=== PATIENT | male | born 1945 | race Caucasian/White ===

== ENCOUNTER 2017-03-02 14:03 | Emergency (ER) | payer MEDICARE ==
[2017-03-02] MEDS ORDERED: ONDANSETRON 4 MG/2 ML VIAL IVP STA (14:23)
[2017-03-02] MEDS ORDERED: DIPHENOX-ATROP STARTER PACK 8 TAB BTL PO STA ×2 (14:23→16:46)
--- NOTE | 2017-03-02 14:33 | ED ---
General Adult HPI - General Chief complaint: Fever Stated complaint: RENALDO sandoval H/O Diabetes Time Seen by Provider: 03/02/17 14:05 Source: patient, RN notes reviewed Mode of arrival: wheelchair Limitations: no limitations - History of Present Illness Initial comments: This is a 71-year-old male who presents to emergency department complaining of starting shaking 2 hours ago. Patient did not realize he had a high fever. Patient states he had diarrhea for last couple of days. Patient states he has not been on any antibiotics recently. Patient states he hasn't been nauseated until he reached the hospital and he vomited times one. Patient states she's only had some abdominal cramping but no abdominal pain. Patient states he did not get influenza shot this year. Patient denies headache patient denies numbness weakness. Patient was lightheadedness dizziness or near syncopal episode. Patient denies any chest pain palpitations difficulty breathing shortest breath per patient denies any cough. Patient denies any back pain. Patient denies any dysuria hematuria urinary frequency. Patient denies any recent recent rashes or lesions. - Related Data Home Medications Medication Instructions Recorded Confirmed Cetirizine HCl [Zyrtec] 10 mg PO HS 04/23/15 03/02/17 Cholecalciferol [Vitamin D3] 1,000 unit PO DAILY 04/23/15 03/02/17 Cilostazol [Pletal] 100 mg PO BID 04/23/15 03/02/17 Clopidogrel [Plavix] 75 mg PO DAILY 04/23/15 03/02/17 Fish Oil/Dha/Epa [Fish Oil 1,200 1 cap PO DAILY 04/23/15 03/02/17 mg Fish Oil] Gabapentin [Neurontin] 800 mg PO QID 04/23/15 03/02/17 Levothyroxine Sodium [Levoxyl] 200 mcg PO DAILY 04/23/15 03/02/17 Melatonin 5 mg PO HS 04/23/15 03/02/17 Multivitamins, Thera [Multivitamin 1 tab PO DAILY 04/23/15 03/02/17 (formulary)] Vitamin B Complex 1 cap PO DAILY 04/23/15 03/02/17 Insulin NPH Human Isophane 42 unit SQ W/BRKFST 04/24/15 03/02/17 [NovoLIN N] Atorvastatin Calcium [Lipitor] 40 mg PO HS 03/02/17 03/02/17 Calcium Carbonate [Calcium] 600 mg PO BID 03/02/17 03/02/17 Ferrous Sulfate [Feosol] 325 mg PO DAILY 03/02/17 03/02/17 Insulin NPH Human Isophane See Protocol SQ HS 03/02/17 03/02/17 [NovoLIN N] Insulin Regular, Human [NovoLIN R] 35 units SQ AC-TID 03/02/17 03/02/17 Insulin Regular, Human [NovoLIN R] See Protocol SQ PC-TID 03/02/17 03/02/17 Lisinopril [Zestril] 20 mg PO BID 03/02/17 03/02/17 Metoprolol Succinate (ER) [Toprol 25 mg PO DAILY 03/02/17 03/02/17 Xl] Pantoprazole Sodium [Protonix] 20 mg PO BID 03/02/17 03/02/17 Ubidecarenone [Co Q-10] 100 mg PO DAILY 03/02/17 03/02/17 metFORMIN HCL [Glucophage] 500 mg PO BID 03/02/17 03/02/17 rOPINIRole HCL [Requip Xl] 2 mg PO HS 03/02/17 03/02/17 Previous Rx's Medication Instructions Recorded Furosemide [Lasix] 40 mg PO DAILY tab 04/26/15 Allergies Allergy/AdvReac Type Severity Reaction Status Date / Time venom-honey bee Allergy Anaphylaxis Verified 03/02/17 16:14 [bee venom (honey bee)] Qmvsoqf-Iqh-Sct Reductase AdvReac Severe Muscle Verified 03/02/17 16:14 Inhibitor Cramping aspirin AdvReac Bleeding Verified 03/02/17 16:14 Ulcers grass pollen-perennial rye, AdvReac Vertigo Verified 03/02/17 16:14 standar [grass poll-perennial rye,std] mold AdvReac Vertigo Verified 03/02/17 16:14 Review of Systems ROS Statement: Those systems with pertinent positive or pertinent negative responses have been documented in the HPI. ROS Other: All systems not noted in ROS Statement are negative. Past Medical History Past Medical History: Atrial Fibrillation, Coronary Artery Disease (CAD), Cancer , COPD, Diabetes Mellitus, GERD/Reflux, GI Bleed, Hyperlipidemia, Hypertension, Osteoarthritis (OA), Renal Disease, Thyroid Disorder Additional Past Medical History / Comment(s): thyroid ca, left adrenal gland ca - removed, arhtritis lower back, enlarged heart, migranies,diverticulitis, pinched nerve in diapragmn, pt stated " i have natrually thin blood" History of Any Multi-Drug Resistant Organisms: None Reported Past Surgical History: Cholecystectomy, Coronary Bypass/CABG, Heart Catheterization With Stent, Tonsillectomy Additional Past Surgical History / Comment(s): thyroidectomy adrenal gland removed, 12 heart cath with stents, "open heart to repair hole in heart" nasal sx for deviated septum,uvulectomy, paratyhroidectomy. Past Anesthesia/Blood Transfusion Reactions: No Reported Reaction Additional Past Anesthesia/Blood Transfusion Reaction / Comment(s): clausterphobia. past blood transfusions without problems. Date of Last Stent Placement:: Past Psychological History: No Psychological Hx Reported Smoking Status: Former smoker Past Alcohol Use History: Rare Additional Past Alcohol Use History / Comment(s): smoked for 3 years then quit at age 22. Past Drug Use History: None Reported Additional Drug Use History / Comment(s): in the 1970s smoked marijuana - Past Family History Father Family Medical History: Renal Disease Additional Family Medical History / Comment(s): heart problems Mother Family Medical History: Diabetes Mellitus General Exam - General Exam Comments Initial Comments: GENERAL: Patient is well-developed and well-nourished. Patient is nontoxic and well- hydrated and is in mild distress. ENT: Neck is soft and supple. No significant lymphadenopathy is noted. Oropharynx is clear. Moist mucous membranes. Neck has full range of motion without eliciting any pain. EYES: The sclera were anicteric and conjunctiva were pink and moist. Extraocular movements were intact and pupils were equal round and reactive to light. Eyelids were unremarkable. PULMONARY: Unlabored respirations. Good breath sounds bilaterally. No audible rales rhonchi or wheezing was noted. CARDIOVASCULAR: There is a regular rate and rhythm without any murmurs gallops or rubs. ABDOMEN: Soft and nontender with normal bowel sounds. No palpable organomegaly was noted. There is no palpable pulsatile mass. SKIN: Skin is clear with no lesions or rashes and otherwise unremarkable. NEUROLOGIC: Patient is alert and oriented x3. Cranial nerves II through XII are grossly intact. Motor and sensory are also intact. Normal speech, volume and content. Symmetrical smile. MUSCULOSKELETAL: Normal extremities with adequate strength and full range of motion. LYMPHATICS: No significant lymphadenopathy is noted PSYCHIATRIC: Normal psychiatric evaluation. Normal interpersonal interactions appears functionally intact in deals appropriately with others. No signs of depression. No signs of anxiety. Limitations: no limitations Course Vital Signs 03/02/17 03/02/17 03/02/17 14:06 14:20 14:24 Temperature 102 F H 102.1 F H Pulse Rate 112 H 107 H Respiratory 20 18 Rate Blood Pressure 184/82 142/63 O2 Sat by Pulse 90 L 95 Oximetry 03/02/17 03/02/17 03/02/17 15:19 16:04 16:40 Temperature 101.1 F H Pulse Rate 78 89 Respiratory 18 16 Rate Blood Pressure 109/55 119/64 108/49 O2 Sat by Pulse 95 96 Oximetry Medical Decision Making - Medical Decision Making EKG shows sinus rhythm with PACs. Patient's rate is 96 bpm LA interval 158 QRS is 136 Q-T intervals 366 QTC is 462 per patient's EKG shows a right bundle branch block. Patient's chest x-ray shows no acute abnormality. I went back into the room the patient was eating ice chips stated he felt considerably better and is willing to go home. Patient states anything gets worse she'll come back into the emergency department - Lab Data Result diagrams: 03/02/17 14:40 03/02/17 14:40 Lab Results 03/02/17 03/02/17 03/02/17 Range/Units 14:40 14:40 14:40 WBC 16.2 H (3.8-10.6) k/uL RBC 4.24 L (4.30-5.90) m/uL Hgb 11.9 L (13.0-17.5) gm/dL Hct 35.0 L (39.0-53.0) % MCV 82.6 (80.0-100.0) fL MCH 28.1 (25.0-35.0) pg MCHC 34.0 (31.0-37.0) g/dL RDW 14.2 (11.5-15.5) % Plt Count 235 (150-450) k/uL Neutrophils % 92 % Lymphocytes % 4 % Monocytes % 4 % Eosinophils % 0 % Basophils % 0 % Neutrophils # 14.9 H (1.3-7.7) k/uL Lymphocytes # 0.6 L (1.0-4.8) k/uL Monocytes # 0.6 (0-1.0) k/uL Eosinophils # 0.1 (0-0.7) k/uL Basophils # 0.0 (0-0.2) k/uL PT (9.0-12.0) sec INR (<1.1) APTT (22.0-30.0) sec Sodium 141 (137-145) mmol/L Potassium 3.9 (3.5-5.1) mmol/L Chloride 107 (98-107) mmol/L Carbon Dioxide 22 (22-30) mmol/L Anion Gap 12 mmol/L BUN 32 H (9-20) mg/dL Creatinine 1.46 H (0.66-1.25) mg/dL Est GFR (MDRD) Af Amer 58 (>60 ml/min/1.73 sqM) Est GFR (MDRD) Non-Af 48 (>60 ml/min/1.73 sqM) Glucose 100 H (74-99) mg/dL Plasma Lactic Acid Artie (0.7-2.0) mmol/L Calcium 8.7 (8.4-10.2) mg/dL Total Bilirubin 0.8 (0.2-1.3) mg/dL AST 26 (17-59) U/L ALT 38 (21-72) U/L Alkaline Phosphatase 80 (38-126) U/L Total Creatine Kinase 254 H (55-170) U/L CK-MB (CK-2) 3.3 H* (0.0-2.4) ng/mL CK-MB (CK-2) Rel Index 1.3 Troponin I <0.012 (0.000-0.034) ng/mL Total Protein 6.9 (6.3-8.2) g/dL Albumin 3.9 (3.5-5.0) g/dL Urine Color Urine Appearance (Clear) Urine pH (5.0-8.0) Ur Specific [place] (1.001-1.035) Urine Protein (Negative) Urine Glucose (UA) (Negative) Urine Ketones (Negative) Urine Blood (Negative) Urine Nitrite (Negative) Urine Bilirubin (Negative) Urine Urobilinogen (<2.0) mg/dL Ur Leukocyte Esterase (Negative) Urine RBC (0-5) /hpf Urine WBC (0-5) /hpf Ur Squamous Epith Cells (0-4) /hpf Cellular Casts (0) /lpf Hyaline Casts (0-2) /lpf Influenza Type A RNA (Not Detectd) Influenza Type B (PCR) (Not Detectd) 03/02/17 03/02/17 03/02/17 Range/Units 14:40 14:40 14:48 WBC (3.8-10.6) k/uL RBC (4.30-5.90) m/uL Hgb (13.0-17.5) gm/dL Hct (39.0-53.0) % MCV (80.0-100.0) fL MCH (25.0-35.0) pg MCHC (31.0-37.0) g/dL RDW (11.5-15.5) % Plt Count (150-450) k/uL Neutrophils % % Lymphocytes % % Monocytes % % Eosinophils % % Basophils % % Neutrophils # (1.3-7.7) k/uL Lymphocytes # (1.0-4.8) k/uL Monocytes # (0-1.0) k/uL Eosinophils # (0-0.7) k/uL Basophils # (0-0.2) k/uL PT 10.6 (9.0-12.0) sec INR 1.0 (<1.1) APTT 23.5 (22.0-30.0) sec Sodium (137-145) mmol/L Potassium (3.5-5.1) mmol/L Chloride (98-107) mmol/L Carbon Dioxide (22-30) mmol/L Anion Gap mmol/L BUN (9-20) mg/dL Creatinine (0.66-1.25) mg/dL Est GFR (MDRD) Af Amer (>60 ml/min/1.73 sqM) Est GFR (MDRD) Non-Af (>60 ml/min/1.73 sqM) Glucose (74-99) mg/dL Plasma Lactic Acid Artie 1.8 (0.7-2.0) mmol/L Calcium (8.4-10.2) mg/dL Total Bilirubin (0.2-1.3) mg/dL AST (17-59) U/L ALT (21-72) U/L Alkaline Phosphatase (38-126) U/L Total Creatine Kinase (55-170) U/L CK-MB (CK-2) (0.0-2.4) ng/mL CK-MB (CK-2) Rel Index Troponin I (0.000-0.034) ng/mL Total Protein (6.3-8.2) g/dL Albumin (3.5-5.0) g/dL Urine Color Urine Appearance (Clear) Urine pH (5.0-8.0) Ur Specific [place] (1.001-1.035) Urine Protein (Negative) Urine Glucose (UA) (Negative) Urine Ketones (Negative) Urine Blood (Negative) Urine Nitrite (Negative) Urine Bilirubin (Negative) Urine Urobilinogen (<2.0) mg/dL Ur Leukocyte Esterase (Negative) Urine RBC (0-5) /hpf Urine WBC (0-5) /hpf Ur Squamous Epith Cells (0-4) /hpf Cellular Casts (0) /lpf Hyaline Casts (0-2) /lpf Influenza Type A RNA Not Detected (Not Detectd) Influenza Type B (PCR) Not Detected (Not Detectd) 03/02/17 Range/Units 16:00 WBC (3.8-10.6) k/uL RBC (4.30-5.90) m/uL Hgb (13.0-17.5) gm/dL Hct (39.0-53.0) % MCV (80.0-100.0) fL MCH (25.0-35.0) pg MCHC (31.0-37.0) g/dL RDW (11.5-15.5) % Plt Count (150-450) k/uL Neutrophils % % Lymphocytes % % Monocytes % % Eosinophils % % Basophils % % Neutrophils # (1.3-7.7) k/uL Lymphocytes # (1.0-4.8) k/uL Monocytes # (0-1.0) k/uL Eosinophils # (0-0.7) k/uL Basophils # (0-0.2) k/uL PT (9.0-12.0) sec INR (<1.1) APTT (22.0-30.0) sec Sodium (137-145) mmol/L Potassium (3.5-5.1) mmol/L Chloride (98-107) mmol/L Carbon Dioxide (22-30) mmol/L Anion Gap mmol/L BUN (9-20) mg/dL Creatinine (0.66-1.25) mg/dL Est GFR (MDRD) Af Amer (>60 ml/min/1.73 sqM) Est GFR (MDRD) Non-Af (>60 ml/min/1.73 sqM) Glucose (74-99) mg/dL Plasma Lactic Acid Artie (0.7-2.0) mmol/L Calcium (8.4-10.2) mg/dL Total Bilirubin (0.2-1.3) mg/dL AST (17-59) U/L ALT (21-72) U/L Alkaline Phosphatase (38-126) U/L Total Creatine Kinase (55-170) U/L CK-MB (CK-2) (0.0-2.4) ng/mL CK-MB (CK-2) Rel Index Troponin I (0.000-0.034) ng/mL Total Protein (6.3-8.2) g/dL Albumin (3.5-5.0) g/dL Urine Color Yellow Urine Appearance Clear (Clear) Urine pH 5.0 (5.0-8.0) Ur Specific [place] 1.012 (1.001-1.035) Urine Protein 1+ H (Negative) Urine Glucose (UA) Negative (Negative) Urine Ketones Negative (Negative) Urine Blood Negative (Negative) Urine Nitrite Negative (Negative) Urine Bilirubin Negative (Negative) Urine Urobilinogen <2.0 (<2.0) mg/dL Ur Leukocyte Esterase Negative (Negative) Urine RBC 1 (0-5) /hpf Urine WBC <1 (0-5) /hpf Ur Squamous Epith Cells <1 (0-4) /hpf Cellular Casts 1 (0) /lpf Hyaline Casts 3 H (0-2) /lpf Influenza Type A RNA (Not Detectd) Influenza Type B (PCR) (Not Detectd) Disposition Clinical Impression: Gastroenteritis Disposition: HOME SELF-CARE Instructions: Gastroenteritis (ED) Time of Disposition: 16:45
[2017-03-02] MEDS: SODIUM CHLORIDE 0.9% 500 ML IV SCH ×3 (14:41→15:54)
[2017-03-02] MEDS ORDERED: IBUPROFEN IV 600 MG in SODIUM CHLORIDE 0.9% 250 ML IV STA (14:46)
[2017-03-02] MEDS ORDERED: ACETAMINOPHEN IV (For NPO) 1,000 MG in EMPTY BAG 1 BAG IVPB STA (14:46)
[2017-03-02 14:55] LABS: Basophils % (A) 0 %; CH 28.3; CHCM 34.5; Eosinophils # (A) 0.1 k/uL (0-0.7); Eosinophils % (A) 0 %; HDW 2.97; HGB 11.9 gm/dL (13.0-17.5); Luc # (Auto) 0.08; Luc % (Auto) 1; Lymphocytes # (A) 0.6 k/uL (1.0-4.8); Lymphocytes % (A) 4 %; MCH 28.1 pg (25.0-35.0); MCV 82.6 fL (80.0-100.0); Monocytes # (A) 0.6 k/uL (0-1.0); Monocytes % (A) 4 %; Neutrophils # (A) 14.9 k/uL (1.3-7.7); Neutrophils % (A) 92 %; RBC 4.24 m/uL (4.30-5.90); RDW 14.2 % (11.5-15.5); WBC 16.2 k/uL (3.8-10.6); WBC (Perox) 16.59
[2017-03-02 15:03] LABS: Partial Thromboplastin Time 23.5 sec (22.0-30.0); Prothrombin Time 10.6 sec (9.0-12.0)
[2017-03-02 15:06] LABS: Calcium 8.7 mg/dL (8.4-10.2); Potassium 3.9 mmol/L (3.5-5.1); Total Bilirubin 0.8 mg/dL (0.2-1.3); Total Protein 6.9 g/dL (6.3-8.2)
--- NOTE | 2017-03-02 15:15 | XR ---
EXAMINATION TYPE: XR chest 2V DATE OF EXAM: 03/02/2017 3:05 PM COMPARISON: Prior chest x-ray 21 October 2015 HISTORY: Fever, abnormal chest x-ray, hypertension TECHNIQUE: Frontal and lateral views of the chest are obtained. FINDINGS: Patient is post median sternotomy and rotated, heart size may be accentuated by rotation a s on prior exam. There is no pneumothorax or pleural effusion. Right hemidiaphragm is mildly elevated . Pulmonary vascularity and apple are stable. No evident airspace disease. Prominent lung volumes are again noted. IMPRESSION: Stable exam. No acute abnormalities evident.
[2017-03-02 15:29] LABS: Creatine Kinase 254 U/L (55-170)
[2017-03-02 15:42] LABS: Creatine Kinase MB 3.3 ng/mL (0.0-2.4); Troponin I <0.012 ng/mL (0.000-0.034)
[2017-03-02 16:14] LABS: Appearance,Urine Clear (Clear); Bilirubin,Urine Negative (Negative); Glucose,Urine (UA) Negative (Negative); Ketones,Urine Negative (Negative); Leukocyte Esterase,Urine Negative (Negative); Nitrite,Urine Negative (Negative); Particle Count 1569; Protein,Urine 1+ (Negative); RBC,Urine 1 /hpf (0-5); Specific Gravity,Urine 1.012 (1.001-1.035); Squamous Epithelial Cell,Urine <1 /hpf (0-4); UA Billing (MACRO vs. MICRO) MICRO; Urobilinogen,Urine <2.0 mg/dL (<2.0); WBC,Urine <1 /hpf (0-5)
[2017-03-02] MEDS ORDERED: ONDANSETRON 4 MG ODT STARTER PACK 2 TAB BTL PO STA (16:46)
[2017-03-02 16:57] VITALS: BP 112/56; PULSE 65; RESP 18; TEMP 97.8
== END 2017-03-02 17:07 | disposition home or self-care (01) ==
LOC: EC 14:03
DX: K52.9 Noninfective gastroenteritis and colitis, unspecified (principal); R11.2 Nausea with vomiting, unspecified; I25.10 Atherosclerotic heart disease of native coronary artery without angina pectoris; E78.5 Hyperlipidemia, unspecified; I10 Essential (primary) hypertension; E11.9 Type 2 diabetes mellitus without complications; K21.9 Gastro-esophageal reflux disease without esophagitis; M19.90 Unspecified osteoarthritis, unspecified site; E07.9 Disorder of thyroid, unspecified; I48.91 Unspecified atrial fibrillation; Z87.891 Personal history of nicotine dependence; Z79.02 Long term (current) use of antithrombotics/antiplatelets; Z79.4 Long term (current) use of insulin; Z79.899 Other long term (current) drug therapy; Z91.030 Bee allergy status; Z88.6 Allergy status to analgesic agent; Z91.048 Other nonmedicinal substance allergy status; Z88.8 Allergy status to other drugs, medicaments and biological substances; Z85.850 Personal history of malignant neoplasm of thyroid; Z95.5 Presence of coronary angioplasty implant and graft; Z90.49 Acquired absence of other specified parts of digestive tract
CPT/HCPCS: 36415; 93005; 80053; 82550; 82553; 83605; 84484; 85025; 85610; 85730; 81001; 87040; 87086; 87502; 71020; 99284; 96365; 96375; 96361; J2405; J0131; S0119; J1741

== ENCOUNTER 2017-03-04 12:21 | Inpatient (IN) | payer MEDICARE ==
--- NOTE | 2017-03-04 13:28 | ED ---
General Adult HPI - General Chief complaint: Fever Stated complaint: poss blood clot in leg Time Seen by Provider: 03/04/17 13:00 Source: patient, RN notes reviewed Mode of arrival: wheelchair Limitations: no limitations - History of Present Illness Initial comments: This is a 71-year-old male who comes to the emergency room complaining of right leg swelling. Patient states he was in the emergency department 2 days ago with nausea vomiting diarrhea and a fever. Patient states the fever has persisted and now is somewhat short of breath. Patient denies any recent cough. Patient denies any chest pain or palpitations. Patient states the leg started swelling once he left the hospital and now is red on the ankle down. Patient states he has some calf pain and some right groin pain. Patient denies any injury or trauma to that leg. Patient denies any abdominal pain. Patient states he has not been vomiting recently. Patient denies any lightheadedness dizziness or near syncopal episode. - Related Data Home Medications Medication Instructions Recorded Confirmed Cetirizine HCl [Zyrtec] 10 mg PO HS 04/23/15 03/04/17 Cilostazol [Pletal] 100 mg PO BID 04/23/15 03/04/17 Clopidogrel [Plavix] 75 mg PO DAILY 04/23/15 03/04/17 Gabapentin [Neurontin] 800 mg PO QID 04/23/15 03/04/17 Levothyroxine Sodium [Levoxyl] 200 mcg PO DAILY 04/23/15 03/04/17 Melatonin 5 mg PO HS 04/23/15 03/04/17 Vitamin B Complex 1 cap PO DAILY 04/23/15 03/04/17 Insulin NPH Human Isophane 90 unit SQ BID 04/24/15 03/04/17 [NovoLIN N] Atorvastatin Calcium [Lipitor] 40 mg PO HS 03/02/17 03/04/17 Insulin Regular, Human [NovoLIN R] 35 units SQ AC-TID 03/02/17 03/04/17 Insulin Regular, Human [NovoLIN R] See Protocol SQ PC-TID 03/02/17 03/04/17 Lisinopril [Zestril] 20 mg PO BID 03/02/17 03/04/17 Pantoprazole Sodium [Protonix] 20 mg PO BID 03/02/17 03/04/17 Ubidecarenone [Co Q-10] 100 mg PO DAILY 03/02/17 03/04/17 metFORMIN HCL [Glucophage] 500 mg PO AC-BID 03/02/17 03/04/17 rOPINIRole HCL [Requip Xl] 2 mg PO HS 03/02/17 03/04/17 Ascorbic Acid [Vitamin C] 500 mg PO DAILY 03/04/17 03/04/17 Calcium Carbonate/Vitamin D3 1 tab PO BID 03/04/17 03/04/17 [Calcium 600-Vit D3 400 Caplet] Cholecalciferol [Vitamin D3] 400 unit PO DAILY 03/04/17 03/04/17 DULoxetine HCL [Cymbalta] 30 mg PO DAILY 03/04/17 03/04/17 Metoprolol Tartrate [Lopressor] 100 mg PO BID 03/04/17 03/04/17 Multivit-Min/FA/Lycopene/Lut 1 tab PO DAILY 03/04/17 03/04/17 [Centrum Silver Tablet] [place]-3 Fatty Acids/Fish Oil [Fish 1 cap PO DAILY 03/04/17 03/04/17 Oil 1,000 mg Softgel] Previous Rx's Medication Instructions Recorded Furosemide [Lasix] 40 mg PO DAILY tab 04/26/15 Allergies Allergy/AdvReac Type Severity Reaction Status Date / Time venom-honey bee Allergy Anaphylaxis Verified 03/04/17 12:52 [bee venom (honey bee)] Oilrnqu-Sno-Wwo Reductase AdvReac Severe Muscle Verified 03/04/17 12:52 Inhibitor Cramping aspirin AdvReac Bleeding Verified 03/04/17 12:52 Ulcers grass pollen-perennial rye, AdvReac Vertigo Verified 03/04/17 12:52 standar [grass poll-perennial rye,std] mold AdvReac Vertigo Verified 03/04/17 12:52 Review of Systems ROS Statement: Those systems with pertinent positive or pertinent negative responses have been documented in the HPI. ROS Other: All systems not noted in ROS Statement are negative. Past Medical History Past Medical History: Atrial Fibrillation, Coronary Artery Disease (CAD), Cancer , COPD, Diabetes Mellitus, GERD/Reflux, GI Bleed, Hyperlipidemia, Hypertension, Osteoarthritis (OA), Renal Disease, Thyroid Disorder Additional Past Medical History / Comment(s): thyroid ca, left adrenal gland ca - removed, arhtritis lower back, enlarged heart, migranies,diverticulitis, pinched nerve in diapragmn, pt stated " i have natrually thin blood" History of Any Multi-Drug Resistant Organisms: None Reported Past Surgical History: Cholecystectomy, Coronary Bypass/CABG, Heart Catheterization With Stent, Tonsillectomy Additional Past Surgical History / Comment(s): thyroidectomy adrenal gland removed, 12 heart cath with stents, "open heart to repair hole in heart" nasal sx for deviated septum,uvulectomy, paratyhroidectomy. Past Anesthesia/Blood Transfusion Reactions: No Reported Reaction Additional Past Anesthesia/Blood Transfusion Reaction / Comment(s): clausterphobia. past blood transfusions without problems. Date of Last Stent Placement:: Past Psychological History: No Psychological Hx Reported Smoking Status: Former smoker Past Alcohol Use History: Rare Additional Past Alcohol Use History / Comment(s): smoked for 3 years then quit at age 22. Past Drug Use History: None Reported Additional Drug Use History / Comment(s): in the 1970s smoked marijuana - Past Family History Father Family Medical History: Renal Disease Additional Family Medical History / Comment(s): heart problems Mother Family Medical History: Diabetes Mellitus General Exam - General Exam Comments Initial Comments: GENERAL: Patient is well-developed and well-nourished. Patient is nontoxic and well- hydrated and is in mild distress. ENT: Neck is soft and supple. No significant lymphadenopathy is noted. Oropharynx is clear. Moist mucous membranes. Neck has full range of motion without eliciting any pain. EYES: The sclera were anicteric and conjunctiva were pink and moist. Extraocular movements were intact and pupils were equal round and reactive to light. Eyelids were unremarkable. PULMONARY: Unlabored respirations. Good breath sounds bilaterally. No audible rales rhonchi or wheezing was noted. CARDIOVASCULAR: There is a regular rate and rhythm without any murmurs gallops or rubs. ABDOMEN: Soft and nontender with normal bowel sounds. No palpable organomegaly was noted. There is no palpable pulsatile mass. SKIN: The leg has some petechiae in the lower aspect of it is also swollen when compared to the left leg NEUROLOGIC: Patient is alert and oriented x3. Cranial nerves II through XII are grossly intact. Motor and sensory are also intact. Normal speech, volume and content. Symmetrical smile. MUSCULOSKELETAL: Normal extremities with adequate strength and full range of motion. Left leg is swollen and there is calf tenderness. LYMPHATICS: No significant lymphadenopathy is noted PSYCHIATRIC: Normal psychiatric evaluation. Normal interpersonal interactions appears functionally intact in deals appropriately with others. No signs of depression. No signs of anxiety. Limitations: no limitations Course Vital Signs 03/04/17 03/04/17 03/04/17 12:53 13:52 14:59 Temperature 98.4 F 98.3 F 97.7 F Pulse Rate 74 76 75 Respiratory 16 18 18 Rate Blood Pressure 136/67 120/57 95/52 O2 Sat by Pulse 96 96 96 Oximetry 03/04/17 03/04/17 16:51 18:15 Temperature 97.4 F L 98.0 F Pulse Rate 77 84 Respiratory 18 18 Rate Blood Pressure 114/56 123/59 O2 Sat by Pulse 97 96 Oximetry Medical Decision Making - Medical Decision Making At 71 bpm NH interval 160 QRS is under 44 QT interval is 448. QTC is 484 6. Patient has reportedly branch block. Patient's EKG is unchanged from the previous EKG. I went back into reevaluate the patient and is in her right thigh was now erythematous and very tender to touch. The ultrasound of the leg was negative for DVT. Patient's CAT scan showed no DVT. Because the patient's redness on the leg I did start patient on Levaquin. I spoke with Dr. Tanner admitted the patient I wrote admitting orders. - Lab Data Result diagrams: 03/04/17 13:34 03/04/17 13:34 Lab Results 03/04/17 03/04/17 03/04/17 Range/Units 13:34 13:34 13:34 WBC 13.2 H (3.8-10.6) k/uL RBC 4.10 L (4.30-5.90) m/uL Hgb 11.4 L (13.0-17.5) gm/dL Hct 34.4 L (39.0-53.0) % MCV 84.0 (80.0-100.0) fL MCH 27.8 (25.0-35.0) pg MCHC 33.1 (31.0-37.0) g/dL RDW 14.5 (11.5-15.5) % Plt Count 204 (150-450) k/uL Neutrophils % 85 % Lymphocytes % 8 % Monocytes % 5 % Eosinophils % 0 % Basophils % 0 % Neutrophils # 11.2 H (1.3-7.7) k/uL Lymphocytes # 1.0 (1.0-4.8) k/uL Monocytes # 0.6 (0-1.0) k/uL Eosinophils # 0.0 (0-0.7) k/uL Basophils # 0.0 (0-0.2) k/uL PT (9.0-12.0) sec INR (<1.1) APTT (22.0-30.0) sec D-Dimer (<0.60) mg/L FEU Sodium 140 (137-145) mmol/L Potassium 3.8 (3.5-5.1) mmol/L Chloride 107 (98-107) mmol/L Carbon Dioxide 21 L (22-30) mmol/L Anion Gap 12 mmol/L BUN 32 H (9-20) mg/dL Creatinine 1.52 H (0.66-1.25) mg/dL Est GFR (MDRD) Af Amer 55 (>60 ml/min/1.73 sqM) Est GFR (MDRD) Non-Af 46 (>60 ml/min/1.73 sqM) Glucose 193 H (74-99) mg/dL Plasma Lactic Acid Artie (0.7-2.0) mmol/L Calcium 7.7 L (8.4-10.2) mg/dL Total Bilirubin 1.0 (0.2-1.3) mg/dL AST 33 (17-59) U/L ALT 34 (21-72) U/L Alkaline Phosphatase 69 (38-126) U/L Total Creatine Kinase 437 H (55-170) U/L CK-MB (CK-2) 5.9 H* (0.0-2.4) ng/mL CK-MB (CK-2) Rel Index 1.4 Troponin I <0.012 (0.000-0.034) ng/mL Total Protein 6.5 (6.3-8.2) g/dL Albumin 3.4 L (3.5-5.0) g/dL Urine Color Urine Appearance (Clear) Urine pH (5.0-8.0) Ur Specific [place] (1.001-1.035) Urine Protein (Negative) Urine Glucose (UA) (Negative) Urine Ketones (Negative) Urine Blood (Negative) Urine Nitrite (Negative) Urine Bilirubin (Negative) Urine Urobilinogen (<2.0) mg/dL Ur Leukocyte Esterase (Negative) 03/04/17 03/04/17 03/04/17 Range/Units 13:34 13:34 16:06 WBC (3.8-10.6) k/uL RBC (4.30-5.90) m/uL Hgb (13.0-17.5) gm/dL Hct (39.0-53.0) % MCV (80.0-100.0) fL MCH (25.0-35.0) pg MCHC (31.0-37.0) g/dL RDW (11.5-15.5) % Plt Count (150-450) k/uL Neutrophils % % Lymphocytes % % Monocytes % % Eosinophils % % Basophils % % Neutrophils # (1.3-7.7) k/uL Lymphocytes # (1.0-4.8) k/uL Monocytes # (0-1.0) k/uL Eosinophils # (0-0.7) k/uL Basophils # (0-0.2) k/uL PT 10.9 (9.0-12.0) sec INR 1.1 (<1.1) APTT 27.4 (22.0-30.0) sec D-Dimer 1.04 H (<0.60) mg/L FEU Sodium (137-145) mmol/L Potassium (3.5-5.1) mmol/L Chloride (98-107) mmol/L Carbon Dioxide (22-30) mmol/L Anion Gap mmol/L BUN (9-20) mg/dL Creatinine (0.66-1.25) mg/dL Est GFR (MDRD) Af Amer (>60 ml/min/1.73 sqM) Est GFR (MDRD) Non-Af (>60 ml/min/1.73 sqM) Glucose (74-99) mg/dL Plasma Lactic Acid Artie 1.4 (0.7-2.0) mmol/L Calcium (8.4-10.2) mg/dL Total Bilirubin (0.2-1.3) mg/dL AST (17-59) U/L ALT (21-72) U/L Alkaline Phosphatase (38-126) U/L Total Creatine Kinase (55-170) U/L CK-MB (CK-2) (0.0-2.4) ng/mL CK-MB (CK-2) Rel Index Troponin I (0.000-0.034) ng/mL Total Protein (6.3-8.2) g/dL Albumin (3.5-5.0) g/dL Urine Color Yellow Urine Appearance Clear (Clear) Urine pH 5.5 (5.0-8.0) Ur Specific [place] 1.010 (1.001-1.035) Urine Protein Trace H (Negative) Urine Glucose (UA) Negative (Negative) Urine Ketones Negative (Negative) Urine Blood Negative (Negative) Urine Nitrite Negative (Negative) Urine Bilirubin Negative (Negative) Urine Urobilinogen <2.0 (<2.0) mg/dL Ur Leukocyte Esterase Negative (Negative) Disposition Clinical Impression: Cellulitis of right leg Disposition: ADMITTED IP TO THIS [facility] Referrals: Maria T Alvarado MD [Primary Care Provider] - 1-2 days Time of Disposition: 18:55
[2017-03-04 13:59] LABS: Basophils % (A) 0 %; CHCM 33.5; Eosinophils % (A) 0 %; HCT 34.4 % (39.0-53.0); HDW 2.99; HGB 11.4 gm/dL (13.0-17.5); Luc # (Auto) 0.29; Luc % (Auto) 2; Lymphocytes % (A) 8 %; MCH 27.8 pg (25.0-35.0); MCHC 33.1 g/dL (31.0-37.0); Mean Platelet Volume 7.2; Monocytes # (A) 0.6 k/uL (0-1.0); Monocytes % (A) 5 %; Neutrophils # (A) 11.2 k/uL (1.3-7.7); Neutrophils % (A) 85 %; RDW 14.5 % (11.5-15.5); WBC 13.2 k/uL (3.8-10.6); WBC (Perox) 13.69
[2017-03-04 14:08] LABS: Calcium 7.7 mg/dL (8.4-10.2); Potassium 3.8 mmol/L (3.5-5.1); Total Protein 6.5 g/dL (6.3-8.2)
--- NOTE | 2017-03-04 14:09 | XR ---
EXAMINATION TYPE: XR chest 2V DATE OF EXAM: 03/04/2017 1:56 PM COMPARISON: 03-02-17 HISTORY: Shortness of breath TECHNIQUE: Frontal and lateral views of the chest are obtained. FINDINGS: Scattered senescent parenchymal changes noted. Hyperinflation compatible with COPD. No evidence for infiltrate. No evidence for atelectasis. Heart size is enlarged. Chronic elevation right hemidiaphragm. Central prominence of the pulmonary ar teries may reflect pulmonary arterial hypertension. Mediastinal structures are stable and grossly unremarkable. No evidence for hilar prominence. Degenerative changes dorsal spine. IMPRESSION: 1. No evidence for acute pulmonary disease. Stable chest.
[2017-03-04 14:16] LABS: INR 1.1 (<1.1); Partial Thromboplastin Time 27.4 sec (22.0-30.0); Prothrombin Time 10.9 sec (9.0-12.0)
[2017-03-04 14:22] LABS: Creatine Kinase 437 U/L (55-170)
--- NOTE | 2017-03-04 14:29 | US ---
EXAMINATION TYPE: US venous doppler duplex LE RT DATE OF EXAM: 03/04/2017 2:15 PM COMPARISON: US CLINICAL HISTORY: Pain. Right leg pain and swelling x 3 days, patient on blood thinners SIDE PERFORMED: Right TECHNIQUE: The lower extremity deep venous system is examined utilizing real time linear array sonog meg with graded compression, doppler sonography and color-flow sonography. VESSELS IMAGED: External Iliac Vein (EIV) Common Femoral Vein Deep Femoral Vein Greater Saphenous Vein * Femoral Vein Popliteal Vein Small Saphenous Vein * Proximal Calf Veins (* superficial vessels) Right Leg: Appears negative for DVT IMPRESSION: 1. No diagnostic evidence of DVT
[2017-03-04 14:36] LABS: Troponin I <0.012 ng/mL (0.000-0.034)
[2017-03-04 14:38] LABS: Creatine Kinase MB 5.9 ng/mL (0.0-2.4)
[2017-03-04 16:20] LABS: Appearance,Urine Clear (Clear); Bilirubin,Urine Negative (Negative); Glucose,Urine (UA) Negative (Negative); Ketones,Urine Negative (Negative); Leukocyte Esterase,Urine Negative (Negative); Nitrite,Urine Negative (Negative); PH, Urine 5.5 (5.0-8.0); Protein,Urine Trace (Negative); UA Billing (MACRO vs. MICRO) CHEM; Urobilinogen,Urine <2.0 mg/dL (<2.0)
[2017-03-04] MEDS ORDERED: RX INFO: IV CONTRAST WAS GIVEN 1 EACH MISC MISCELLANE PRN (16:41)
[2017-03-04] MEDS ORDERED: SODIUM CHLORIDE 0.9% 1,000 ML IV ONE ×2 (16:42→19:03)
[2017-03-04] MEDS ORDERED: LEVOFLOXACIN 750MG-D5W PMX 750 MG in DEXTROSE/WATER 1 150ML.BAG IVPB STA (16:52)
--- NOTE | 2017-03-04 18:49 | CT ---
EXAMINATION TYPE: CT chest angio for PE DATE OF EXAM: 03/04/2017 6:36 PM COMPARISON: NONE HISTORY: Patient complains of difficulty breathing. CT DLP: 640 mGycm CONTRAST: CT chest with contrast and 3D reconstruction with MIP imaging is performed with IV Contrast, patient injected with 100 mL of Visipaque 320. Contrast-enhanced CT of the chest was performed through the course of the pulmonary arteries with jose luis g and mediastinal window settings submitted. 3D reconstruction with MIP imaging was also performed. PULMONARY ARTERIES: The pulmonary arteries and their major tributaries are patent. I do not see nayely dence for sizable filling defect to suggest pulmonary embolic process. LUNGS: The lungs are clear and free of infiltrate. Dependent basilar atelectasis. No pulmonary nodule or mass is detected. No pleural effusion. MEDIASTINUM: Aneurysm, ascending thoracic aorta measuring 5.1 cm AP dimension. There is evidence of c ardiomegaly. No evidence for mediastinal mass. No mediastinal lymph nodes greater than 1cm. HILAR STRUCTURES: No evidence for mass. No hilar lymph nodes greater than 1 cm. UPPER ABDOMEN: No significant abnormality is seen. IMPRESSION: 1. No evidence for Pulmonary embolism at this time.
[2017-03-04 21:06] LABS: Glucose,Whole Blood 192 mg/dL (75-99)
[2017-03-04 22:07] VITALS: BMI 36.2
[2017-03-05] MEDS ORDERED: ACETAMINOPHEN TAB 325 MG TAB PO PRN (00:22)
[2017-03-05] MEDS: MELATONIN 5 MG TABLET PO SCH ×2 (01:44→20:50)
[2017-03-05] MEDS: LEVOTHYROXINE 100 MCG TAB PO SCH (06:21)
[2017-03-05 07:05] LABS: Glucose,Whole Blood 161 mg/dL (75-99)
[2017-03-05] MEDS ORDERED: metFORMIN 500 MG TAB PO SCH (07:30)
[2017-03-05] MEDS: FUROSEMIDE 40 MG TAB PO SCH (08:37)
[2017-03-05] MEDS: PANTOPRAZOLE 40 MG TABLET PO SCH ×2 (08:37→17:06)
[2017-03-05] MEDS: CLOPIDOGREL 75 MG TAB PO SCH (08:37)
[2017-03-05] MEDS: DULoxetine HCL 30 MG CAPSULE.DR PO SCH (08:37)
[2017-03-05] MEDS: LISINOPRIL 20 MG TAB PO SCH ×2 (08:38→20:49)
[2017-03-05] MEDS: METOPROLOL TARTRATE 50 MG TAB PO SCH ×2 (08:38→20:50)
[2017-03-05] MEDS: GABAPENTIN 400 MG CAP PO SCH ×4 (08:38→20:49)
[2017-03-05] MEDS: INSULIN LISPRO (humaLOG) 300 UNIT/3 ML VIAL SQ SCH ×4 (08:40→20:51)
[2017-03-05] MEDS: INSULIN NPH 300 UNIT/3 ML VIAL SQ SCH ×2 (08:40→20:53)
[2017-03-05] MEDS: INSULIN REGULAR 100 UNIT/ML VIAL SQ SCH ×3 (08:58→17:04)
[2017-03-05] MEDS: HYDROcodone/APAP 5-325MG 1 EACH TAB PO PRN ×3 (11:05→20:48)
[2017-03-05 11:39] LABS: Glucose,Whole Blood 163 mg/dL (75-99)
[2017-03-05 11:52] LABS: Hemoglobin A1C 7.3 % (4.2-6.1)
--- NOTE | 2017-03-05 14:15 | P.HPIM ---
History of Present Illness H&P Date: 03/05/17 Chief Complaint: Right leg swelling with redness This is a 71-year-old male, patient of Dr. Alvarado. He has a known past medical history of diabetes mellitus, chronic kidney disease, paroxysmal atrial fibrillation, coronary artery disease with cardiac stent and bypass surgery. Also history of irritable bowel syndrome, peptic ulcer disease and GI bleed. Patient had initially been to the emergency room a couple a days ago due to having diarrhea. Diagnosed with a gastroenteritis at that time. He was sent home. Patient then noticed that he was starting to have right leg swelling and redness along the new bone. He denies any injury to the leg. He started to have fever and chills. And came into the emergency room for further evaluation and treatment. He also had episodes of shortness of breath. He was concerned about a possible blood clot. D-dimer was checked and elevated at 1.04. CT of the chest was completed and was negative for PE Doppler study of the right leg with negative for DVT. Chest x-ray was also negative. EKG showing a normal sinus rhythm with a right bundle branch block. He was started on Levaquin in the emergency room for right lower extremity cellulitis. White count elevated at 13.2. And Lasix will be switched IV Ancef. Stool be checked for diarrhea. He reports that he's been having the diarrhea for about 10 days. He's had episodes of diarrhea before like this with known irritable bowel syndrome. Last colonoscopy was about a year ago and at that time they're checking the source of his anemia. He had require capsule endoscopy as well. No bleeding was noted on any of these tests. Per patient's he they thought there was a small bleeding vessel inside his bowel. And it has resolved. And since then has had no further bleeding episodes. Patient denies any vomiting. Denies any burning with urination. Review of Systems Please refer to HPI otherwise unremarkable Past Medical History Past Medical History: Atrial Fibrillation, Coronary Artery Disease (CAD), Cancer , COPD, Diabetes Mellitus, GERD/Reflux, GI Bleed, Hyperlipidemia, Hypertension, Osteoarthritis (OA), Renal Disease, Thyroid Disorder Additional Past Medical History / Comment(s): thyroid ca, left adrenal gland ca - removed, arhtritis lower back, enlarged heart, migranies,diverticulitis, pinched nerve in diapragmn, pt stated " i have natrually thin blood" History of Any Multi-Drug Resistant Organisms: None Reported Past Surgical History: Cholecystectomy, Coronary Bypass/CABG, Heart Catheterization With Stent, Tonsillectomy Additional Past Surgical History / Comment(s): thyroidectomy adrenal gland removed, 12 heart cath with stents, "open heart to repair hole in heart" nasal sx for deviated septum,uvulectomy, paratyhroidectomy. Past Anesthesia/Blood Transfusion Reactions: No Reported Reaction Additional Past Anesthesia/Blood Transfusion Reaction / Comment(s): clausterphobia. past blood transfusions without problems. Date of Last Stent Placement:: Past Psychological History: No Psychological Hx Reported Smoking Status: Former smoker Past Alcohol Use History: Rare Additional Past Alcohol Use History / Comment(s): smoked for 3 years then quit at age 22. Past Drug Use History: None Reported Additional Drug Use History / Comment(s): in the s smoked marijuana - Past Family History Father Family Medical History: Renal Disease Additional Family Medical History / Comment(s): heart problems Mother Family Medical History: Diabetes Mellitus Medications and Allergies Home Medications Medication Instructions Recorded Confirmed Type Cetirizine HCl [Zyrtec] 10 mg PO HS 04/23/15 03/04/17 History Cilostazol [Pletal] 100 mg PO BID 04/23/15 03/04/17 History Clopidogrel [Plavix] 75 mg PO DAILY 04/23/15 03/04/17 History Gabapentin [Neurontin] 800 mg PO QID 04/23/15 03/04/17 History Levothyroxine Sodium [Levoxyl] 200 mcg PO DAILY 04/23/15 03/04/17 History Melatonin 5 mg PO HS 04/23/15 03/04/17 History Vitamin B Complex 1 cap PO DAILY 04/23/15 03/04/17 History Insulin NPH Human Isophane 90 unit SQ BID 04/24/15 03/04/17 History [NovoLIN N] Atorvastatin Calcium [Lipitor] 40 mg PO HS 03/02/17 03/04/17 History Insulin Regular, Human [NovoLIN R] 35 units SQ AC-TID 03/02/17 03/04/17 History Insulin Regular, Human [NovoLIN R] See Protocol SQ PC-TID 03/02/17 03/04/17 History Lisinopril [Zestril] 20 mg PO BID 03/02/17 03/04/17 History Pantoprazole Sodium [Protonix] 20 mg PO BID 03/02/17 03/04/17 History Ubidecarenone [Co Q-10] 100 mg PO DAILY 03/02/17 03/04/17 History metFORMIN HCL [Glucophage] 500 mg PO AC-BID 03/02/17 03/04/17 History rOPINIRole HCL [Requip Xl] 2 mg PO HS 03/02/17 03/04/17 History Ascorbic Acid [Vitamin C] 500 mg PO DAILY 03/04/17 03/04/17 History Calcium Carbonate/Vitamin D3 1 tab PO BID 03/04/17 03/04/17 History [Calcium 600-Vit D3 400 Caplet] Cholecalciferol [Vitamin D3] 400 unit PO DAILY 03/04/17 03/04/17 History DULoxetine HCL [Cymbalta] 30 mg PO DAILY 03/04/17 03/04/17 History Metoprolol Tartrate [Lopressor] 100 mg PO BID 03/04/17 03/04/17 History Multivit-Min/FA/Lycopene/Lut 1 tab PO DAILY 03/04/17 03/04/17 History [Centrum Silver Tablet] [place]-3 Fatty Acids/Fish Oil [Fish 1 cap PO DAILY 03/04/17 03/04/17 History Oil 1,000 mg Softgel] Acetaminophen Tab [Tylenol Tab] 650 mg PO Q6H PRN 03/05/17 03/05/17 History Allergies Allergy/AdvReac Type Severity Reaction Status Date / Time venom-honey bee Allergy Anaphylaxis Verified 03/04/17 12:52 [bee venom (honey bee)] Svabjip-Okk-Ikn Reductase AdvReac Severe Muscle Verified 03/04/17 12:52 Inhibitor Cramping aspirin AdvReac Bleeding Verified 03/04/17 12:52 Ulcers grass pollen-perennial rye, AdvReac Vertigo Verified 03/04/17 12:52 standar [grass poll-perennial rye,std] mold AdvReac Vertigo Verified 03/04/17 12:52 Physical Exam Vitals: Vital Signs Temp Pulse Pulse Resp BP BP BP 03/05/17 08:23 03/05/17 07:00 97.0 F L 82 18 143/75 03/04/17 23:00 99.7 F H 84 18 140/61 03/04/17 21:00 98.2 F 84 20 153/70 03/04/17 20:21 98.6 F 90 18 142/86 Pulse Ox 03/05/17 08:23 95 03/05/17 07:00 95 03/04/17 23:00 97 03/04/17 21:00 98 03/04/17 20:21 98 Intake and Output 03/04/17 03/05/17 03/05/17 22:59 06:59 14:59 Other: # Voids 1 1 Weight 135 kg Head normocephalic Neck supple Lungs clear to auscultation bilaterally no wheezing or crackles Heart regular rate and rhythm S1-S2, no rub or gallop Abdomen is soft nontender nondistended positive bowel sounds no hepatosplenomegaly Extremities right lower extremity swelling with erythema and warmth noted along the right tibia. A swelling noted on the left lower extremity Neuro alert and orientated to 3 Results CBC & Chem 7: 03/04/17 13:34 03/04/17 13:34 Labs: Abnormal Lab Results - Last 24 Hours (Table) 03/04/17 03/05/17 03/05/17 Range/Units 20:50 06:55 11:37 POC Glucose (mg/dL) 192 H 161 H 163 H (75-99) mg/dL Thrombosis Risk Factor Assmnt - Choose All That Apply Any of the Below Risk Factors Present?: No Other Risk Factors: Yes Each Risk Factor Represents 2 Points: Age 61-74 years Thrombosis Risk Factor Assessment Total Risk Factor Score: 2 Thrombosis Risk Factor Assessment Level: Low Risk Assessment and Plan Plan: 1. Right lower extremity cellulitis: Start patient on Ancef 1 g IV every 8 hours. Also add Silvadene cream. Isidra leg with Kerlix and Migel wrap. Keep leg elevated. Check blood culture. Doppler of the right leg negative for DVT 2. Elevated d-dimer on admission CTA was negative for PE Doppler negative for DVT. 3. Shortness of breath on admission. PE has been ruled out. Chest x-ray negative. With known history of atrial fibrillation we'll place patient on cardiac monitoring to monitor for any arrhythmia. He's been on room air satting at 95%. Denies cough 4. History of paroxysmal atrial fibrillation not on anticoagulations due to history of bleeding 5. History of coronary artery disease with. His cardiac stents and bypass surgery 6. Diarrhea check stool for C. diff. recently seen in emergency room and treated as gastroenteritis 7. History of chronic kidney disease 8. 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 Diabetes mellitus resume patient's insulin and add sliding scale coverage 10. Essential hypertension resume lisinopril and metoprolol 11. Hypothyroidism resume Synthroid Prophylaxis subcu heparin and GI prophylaxis Pepcid Time with Patient: Greater than 30 (Greater than 50% of the total time spent in counseling and coordination of care.I performed an examination of the patient and discussed their management with the physician Employee Benefits Coordinator. I have reviewed the Physician Employee Benefits Coordinator's notes and agree with the documented findings and plan of care)
[2017-03-05] MEDS: ceFAZolin 1,000 MG in DEXTROSE/WATER 1 50ML.BAG IVPB SCH (14:47)
[2017-03-05 17:20] LABS: Glucose,Whole Blood 52 mg/dL (75-99)
[2017-03-05 17:20] LABS: Glucose,Whole Blood 48 mg/dL (75-99)
[2017-03-05 17:20] LABS: Glucose,Whole Blood 44 mg/dL (75-99)
[2017-03-05 17:38] LABS: Glucose,Whole Blood 63 mg/dL (75-99)
[2017-03-05 17:56] LABS: Glucose,Whole Blood 76 mg/dL (75-99)
[2017-03-05] MEDS ORDERED: LEVOFLOXACIN 750MG-D5W PMX 750 MG in DEXTROSE/WATER 1 150ML.BAG IVPB SCH (18:00)
[2017-03-05] MEDS: ATORVASTATIN 40 MG TAB PO SCH (20:49)
[2017-03-05] MEDS: CALCIUM CARB-VIT D 500MG-200UN 1 EACH TAB PO SCH (20:49)
[2017-03-05] MEDS: LORATADINE 10 MG TAB PO SCH (20:49)
[2017-03-05] MEDS: CILOSTAZOL 100 MG TAB PO SCH (20:50)
[2017-03-05] MEDS: HEPARIN SODIUM,PORCINE 5,000 UNIT/ML 1 ML VIAL SQ SCH (20:50)
[2017-03-05 20:52] LABS: Glucose,Whole Blood 124 mg/dL (75-99)
[2017-03-06] MEDS: ceFAZolin 1,000 MG in DEXTROSE/WATER 1 50ML.BAG IVPB SCH ×3 (00:32→15:35)
[2017-03-06] MEDS: HYDROcodone/APAP 5-325MG 1 EACH TAB PO PRN ×5 (01:10→22:04)
[2017-03-06] MEDS: LEVOTHYROXINE 100 MCG TAB PO SCH (06:18)
[2017-03-06 07:33] LABS: Glucose,Whole Blood 103 mg/dL (75-99)
[2017-03-06] MEDS: INSULIN LISPRO (humaLOG) 300 UNIT/3 ML VIAL SQ SCH ×4 (07:38→21:08)
[2017-03-06] MEDS: INSULIN REGULAR 100 UNIT/ML VIAL SQ SCH ×3 (07:39→17:40)
[2017-03-06] MEDS: CHOLECALCIFEROL 400 UNIT TAB PO SCH (07:41)
[2017-03-06] MEDS: PANTOPRAZOLE 40 MG TABLET PO SCH ×2 (07:41→17:40)
[2017-03-06] MEDS: CALCIUM CARB-VIT D 500MG-200UN 1 EACH TAB PO SCH ×2 (07:41→21:06)
[2017-03-06] MEDS: FAMOTIDINE 20 MG TAB PO SCH (07:42)
[2017-03-06] MEDS: CLOPIDOGREL 75 MG TAB PO SCH (07:42)
[2017-03-06] MEDS: CILOSTAZOL 100 MG TAB PO SCH ×2 (07:42→21:06)
[2017-03-06] MEDS: DULoxetine HCL 30 MG CAPSULE.DR PO SCH (07:42)
[2017-03-06] MEDS: GABAPENTIN 400 MG CAP PO SCH ×4 (07:43→21:07)
[2017-03-06] MEDS: HEPARIN SODIUM,PORCINE 5,000 UNIT/ML 1 ML VIAL SQ SCH ×2 (07:43→21:06)
[2017-03-06] MEDS: FUROSEMIDE 40 MG TAB PO SCH (07:43)
[2017-03-06] MEDS: INSULIN NPH 300 UNIT/3 ML VIAL SQ SCH ×2 (07:43→21:08)
[2017-03-06] MEDS: METOPROLOL TARTRATE 50 MG TAB PO SCH ×2 (07:45→21:07)
[2017-03-06] MEDS: LISINOPRIL 20 MG TAB PO SCH ×2 (07:46→21:06)
[2017-03-06 09:25] LABS: ALT 32 U/L (21-72); AST 24 U/L (17-59); Alkaline Phosphatase 72 U/L (38-126); Anion Gap 11 mmol/L; Blood Urea Nitrogen 28 mg/dL (9-20); Calcium 7.4 mg/dL (8.4-10.2); Carbon Dioxide 19 mmol/L (22-30); Chloride 111 mmol/L (98-107); Glucose 112 mg/dL (74-99); Non-African American GFR(MDRD) 59 (>60 ml/min/1.73 sqM); Potassium 3.9 mmol/L (3.5-5.1); Sodium 141 mmol/L (137-145); Total Bilirubin 0.6 mg/dL (0.2-1.3); Total Protein 6.1 g/dL (6.3-8.2)
[2017-03-06 09:43] LABS: Basophils % (A) 0 %; CHCM 33.4; Eosinophils # (A) 0.2 k/uL (0-0.7); Eosinophils % (A) 2 %; HCT 33.6 % (39.0-53.0); HDW 3.15; Luc # (Auto) 0.41; Luc % (Auto) 4; Lymphocytes # (A) 1.3 k/uL (1.0-4.8); Lymphocytes % (A) 11 %; MCH 27.7 pg (25.0-35.0); MCHC 32.8 g/dL (31.0-37.0); MCV 84.3 fL (80.0-100.0); Mean Platelet Volume 7.2; Monocytes # (A) 0.9 k/uL (0-1.0); Monocytes % (A) 8 %; Neutrophils # (A) 8.5 k/uL (1.3-7.7); Neutrophils % (A) 76 %; RBC 3.99 m/uL (4.30-5.90); RDW 14.3 % (11.5-15.5); WBC 11.2 k/uL (3.8-10.6); WBC (Perox) 10.52
[2017-03-06] MEDS: MULTIVITAMINS, THERA 1 EACH TAB PO SCH (12:19)
[2017-03-06 12:25] LABS: Glucose,Whole Blood 145 mg/dL (75-99)
--- NOTE | 2017-03-06 15:16 | P.PN ---
Subjective Principal diagnosis: Lower extremity cellulitis This is a 71-year-old male, patient of Dr. Alvarado Patient had initially been to the emergency room a couple a days ago due to having diarrhea. Diagnosed with a gastroenteritis at that time. He was sent home. Patient then noticed that he was starting to have right leg swelling and redness along the new bone. He denies any injury to the leg. He started to have fever and chills. And came into the emergency room for further evaluation and treatment. He also had episodes of shortness of breath. He was concerned about a possible blood clot. D-dimer was checked and elevated at 1.04. CT of the chest was completed and was negative for PE Doppler study of the right leg with negative for DVT. Chest x-ray was also negative. EKG showing a normal sinus rhythm with a right bundle branch block. He was started on Levaquin in the emergency room for right lower extremity cellulitis. White count elevated at 13.2. Objective - Vital Signs Vital signs: Vital Signs Temp 97.8 F 03/06/17 07:00 Pulse 74 03/06/17 07:00 Resp 18 03/06/17 07:00 BP 135/90 03/06/17 07:00 Pulse Ox 97 03/06/17 07:00 Intake & Output 03/05/17 03/06/17 03/06/17 18:59 06:59 18:59 Intake Total 595 Balance 595 Intake: Oral 595 Other: # Voids 3 2 3 # Bowel Movements 1 - Exam In general patient is alert and oriented 3 in no apparent distress HEENT head normocephalic and atraumatic Neck is supple no JVD no goiter no lymphadenopathy Chest exam reveals crackles in both lung singh no wheezing Cardiac exam reveals regular heart sounds no murmurs abdomen is soft nontender no organomegaly Extremity exam reveals no edema no cyanosis or clubbing There is severe erythema in the right lower extremity both in the front and the back extending from the ankle up to the knee area - Labs CBC & Chem 7: 03/06/17 08:17 03/06/17 08:17 Labs: Abnormal Lab Results - Last 24 Hours (Table) 03/05/17 03/05/17 03/05/17 Range/Units 16:58 17:00 17:17 WBC (3.8-10.6) k/uL RBC (4.30-5.90) m/uL Hgb (13.0-17.5) gm/dL Hct (39.0-53.0) % Neutrophils # (1.3-7.7) k/uL Chloride (98-107) mmol/L Carbon Dioxide (22-30) mmol/L BUN (9-20) mg/dL Glucose (74-99) mg/dL POC Glucose (mg/dL) 44 L 48 L 52 L (75-99) mg/dL Calcium (8.4-10.2) mg/dL Total Protein (6.3-8.2) g/dL Albumin (3.5-5.0) g/dL 03/05/17 03/05/17 03/06/17 Range/Units 17:35 20:50 06:51 WBC (3.8-10.6) k/uL RBC (4.30-5.90) m/uL Hgb (13.0-17.5) gm/dL Hct (39.0-53.0) % Neutrophils # (1.3-7.7) k/uL Chloride (98-107) mmol/L Carbon Dioxide (22-30) mmol/L BUN (9-20) mg/dL Glucose (74-99) mg/dL POC Glucose (mg/dL) 63 L 124 H 103 H (75-99) mg/dL Calcium (8.4-10.2) mg/dL Total Protein (6.3-8.2) g/dL Albumin (3.5-5.0) g/dL 03/06/17 03/06/17 03/06/17 Range/Units 08:17 08:17 12:18 WBC 11.2 H (3.8-10.6) k/uL RBC 3.99 L (4.30-5.90) m/uL Hgb 11.0 L (13.0-17.5) gm/dL Hct 33.6 L (39.0-53.0) % Neutrophils # 8.5 H (1.3-7.7) k/uL Chloride 111 H (98-107) mmol/L Carbon Dioxide 19 L (22-30) mmol/L BUN 28 H (9-20) mg/dL Glucose 112 H (74-99) mg/dL POC Glucose (mg/dL) 145 H (75-99) mg/dL Calcium 7.4 L (8.4-10.2) mg/dL Total Protein 6.1 L (6.3-8.2) g/dL Albumin 3.1 L (3.5-5.0) g/dL Assessment and Plan Plan: 1. Right lower extremity cellulitis: Start patient on Ancef 1 g IV every 8 hours. Also add Silvadene cream. Isidra leg with Kerlix and Migel wrap. Keep leg elevated. Check blood culture. Doppler of the right leg negative for DVT 2. Elevated d-dimer on admission CTA was negative for PE Doppler negative for DVT. 3. Shortness of breath on admission. PE has been ruled out. Chest x-ray negative. With known history of atrial fibrillation we'll place patient on cardiac monitoring to monitor for any arrhythmia. He's been on room air satting at 95%. Denies cough 4. History of paroxysmal atrial fibrillation not on anticoagulations due to history of bleeding 5. History of coronary artery disease with. His cardiac stents and bypass surgery 6. Diarrhea check stool for C. diff. recently seen in emergency room and treated as gastroenteritis 7. History of chronic kidney disease 8. 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 Diabetes mellitus resume patient's insulin and add sliding scale coverage 10. Essential hypertension resume lisinopril and metoprolol 11. Hypothyroidism resume Synthroid
[2017-03-06 17:08] LABS: Glucose,Whole Blood 48 mg/dL (75-99)
[2017-03-06 17:55] LABS: Glucose,Whole Blood 60 mg/dL (75-99)
[2017-03-06 17:55] LABS: Glucose,Whole Blood 50 mg/dL (75-99)
[2017-03-06 17:55] LABS: Glucose,Whole Blood 70 mg/dL (75-99)
[2017-03-06] MEDS: DAPTOmycin 500 MG in SODIUM CHLORIDE 0.9% 50 ML IV SCH (18:53)
[2017-03-06 20:52] LABS: Glucose,Whole Blood 131 mg/dL (75-99)
[2017-03-06] MEDS: MELATONIN 5 MG TABLET PO SCH (21:06)
[2017-03-06] MEDS: ATORVASTATIN 40 MG TAB PO SCH (21:06)
[2017-03-06] MEDS: LORATADINE 10 MG TAB PO SCH (21:06)
[2017-03-06] MEDS: ZOLPIDEM 5 MG TAB PO PRN (22:04)
[2017-03-06] MEDS ORDERED: NYSTAT-TRIAMCIN 100,000-0.1 UNIT/GM-% CREAM 30 GM TUBE TOPICAL SCH (23:45)
--- NOTE | 2017-03-06 23:53 | P.CONS ---
History of Present Illness - Reason for Consult Consult date: 03/06/17 - Chief Complaint pain and swelling to the right leg - History of Present Illness Alicia 71-year-old male with history of multiple medical troubles includes diabetes mellitus type 2 Moss[place] well controlled, coronary artery disease , paroxysmal atrial fibrillation and obesity. Presents to Hospital with a several day history of feeling ill. He started with what he thought was the flu. Associated with fever and chill and even some diarrhea. He then developed some significant pain and swelling to the right lower extremity. He was evaluated. Since antibiotic therapy was given. However markedly worsening is now then hospitalized with significant cellulitis of the right lower extremity. With the slow improvement the infectious diseases consultation is been requested. Alicia gentleman relates that is the first event. He has no trauma prior to its onset. He is denying any injury that he can recall to the site. He has not had this particular problem in the past. He does feel that the leg is very uncomfortable. It is swollen and erythematous and has a burning characteristic. 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 His other he was having significant fevers and chills that are improving and feels poorly still at this time. Transfer text Review of Systems HEENT:Denies headache or acute visual change. Denies sinus or mouth discomforts. Denies neck stiffness or pain. Denies significant oral cavity pain. Denies difficulty on swallowing. Lungs: Denies significant shortness of breath, cough, sputum production, or hemoptysis. Cardiovascular: Denies significant shortness of breath, chest pain, chest wall pain, orthopnea, dyspnea on exertion, syncope Gastrointestinal:Denies nausea, vomiting, diarrhea, constipation, hematemesis, melena, hematochezia. No no significant change of bowel habit noticed. Musculoskeletal: denies significant myalgias or arthralgias. No new joint swelling. Denies new back pain. Skin:as per the HPI Neuro: Denies headache or visual change. Denies any new onset weakness or difficulty with ambulation. Denies falls or seizures. Psychiatric:Denies anxiety or depression. Endocrine: Denies significant fatigue, denies significant weight loss or weight gain. Past Medical History Past Medical History: Atrial Fibrillation, Coronary Artery Disease (CAD), Cancer , COPD, Diabetes Mellitus, GERD/Reflux, GI Bleed, Hyperlipidemia, Hypertension, Osteoarthritis (OA), Renal Disease, Thyroid Disorder Additional Past Medical History / Comment(s): thyroid ca, left adrenal gland ca - removed, arhtritis lower back, enlarged heart, migranies,diverticulitis, pinched nerve in diapragmn, pt stated " i have natrually thin blood" History of Any Multi-Drug Resistant Organisms: None Reported Past Surgical History: Cholecystectomy, Coronary Bypass/CABG, Heart Catheterization With Stent, Tonsillectomy Additional Past Surgical History / Comment(s): thyroidectomy adrenal gland removed, 12 heart cath with stents, "open heart to repair hole in heart" nasal sx for deviated septum,uvulectomy, paratyhroidectomy. Past Anesthesia/Blood Transfusion Reactions: No Reported Reaction Additional Past Anesthesia/Blood Transfusion Reaction / Comm: clausterphobia. past blood transfusions without problems. Date of Last Stent Placement:: Past Psychological History: No Psychological Hx Reported Additional Psychological History / Comment(s): . 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 No experience. No international travel. No animal exposures. Adult children who are healthy Smoking Status: Former smoker Past Alcohol Use History: Rare Additional Past Alcohol Use History / Comment(s): smoked for 3 years then quit at age 22. Past Drug Use History: None Reported Additional Drug Use History / Comment(s): in the 1970s smoked marijuana - Past Family History Father Family Medical History: Renal Disease Additional Family Medical History / Comment(s): heart problems Mother Family Medical History: Diabetes Mellitus Medications and Allergies Home Medications and Allergies Comment(s): Current Medications Acetaminophen (Tylenol Tab) 650 mg PO Q6H PRN PRN Reason: Pain Last Admin: 03/05/17 00:52 Dose: 650 mg Hydrocodone Bitart/Acetaminophen ([place] 5-325) 1 each PO Q4HR PRN PRN Reason: Moderate Pain Last Admin: 03/06/17 22:04 Dose: 1 each Atorvastatin Calcium (Lipitor) 40 mg PO HS [facility] Last Admin: 03/06/17 21:06 Dose: 40 mg Calcium Carbonate (Oscal 500+D) 1 each PO BID [facility] Last Admin: 03/06/17 21:06 Dose: 1 each Cholecalciferol (Vitamin D3) 400 unit PO DAILY [facility] Last Admin: 03/06/17 07:41 Dose: 400 unit Cilostazol (Pletal) 100 mg PO BID [facility] Last Admin: 03/06/17 21:06 Dose: 100 mg Clopidogrel Bisulfate (Plavix) 75 mg PO DAILY [facility] Last Admin: 03/06/17 07:42 Dose: 75 mg Duloxetine HCl (Cymbalta) 30 mg PO DAILY [facility] Last Admin: 03/06/17 07:42 Dose: 30 mg Famotidine (Pepcid) 20 mg PO DAILY [facility] Last Admin: 03/06/17 07:42 Dose: 20 mg Furosemide (Lasix) 40 mg PO DAILY [facility] Last Admin: 03/06/17 07:43 Dose: 40 mg Gabapentin (Neurontin) 800 mg PO QID [facility] Last Admin: 03/06/17 21:07 Dose: 800 mg Heparin Sodium (Porcine) (Heparin) 5,000 unit SQ Q12HR [facility] Last Admin: 03/06/17 21:06 Dose: Not Given Daptomycin 500 mg/ Sodium (Chloride) 50 mls @ 100 mls/hr IV Q24H [facility] Last Admin: 03/06/17 18:53 Dose: 100 mls/hr Insulin Human Lispro (Humalog) 0 unit SQ ACHS [facility] PRN Reason: Protocol Last Admin: 03/06/17 21:08 Dose: Not Given Insulin Human NPH (Humulin N) 90 unit SQ BID [facility] Last Admin: 03/06/17 21:08 Dose: 45 unit Insulin Human Regular (Humulin R) 35 unit SQ AC-TID [facility] Last Admin: 03/06/17 17:40 Dose: Not Given Levothyroxine Sodium (Synthroid) 200 mcg PO 0630 [facility] Last Admin: 03/06/17 06:18 Dose: 200 mcg Lisinopril (Zestril) 20 mg PO BID [facility] Last Admin: 03/06/17 21:06 Dose: 20 mg Loratadine (Claritin) 10 mg PO HS [facility] Last Admin: 03/06/17 21:06 Dose: 10 mg Melatonin (Melatonin) 5 mg PO HS [facility] Last Admin: 03/06/17 21:06 Dose: 5 mg Metoprolol Tartrate (Lopressor) 100 mg PO BID [facility] Last Admin: 03/06/17 21:07 Dose: 100 mg Multivitamins (Theragran) 1 each PO DAILY@1200 [facility] Last Admin: 03/06/17 12:19 Dose: 1 each Pantoprazole Sodium (Protonix) 40 mg PO AC-BID [facility] Last Admin: 03/06/17 17:40 Dose: Not Given Ropinirole HCl (Requip) 0.5 mg PO TID [facility] Last Admin: 03/06/17 21:07 Dose: 0.5 mg Silver Sulfadiazine (Silvadene Cream) 1 applic TOPICAL DAILY [facility] Last Admin: 03/06/17 07:43 Dose: 1 applic Zolpidem Tartrate (Ambien) 5 mg PO HS PRN PRN Reason: Insomnia Last Admin: 03/06/17 22:04 Dose: 5 mg Home Medications Medication Instructions Recorded Confirmed Type Cetirizine HCl [Zyrtec] 10 mg PO HS 04/23/15 03/04/17 History Cilostazol [Pletal] 100 mg PO BID 04/23/15 03/04/17 History Clopidogrel [Plavix] 75 mg PO DAILY 04/23/15 03/04/17 History Gabapentin [Neurontin] 800 mg PO QID 04/23/15 03/04/17 History Levothyroxine Sodium [Levoxyl] 200 mcg PO DAILY 04/23/15 03/04/17 History Melatonin 5 mg PO HS 04/23/15 03/04/17 History Vitamin B Complex 1 cap PO DAILY 04/23/15 03/04/17 History Insulin NPH Human Isophane 90 unit SQ BID 04/24/15 03/04/17 History [NovoLIN N] Atorvastatin Calcium [Lipitor] 40 mg PO HS 03/02/17 03/04/17 History Insulin Regular, Human [NovoLIN R] 35 units SQ AC-TID 03/02/17 03/04/17 History Insulin Regular, Human [NovoLIN R] See Protocol SQ PC-TID 03/02/17 03/04/17 History Lisinopril [Zestril] 20 mg PO BID 03/02/17 03/04/17 History Pantoprazole Sodium [Protonix] 20 mg PO BID 03/02/17 03/04/17 History Ubidecarenone [Co Q-10] 100 mg PO DAILY 03/02/17 03/04/17 History metFORMIN HCL [Glucophage] 500 mg PO AC-BID 03/02/17 03/04/17 History rOPINIRole HCL [Requip Xl] 2 mg PO HS 03/02/17 03/04/17 History Ascorbic Acid [Vitamin C] 500 mg PO DAILY 03/04/17 03/04/17 History Calcium Carbonate/Vitamin D3 1 tab PO BID 03/04/17 03/04/17 History [Calcium 600-Vit D3 400 Caplet] Cholecalciferol [Vitamin D3] 400 unit PO DAILY 03/04/17 03/04/17 History DULoxetine HCL [Cymbalta] 30 mg PO DAILY 03/04/17 03/04/17 History Metoprolol Tartrate [Lopressor] 100 mg PO BID 03/04/17 03/04/17 History Multivit-Min/FA/Lycopene/Lut 1 tab PO DAILY 03/04/17 03/04/17 History [Centrum Silver Tablet] [place]-3 Fatty Acids/Fish Oil [Fish 1 cap PO DAILY 03/04/17 03/04/17 History Oil 1,000 mg Softgel] Acetaminophen Tab [Tylenol Tab] 650 mg PO Q6H PRN 03/05/17 03/05/17 History Allergies Allergy/AdvReac Type Severity Reaction Status Date / Time venom-honey bee Allergy Anaphylaxis Verified 03/04/17 12:52 [bee venom (honey bee)] Rkhshgz-[id number]-[id number] Reductase AdvReac Severe Muscle Verified 03/04/17 12:52 Inhibitor Cramping aspirin AdvReac Bleeding Verified 03/04/17 12:52 Ulcers grass pollen-perennial rye, AdvReac Vertigo Verified 03/04/17 12:52 standar [grass poll-perennial rye,std] mold AdvReac Vertigo Verified 03/04/17 12:52 Physical Exam Vitals: Vital Signs Temp Pulse Resp BP BP Pulse Ox 03/06/17 15:00 98.0 F 69 20 142/71 98 03/06/17 07:00 97.8 F 74 18 135/90 97 Intake and Output 03/06/17 03/06/17 03/07/17 14:59 22:59 06:59 Intake Total 595 Balance 595 Intake: Oral 595 Other: # Voids 3 2 71-year-old male who suffers from obesity relates it is more comfortable at a HEENT: Anicteric conjunctiva are pink and moist nasal mucosa grossly intact without significant lesions, there is no thrush. Neck: The neck is supple without significant lymphadenopathy or thyromegaly. Lungs: Symmetric air entry is noted. Few expiratory wheezes are scattered. No coby bronchial sounds are noted. No egophony or dullness. Heart: irregular ith soft S4 There is no significant murmur click or rub, PMI was nondisplaced. Abdomen:obese Positive bowel sounds soft and nontender without palpable masses or organomegaly. There was no guarding or rebound. Extremities: The upper extremities have excellent pulses they are symmetric, no significant petechiae or telangiectasia. No splinter hemorrhages were noted. The left lower extremity has no acute lesions. Right lower extremity shows evidence of the extensive cellulitis on the pretibial surface distal the does traverse proximally especially on the posterior calf to above the knee. There significant very tender lymphadenopathy to the right groin. Left leg without lesions. Right foot shows evidence of the bit of dermatophytosis it's also noted on that foot. No open ulcerations are seen. Neuro: Awake alert oriented to person place and time. There are no acute new gross focal sensory motor deficits. Results CBC & Chem 7: 03/06/17 08:17 03/06/17 08:17 Labs: Abnormal Lab Results - Last 24 Hours (Table) 03/06/17 03/06/17 03/06/17 Range/Units 06:51 08:17 08:17 WBC 11.2 H (3.8-10.6) k/uL RBC 3.99 L (4.30-5.90) m/uL Hgb 11.0 L (13.0-17.5) gm/dL Hct 33.6 L (39.0-53.0) % Neutrophils # 8.5 H (1.3-7.7) k/uL Chloride 111 H (98-107) mmol/L Carbon Dioxide 19 L (22-30) mmol/L BUN 28 H (9-20) mg/dL Glucose 112 H (74-99) mg/dL POC Glucose (mg/dL) 103 H (75-99) mg/dL Calcium 7.4 L (8.4-10.2) mg/dL Total Protein 6.1 L (6.3-8.2) g/dL Albumin 3.1 L (3.5-5.0) g/dL 03/06/17 03/06/17 03/06/17 Range/Units 12:18 17:03 17:18 WBC (3.8-10.6) k/uL RBC (4.30-5.90) m/uL Hgb (13.0-17.5) gm/dL Hct (39.0-53.0) % Neutrophils # (1.3-7.7) k/uL Chloride (98-107) mmol/L Carbon Dioxide (22-30) mmol/L BUN (9-20) mg/dL Glucose (74-99) mg/dL POC Glucose (mg/dL) 145 H 48 L 50 L (75-99) mg/dL Calcium (8.4-10.2) mg/dL Total Protein (6.3-8.2) g/dL Albumin (3.5-5.0) g/dL 03/06/17 03/06/17 03/06/17 Range/Units 17:32 17:52 20:50 WBC (3.8-10.6) k/uL RBC (4.30-5.90) m/uL Hgb (13.0-17.5) gm/dL Hct (39.0-53.0) % Neutrophils # (1.3-7.7) k/uL Chloride (98-107) mmol/L Carbon Dioxide (22-30) mmol/L BUN (9-20) mg/dL Glucose (74-99) mg/dL POC Glucose (mg/dL) 60 L 70 L 131 H (75-99) mg/dL Calcium (8.4-10.2) mg/dL Total Protein (6.3-8.2) g/dL Albumin (3.5-5.0) g/dL Laboratory Results WBC 11.2 k/uL (3.8-10.6) H 03/06/17 08: RBC 3.99 m/uL (4.30-5.90) L 03/06/17 08:17 Hgb 11.0 gm/dL (13.0-17.5) L 03/06/17 08: Hct 33.6 % (39.0-53.0) L 03/06/17 08: MCV 84.3 fL (80.0-100.0) 03/06/17 08: MCH 27.7 pg (25.0-35.0) 03/06/17 08: MCHC 32.8 g/dL (31.0-37.0) 03/06/17 08:17 RDW 14.3 % (11.5-15.5) 03/06/17 08:17 Plt Count 221 k/uL (150-450) 03/06/17 08:17 Neutrophils % 76 % 03/06/17 08:17 Lymphocytes % 11 % 03/06/17 08:17 Monocytes % 8 % 03/06/17 08:17 Eosinophils % 2 % 03/06/17 08: Basophils % 0 % 03/06/17 08:17 Neutrophils # 8.5 k/uL (1.3-7.7) H 03/06/17 08:17 Lymphocytes # 1.3 k/uL (1.0-4.8) 03/06/17 08:17 Monocytes # 0.9 k/uL (0-1.0) 03/06/17 08:17 Eosinophils # 0.2 k/uL (0-0.7) 03/06/17 08: Basophils # 0.0 k/uL (0-0.2) 03/06/17 08:17 PT 10.9 sec (9.0-12.0) 03/04/17 13:34 INR 1.1 (<1.1) 03/04/17 13:34 APTT 27.4 sec (22.0-30.0) 03/04/17 13:34 D-Dimer 1.04 mg/L FEU (<0.60) H 03/04/17 13:34 Sodium 141 mmol/L (137-145) 03/06/17 08:17 Potassium 3.9 mmol/L (3.5-5.1) 03/06/17 08:17 Chloride 111 mmol/L (98-107) H 03/06/17 08:17 Carbon Dioxide 19 mmol/L (22-30) L 03/06/17 08:17 Anion Gap 11 mmol/L 03/06/17 08:17 BUN 28 mg/dL (9-20) H 03/06/17 08:17 Creatinine 1.21 mg/dL (0.66-1.25) 03/06/17 08:17 Est GFR (MDRD) Af Amer >60 (>60 ml/min/1.73 sqM) 03/06/17 08:17 Est GFR (MDRD) Non-Af 59 (>60 ml/min/1.73 sqM) 03/06/17 08:17 Glucose 112 mg/dL (74-99) H 03/06/17 08:17 POC Glucose (mg/dL) 131 mg/dL (75-99) H 03/06/17 20:50 POC Glu [employer] Yuridia Strange 03/06/17 20:[address] Glu mg/dL 163 mg/dL 03/04/17 13:34 Hemoglobin A1c 7.3 % (4.2-6.1) H 03/04/17 13:34 Plasma Lactic Acid Artie 1.4 mmol/L (0.7-2.0) 03/04/17 13:34 Calcium 7.4 mg/dL (8.4-10.2) L 03/06/17 08:17 Total Bilirubin 0.6 mg/dL (0.2-1.3) 03/06/17 08:17 AST 24 U/L (17-59) 03/06/17 08:17 ALT 32 U/L (21-72) 03/06/17 08:17 Alkaline Phosphatase 72 U/L (38-126) 03/06/17 08:17 Total Creatine Kinase 437 U/L (55-170) H 03/04/17 13:34 CK-MB (CK-2) 5.9 ng/mL (0.0-2.4) H* 03/04/17 13:34 CK-MB (CK-2) Rel Index 1.4 03/04/17 13:34 Troponin I <0.012 ng/mL (0.000-0.034) 03/04/17 13:34 Total Protein 6.1 g/dL (6.3-8.2) L 03/06/17 08:17 Albumin 3.1 g/dL (3.5-5.0) L 03/06/17 08:17 Urine Color Yellow 03/04/17 16:06 Urine Appearance Clear (Clear) 03/04/17 16:06 Urine pH 5.5 (5.0-8.0) 03/04/17 16:06 Ur Specific [place] 1.010 (1.001-1.035) 03/04/17 16:06 Urine Protein Trace (Negative) H 03/04/17 16:06 Urine Glucose (UA) Negative (Negative) 03/04/17 16:06 Urine Ketones Negative (Negative) 03/04/17 16:06 Urine Blood Negative (Negative) 03/04/17 16:06 Urine Nitrite Negative (Negative) 03/04/17 16:06 Urine Bilirubin Negative (Negative) 03/04/17 16:06 Urine Urobilinogen <2.0 mg/dL (<2.0) 03/04/17 16:06 Ur Leukocyte Esterase Negative (Negative) 03/04/17 16:06 C. difficile (EIA) Intrp Negative (Negative) 03/05/17 21:35 Microbiology 03/04/17 16:06 Urine,Voided Urine Culture - Final Escherichia coli 03/04/17 13:34 Blood Blood Culture - Preliminary No Growth after 48 hours Assessment and Plan (1) Cellulitis of right leg Narrative/Plan: 71-year-old male who has multiple medical troubles including obesity, diabetes, coronary artery disease who has no significant trauma to the right leg was developed extensive cellulitis to the right distal leg. He has to be and symptoms of for admission of fevers and chills and even diarrhea. All part of his sepsis at the time of admission. With elevation antibiotic therapies feeling slightly better. Continue Silvadene wrap which is applied personally which he finds to be quite soothing. This should be continued at least on a daily basis. Antibiotic therapy will be altered to daptomycin given his very slow response to current antibiotic therapy. Urinalysis is quite benign. Culture potentially has an E. coli. We'll initiate some therapy for that also at this point and will cultures are pending. The leg appears to have a significant streptococcal and possibly staphylococcal component to it. The fungal infection to the foot will be treated with some topical antifungal therapy. The patient and are instructed about the importance of skin care and will important that can be for preventing further troubles in the future. Duplex was negative for deep venous thrombosis. Status: Acute (2) Coronary artery disease Status: Acute (3) Leukocytosis Status: Acute
[2017-03-07] MEDS: NYSTATIN 100,000UNIT/GM CREAM 30 GM TUBE TOPICAL SCH ×3 (00:42→21:23)
[2017-03-07] MEDS: TRIAMCINOLONE 0.1% CREAM 80 GM TUBE TOPICAL SCH ×3 (00:42→21:23)
[2017-03-07] MEDS: HYDROcodone/APAP 5-325MG 1 EACH TAB PO PRN ×5 (02:56→22:39)
[2017-03-07] MEDS: LEVOTHYROXINE 100 MCG TAB PO SCH (06:31)
[2017-03-07 07:31] LABS: Glucose,Whole Blood 127 mg/dL (75-99)
[2017-03-07] MEDS: HEPARIN SODIUM,PORCINE 5,000 UNIT/ML 1 ML VIAL SQ SCH ×2 (08:18→21:21)
[2017-03-07] MEDS: FUROSEMIDE 40 MG TAB PO SCH (08:19)
[2017-03-07] MEDS: CILOSTAZOL 100 MG TAB PO SCH ×2 (08:19→21:22)
[2017-03-07] MEDS: LISINOPRIL 20 MG TAB PO SCH ×2 (08:19→21:22)
[2017-03-07] MEDS: CALCIUM CARB-VIT D 500MG-200UN 1 EACH TAB PO SCH ×2 (08:19→21:22)
[2017-03-07] MEDS: FAMOTIDINE 20 MG TAB PO SCH (08:19)
[2017-03-07] MEDS: METOPROLOL TARTRATE 50 MG TAB PO SCH ×2 (08:19→21:22)
[2017-03-07] MEDS: CHOLECALCIFEROL 400 UNIT TAB PO SCH (08:19)
[2017-03-07] MEDS: CLOPIDOGREL 75 MG TAB PO SCH (08:19)
[2017-03-07] MEDS: PANTOPRAZOLE 40 MG TABLET PO SCH ×2 (08:19→16:03)
[2017-03-07] MEDS: GABAPENTIN 400 MG CAP PO SCH ×4 (08:19→21:22)
[2017-03-07] MEDS: DULoxetine HCL 30 MG CAPSULE.DR PO SCH (08:20)
[2017-03-07] MEDS: INSULIN LISPRO (humaLOG) 300 UNIT/3 ML VIAL SQ SCH ×4 (08:21→21:23)
[2017-03-07] MEDS: INSULIN REGULAR 100 UNIT/ML VIAL SQ SCH ×3 (08:24→18:20)
[2017-03-07] MEDS: INSULIN NPH 300 UNIT/3 ML VIAL SQ SCH ×2 (08:25→21:23)
[2017-03-07 10:44] LABS: Basophils % (A) 0 %; CH 28.3; CHCM 34.7; Eosinophils # (A) 0.2 k/uL (0-0.7); Eosinophils % (A) 2 %; HCT 35.4 % (39.0-53.0); HDW 3.16; HGB 12.2 gm/dL (13.0-17.5); Luc # (Auto) 0.37; Luc % (Auto) 3; Lymphocytes # (A) 1.4 k/uL (1.0-4.8); Lymphocytes % (A) 10 %; MCH 28.2 pg (25.0-35.0); MCHC 34.3 g/dL (31.0-37.0); MCV 82.1 fL (80.0-100.0); Mean Platelet Volume 8.4; Monocytes # (A) 1.1 k/uL (0-1.0); Monocytes % (A) 8 %; Neutrophils % (A) 77 %; RBC 4.31 m/uL (4.30-5.90); RDW 14.3 % (11.5-15.5); WBC (Perox) 12.42
[2017-03-07 11:00] LABS: ALT 39 U/L (21-72); AST 39 U/L (17-59); Alkaline Phosphatase 71 U/L (38-126); Anion Gap 12 mmol/L; Blood Urea Nitrogen 24 mg/dL (9-20); Calcium 7.6 mg/dL (8.4-10.2); Carbon Dioxide 20 mmol/L (22-30); Chloride 108 mmol/L (98-107); Glucose 158 mg/dL (74-99); Non-African American GFR(MDRD) 60 (>60 ml/min/1.73 sqM); Sodium 140 mmol/L (137-145); Total Bilirubin 0.8 mg/dL (0.2-1.3); Total Protein 6.2 g/dL (6.3-8.2)
[2017-03-07 11:21] LABS: Potassium 4.5 mmol/L (3.5-5.1)
--- NOTE | 2017-03-07 11:34 | P.PN ---
Subjective Principal diagnosis: Lower extremity cellulitis This is a 71-year-old male, patient of Dr. Alvarado Patient noticed that he was starting to have right leg swelling and redness along the new bone. He denies any injury to the leg. He started to have fever and chills. he came into the emergency room for further evaluation and treatment. He also had episodes of shortness of breath. He was concerned about a possible blood clot. D-dimer was checked and elevated at 1.04. CT of the chest was completed and was negative for PE Doppler study of the right leg with negative for DVT. Chest x- ray was also negative. EKG showing a normal sinus rhythm with a right bundle branch block. He was started on Levaquin in the emergency room for right lower extremity cellulitis. White count elevated at 13.2. Objective - Vital Signs Vital signs: Vital Signs Temp 99.0 F 03/07/17 07:00 Pulse 81 03/07/17 07:00 Resp 20 03/07/17 07:00 BP 113/67 03/07/17 07:00 Pulse Ox 98 03/07/17 07:00 Intake & Output 03/06/17 03/07/17 03/07/17 18:59 06:59 18:59 Intake Total 595 240 Balance 595 240 Intake: Oral 595 240 Other: # Voids 1 1 - Exam In general patient is alert and oriented 3 in no apparent distress HEENT head normocephalic and atraumatic Neck is supple no JVD no goiter no lymphadenopathy Chest exam reveals crackles in both lung singh no wheezing Cardiac exam reveals regular heart sounds no murmurs abdomen is soft nontender no organomegaly Extremity exam reveals no edema no cyanosis or clubbing There is severe erythema in the right lower extremity both in the front and the back extending from the ankle up to the knee area - Labs CBC & Chem 7: 03/07/17 09:00 03/07/17 09:00 Labs: Abnormal Lab Results - Last 24 Hours (Table) 03/06/17 03/06/17 03/06/17 Range/Units 12:18 17:03 17:18 WBC (3.8-10.6) k/uL Hgb (13.0-17.5) gm/dL Hct (39.0-53.0) % Neutrophils # (1.3-7.7) k/uL Monocytes # (0-1.0) k/uL Chloride (98-107) mmol/L Carbon Dioxide (22-30) mmol/L BUN (9-20) mg/dL Glucose (74-99) mg/dL POC Glucose (mg/dL) 145 H 48 L 50 L (75-99) mg/dL Calcium (8.4-10.2) mg/dL Total Protein (6.3-8.2) g/dL Albumin (3.5-5.0) g/dL 03/06/17 03/06/17 03/06/17 Range/Units 17:32 17:52 20:50 WBC (3.8-10.6) k/uL Hgb (13.0-17.5) gm/dL Hct (39.0-53.0) % Neutrophils # (1.3-7.7) k/uL Monocytes # (0-1.0) k/uL Chloride (98-107) mmol/L Carbon Dioxide (22-30) mmol/L BUN (9-20) mg/dL Glucose (74-99) mg/dL POC Glucose (mg/dL) 60 L 70 L 131 H (75-99) mg/dL Calcium (8.4-10.2) mg/dL Total Protein (6.3-8.2) g/dL Albumin (3.5-5.0) g/dL 03/07/17 03/07/17 03/07/17 Range/Units 07:01 09:00 09:00 WBC 13.0 H (3.8-10.6) k/uL Hgb 12.2 L (13.0-17.5) gm/dL Hct 35.4 L (39.0-53.0) % Neutrophils # 10.0 H (1.3-7.7) k/uL Monocytes # 1.1 H (0-1.0) k/uL Chloride 108 H (98-107) mmol/L Carbon Dioxide 20 L (22-30) mmol/L BUN 24 H (9-20) mg/dL Glucose 158 H (74-99) mg/dL POC Glucose (mg/dL) 127 H (75-99) mg/dL Calcium 7.6 L (8.4-10.2) mg/dL Total Protein 6.2 L (6.3-8.2) g/dL Albumin 3.2 L (3.5-5.0) g/dL Assessment and Plan Plan: 1. Right lower extremity cellulitis Also add Silvadene cream. Isidra leg with Kerlix and Migel wrap. Keep leg elevated. Check blood culture. Doppler of the right leg negative for DVT 2. Elevated d-dimer on admission CTA was negative for PE Doppler negative for DVT. 3. Shortness of breath on admission. PE has been ruled out. Chest x-ray negative. With known history of atrial fibrillation we'll place patient on cardiac monitoring to monitor for any arrhythmia. He's been on room air satting at 95%. Denies cough 4. History of paroxysmal atrial fibrillation not on anticoagulations due to history of bleeding 5. History of coronary artery disease with. His cardiac stents and bypass surgery 6. Diarrhea check stool for C. diff. recently seen in emergency room and treated as gastroenteritis 7. History of chronic kidney disease 8. 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 Diabetes mellitus resume patient's insulin and add sliding scale coverage 10. Essential hypertension resume lisinopril and metoprolol 11. Hypothyroidism resume Synthroid antibiotics were adjusted by Dr. Francis, continue with current management at this time, will follow in a.m.
[2017-03-07 12:15] LABS: Glucose,Whole Blood 215 mg/dL (75-99)
[2017-03-07] MEDS: MULTIVITAMINS, THERA 1 EACH TAB PO SCH (12:28)
--- NOTE | 2017-03-07 14:58 | P.PN ---
Subjective Principal diagnosis: Cellulitis right leg Alicia 71-year-old male with history of multiple medical troubles includes diabetes mellitus type 2 Mossi well controlled, coronary artery disease , paroxysmal atrial fibrillation and obesity. Presents to Hospital with a several day history of feeling ill. He started with what he thought was the flu. Associated with fever and chill and even some diarrhea. He then developed some significant pain and swelling to the right lower extremity. He was evaluated. Since antibiotic therapy was given. However markedly worsening is now then hospitalized with significant cellulitis of the right lower extremity. With the slow improvement the infectious diseases consultation is been requested. Alicia gentleman relates that is the first event. He has no trauma prior to its onset. He is denying any injury that he can recall to the site. He has not had this particular problem in the past. He does feel that the leg is very uncomfortable. It is swollen and erythematous and has a burning characteristic. 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 His other he was having significant fevers and chills that are improving and feels poorly still at this time. Slightly better today. Is under some increased depth of the erythema to the limb but his pain is improved. Objective - Vital Signs Vital signs: Vital Signs Temp 99.0 F 03/07/17 07:00 Pulse 81 03/07/17 07:00 Resp 20 03/07/17 07:00 BP 113/67 03/07/17 07:00 Pulse Ox 98 03/07/17 07:00 Intake & Output 03/06/17 03/07/17 03/07/17 18:59 06:59 18:59 Intake Total 595 720 Balance 595 720 Intake: Oral 595 720 Other: # Voids 1 1 2 # Bowel Movements 1 - Exam 71-year-old male who suffers from obesity relates it is more comfortable at a HEENT: Anicteric conjunctiva are pink and moist nasal mucosa grossly intact without significant lesions, there is no thrush. Neck: The neck is supple without significant lymphadenopathy or thyromegaly. Lungs: Symmetric air entry is noted. Few expiratory wheezes are scattered. No coby bronchial sounds are noted. No egophony or dullness. Heart: irregular ith soft S4 There is no significant murmur click or rub, PMI was nondisplaced. Abdomen:obese Positive bowel sounds soft and nontender without palpable masses or organomegaly. There was no guarding or rebound. Extremities: The upper extremities have excellent pulses they are symmetric, no significant petechiae or telangiectasia. No splinter hemorrhages were noted. The left lower extremity has no acute lesions. Right lower extremity shows evidence of the extensive cellulitis on the pretibial surface distal the does traverse proximally especially on the posterior calf to above the knee. The coloration has deepened a bit but no ulceration is seen There significant very tender lymphadenopathy to the right groin. Left leg without lesions. Right foot shows evidence of the bit of dermatophytosis it's also noted on that foot. No open ulcerations are seen. Neuro: Awake alert oriented to person place and time. There are no acute new gross focal sensory motor deficits. - Labs CBC & Chem 7: 03/07/17 09:00 03/07/17 09:00 Labs: Abnormal Lab Results - Last 24 Hours (Table) 03/06/17 03/06/17 03/06/17 Range/Units 17:03 17:18 17:32 WBC (3.8-10.6) k/uL Hgb (13.0-17.5) gm/dL Hct (39.0-53.0) % Neutrophils # (1.3-7.7) k/uL Monocytes # (0-1.0) k/uL Chloride (98-107) mmol/L Carbon Dioxide (22-30) mmol/L BUN (9-20) mg/dL Glucose (74-99) mg/dL POC Glucose (mg/dL) 48 L 50 L 60 L (75-99) mg/dL Calcium (8.4-10.2) mg/dL Total Protein (6.3-8.2) g/dL Albumin (3.5-5.0) g/dL 03/06/17 03/06/17 03/07/17 Range/Units 17:52 20:50 07:01 WBC (3.8-10.6) k/uL Hgb (13.0-17.5) gm/dL Hct (39.0-53.0) % Neutrophils # (1.3-7.7) k/uL Monocytes # (0-1.0) k/uL Chloride (98-107) mmol/L Carbon Dioxide (22-30) mmol/L BUN (9-20) mg/dL Glucose (74-99) mg/dL POC Glucose (mg/dL) 70 L 131 H 127 H (75-99) mg/dL Calcium (8.4-10.2) mg/dL Total Protein (6.3-8.2) g/dL Albumin (3.5-5.0) g/dL 03/07/17 03/07/17 03/07/17 Range/Units 09:00 09:00 11:56 WBC 13.0 H (3.8-10.6) k/uL Hgb 12.2 L (13.0-17.5) gm/dL Hct 35.4 L (39.0-53.0) % Neutrophils # 10.0 H (1.3-7.7) k/uL Monocytes # 1.1 H (0-1.0) k/uL Chloride 108 H (98-107) mmol/L Carbon Dioxide 20 L (22-30) mmol/L BUN 24 H (9-20) mg/dL Glucose 158 H (74-99) mg/dL POC Glucose (mg/dL) 215 H (75-99) mg/dL Calcium 7.6 L (8.4-10.2) mg/dL Total Protein 6.2 L (6.3-8.2) g/dL Albumin 3.2 L (3.5-5.0) g/dL Laboratory Results WBC 13.0 k/uL (3.8-10.6) H 03/07/17 09:00 RBC 4.31 m/uL (4.30-5.90) 03/07/17 09:00 Hgb 12.2 gm/dL (13.0-17.5) L 03/07/17 09:00 Hct 35.4 % (39.0-53.0) L 03/07/17 09:00 MCV 82.1 fL (80.0-100.0) 03/07/17 09:00 MCH 28.2 pg (25.0-35.0) 03/07/17 09:00 MCHC 34.3 g/dL (31.0-37.0) 03/07/17 09:00 RDW 14.3 % (11.5-15.5) 03/07/17 09:00 Plt Count 238 k/uL (150-450) 03/07/17 09:00 Neutrophils % 77 % 03/07/17 09:00 Lymphocytes % 10 % 03/07/17 09:00 Monocytes % 8 % 03/07/17 09:00 Eosinophils % 2 % 03/07/17 09:00 Basophils % 0 % 03/07/17 09:00 Neutrophils # 10.0 k/uL (1.3-7.7) H 03/07/17 09:00 Lymphocytes # 1.4 k/uL (1.0-4.8) 03/07/17 09:00 Monocytes # 1.1 k/uL (0-1.0) H 03/07/17 09:00 Eosinophils # 0.2 k/uL (0-0.7) 03/07/17 09:00 Basophils # 0.0 k/uL (0-0.2) 03/07/17 09:00 PT 10.9 sec (9.0-12.0) 03/04/17 13:34 INR 1.1 (<1.1) 03/04/17 13:34 APTT 27.4 sec (22.0-30.0) 03/04/17 13:34 D-Dimer 1.04 mg/L FEU (<0.60) H 03/04/17 13:34 Sodium 140 mmol/L (137-145) 03/07/17 09:00 Potassium 4.5 mmol/L (3.5-5.1) 03/07/17 09:00 Chloride 108 mmol/L (98-107) H 03/07/17 09:00 Carbon Dioxide 20 mmol/L (22-30) L 03/07/17 09:00 Anion Gap 12 mmol/L 03/07/17 09:00 BUN 24 mg/dL (9-20) H 03/07/17 09:00 Creatinine 1.20 mg/dL (0.66-1.25) 03/07/17 09:00 Est GFR (MDRD) Af Amer >60 (>60 ml/min/1.73 sqM) 03/07/17 09:00 Est GFR (MDRD) Non-Af 60 (>60 ml/min/1.73 sqM) 03/07/17 09:00 Glucose 158 mg/dL (74-99) H 03/07/17 09:00 POC Glucose (mg/dL) 215 mg/dL (75-99) H 03/07/17 11:56 POC Glu Licensed Weigher ID Katina Nicholson 03/07/17 11:[address] Glu mg/dL 163 mg/dL 03/04/17 13:34 Hemoglobin A1c 7.3 % (4.2-6.1) H 03/04/17 13:34 Plasma Lactic Acid Artie 1.4 mmol/L (0.7-2.0) 03/04/17 13:34 Calcium 7.6 mg/dL (8.4-10.2) L 03/07/17 09:00 Total Bilirubin 0.8 mg/dL (0.2-1.3) 03/07/17 09:00 AST 39 U/L (17-59) 03/07/17 09:00 ALT 39 U/L (21-72) 03/07/17 09:00 Alkaline Phosphatase 71 U/L (38-126) 03/07/17 09:00 Total Creatine Kinase 437 U/L (55-170) H 03/04/17 13:34 CK-MB (CK-2) 5.9 ng/mL (0.0-2.4) H* 03/04/17 13:34 CK-MB (CK-2) Rel Index 1.4 03/04/17 13:34 Troponin I <0.012 ng/mL (0.000-0.034) 03/04/17 13:34 Total Protein 6.2 g/dL (6.3-8.2) L 03/07/17 09:00 Albumin 3.2 g/dL (3.5-5.0) L 03/07/17 09:00 Urine Color Yellow 03/04/17 16:06 Urine Appearance Clear (Clear) 03/04/17 16:06 Urine pH 5.5 (5.0-8.0) 03/04/17 16:06 Ur Specific Start 1.010 (1.001-1.035) 03/04/17 16:06 Urine Protein Trace (Negative) H 03/04/17 16:06 Urine Glucose (UA) Negative (Negative) 03/04/17 16:06 Urine Ketones Negative (Negative) 03/04/17 16:06 Urine Blood Negative (Negative) 03/04/17 16:06 Urine Nitrite Negative (Negative) 03/04/17 16:06 Urine Bilirubin Negative (Negative) 03/04/17 16:06 Urine Urobilinogen <2.0 mg/dL (<2.0) 03/04/17 16:06 Ur Leukocyte Esterase Negative (Negative) 03/04/17 16:06 C. difficile (EIA) Intrp Negative (Negative) 03/05/17 21:35 Microbiology 03/04/17 16:06 Urine,Voided Urine Culture - Final Escherichia coli 03/04/17 13:34 Blood Blood Culture - Preliminary No Growth after 48 hours Assessment and Plan (1) Cellulitis of right leg Narrative/Plan: 71-year-old male who has multiple medical troubles including obesity, diabetes, coronary artery disease who has no significant trauma to the right leg was developed extensive cellulitis to the right distal leg. He has to be and symptoms of for admission of fevers and chills and even diarrhea. All part of his sepsis at the time of admission. With elevation antibiotic therapies feeling slightly better. Continue Silvadene wrap which is applied personally which he finds to be quite soothing. This should be continued at least on a daily basis. Antibiotic therapy will be altered to daptomycin given his very slow response to current antibiotic therapy. Urinalysis is quite benign. Culture potentially has an E. coli. We'll initiate some therapy for that also at this point and will cultures are pending. The leg appears to have a significant streptococcal and possibly staphylococcal component to it. Improvement is noted today The fungal infection to the foot will be treated with some topical antifungal therapy. The patient and are instructed about the importance of skin care and will important that can be for preventing further troubles in the future. Duplex was negative for deep venous thrombosis. Status: Acute (2) Coronary artery disease Status: Acute (3) Leukocytosis Status: Acute
[2017-03-07 17:19] LABS: Glucose,Whole Blood 153 mg/dL (75-99)
[2017-03-07] MEDS: DAPTOmycin 500 MG in SODIUM CHLORIDE 0.9% 50 ML IV SCH (18:22)
[2017-03-07] MEDS: ATORVASTATIN 40 MG TAB PO SCH (21:22)
[2017-03-07] MEDS: MELATONIN 5 MG TABLET PO SCH (21:22)
[2017-03-07] MEDS: LORATADINE 10 MG TAB PO SCH (21:22)
[2017-03-07 21:25] LABS: Glucose,Whole Blood 131 mg/dL (75-99)
[2017-03-07] MEDS: ZOLPIDEM 5 MG TAB PO PRN (22:39)
[2017-03-08] MEDS: LEVOTHYROXINE 100 MCG TAB PO SCH (06:33)
[2017-03-08 07:29] LABS: Glucose,Whole Blood 117 mg/dL (75-99)
[2017-03-08] MEDS: HEPARIN SODIUM,PORCINE 5,000 UNIT/ML 1 ML VIAL SQ SCH ×2 (07:38→22:11)
[2017-03-08] MEDS: INSULIN LISPRO (humaLOG) 300 UNIT/3 ML VIAL SQ SCH ×4 (07:39→22:09)
[2017-03-08] MEDS: INSULIN REGULAR 100 UNIT/ML VIAL SQ SCH ×3 (07:40→18:01)
[2017-03-08] MEDS: CLOPIDOGREL 75 MG TAB PO SCH (07:41)
[2017-03-08] MEDS: FAMOTIDINE 20 MG TAB PO SCH (07:41)
[2017-03-08] MEDS: CALCIUM CARB-VIT D 500MG-200UN 1 EACH TAB PO SCH ×2 (07:41→22:10)
[2017-03-08] MEDS: CILOSTAZOL 100 MG TAB PO SCH ×2 (07:41→22:11)
[2017-03-08] MEDS: PANTOPRAZOLE 40 MG TABLET PO SCH ×2 (07:41→18:01)
[2017-03-08] MEDS: DULoxetine HCL 30 MG CAPSULE.DR PO SCH (07:41)
[2017-03-08] MEDS: CHOLECALCIFEROL 400 UNIT TAB PO SCH (07:41)
[2017-03-08] MEDS: NYSTATIN 100,000UNIT/GM CREAM 30 GM TUBE TOPICAL SCH ×2 (07:42→22:25)
[2017-03-08] MEDS: INSULIN NPH 300 UNIT/3 ML VIAL SQ SCH ×2 (07:42→22:05)
[2017-03-08] MEDS: METOPROLOL TARTRATE 50 MG TAB PO SCH ×2 (07:42→22:10)
[2017-03-08] MEDS: GABAPENTIN 400 MG CAP PO SCH ×4 (07:42→22:09)
[2017-03-08] MEDS: FUROSEMIDE 40 MG TAB PO SCH (07:42)
[2017-03-08] MEDS: LISINOPRIL 20 MG TAB PO SCH ×2 (07:42→22:10)
[2017-03-08] MEDS: TRIAMCINOLONE 0.1% CREAM 80 GM TUBE TOPICAL SCH ×2 (07:42→22:24)
[2017-03-08] MEDS: HYDROcodone/APAP 5-325MG 1 EACH TAB PO PRN ×4 (07:48→22:20)
[2017-03-08 08:18] LABS: Basophils % (A) 0 %; CH 27.8; CHCM 32.8; Eosinophils # (A) 0.2 k/uL (0-0.7); Eosinophils % (A) 2 %; HCT 37.2 % (39.0-53.0); HGB 11.9 gm/dL (13.0-17.5); Luc # (Auto) 0.31; Luc % (Auto) 2; Lymphocytes # (A) 1.5 k/uL (1.0-4.8); Lymphocytes % (A) 11 %; MCH 27.3 pg (25.0-35.0); MCHC 32.1 g/dL (31.0-37.0); MCV 85.3 fL (80.0-100.0); Mean Platelet Volume 6.9; Monocytes # (A) 0.9 k/uL (0-1.0); Monocytes % (A) 6 %; Neutrophils # (A) 11.1 k/uL (1.3-7.7); Neutrophils % (A) 79 %; RBC 4.37 m/uL (4.30-5.90); RDW 14.3 % (11.5-15.5); WBC (Perox) 14.73
[2017-03-08 08:45] LABS: ALT 33 U/L (21-72); AST 30 U/L (17-59); Alkaline Phosphatase 88 U/L (38-126); Anion Gap 13 mmol/L; Blood Urea Nitrogen 25 mg/dL (9-20); Calcium 8.1 mg/dL (8.4-10.2); Carbon Dioxide 25 mmol/L (22-30); Chloride 104 mmol/L (98-107); Glucose 95 mg/dL (74-99); Non-African American GFR(MDRD) 59 (>60 ml/min/1.73 sqM); Potassium 3.9 mmol/L (3.5-5.1); Sodium 142 mmol/L (137-145); Total Bilirubin 0.7 mg/dL (0.2-1.3); Total Protein 6.9 g/dL (6.3-8.2)
[2017-03-08 11:44] LABS: Glucose,Whole Blood 179 mg/dL (75-99)
[2017-03-08] MEDS: MULTIVITAMINS, THERA 1 EACH TAB PO SCH (12:37)
--- NOTE | 2017-03-08 14:38 | P.PN ---
Subjective lower extremity cellulitis This is a 71-year-old male, patient of Dr. Alvarado Patient noticed that he was starting to have right leg swelling and redness along the new bone. He denies any injury to the leg. He started to have fever and chills. he came into the emergency room for further evaluation and treatment. He also had episodes of shortness of breath. He was concerned about a possible blood clot. D-dimer was checked and elevated at 1.04. CT of the chest was completed and was negative for PE Doppler study of the right leg with negative for DVT. Chest x- ray was also negative. EKG showing a normal sinus rhythm with a right bundle branch block. He was started on Levaquin in the emergency room for right lower extremity cellulitis. 03/08/2017 patient has had slight improvement in the right lower extremity cellulitis. However, patient is still having significant redness and swelling. White count did jump up to 14. Infectious disease is following. They did adjust antibiotics to daptomycin and Rocephin patient also being treated for UTI with E. coli growing in the culture. Patient denies any chest pain or shortness of breath. Denies any nausea or vomiting. Diarrhea has resolved. He had a solid bowel movement today. Denies any burning with urination. Objective - Vital Signs Vital signs: Vital Signs Temp 97.8 F 03/08/17 07:00 Pulse 71 03/08/17 07:00 Resp 16 03/08/17 07:00 BP 155/71 03/08/17 07:00 Pulse Ox 97 03/08/17 07:00 Intake & Output 03/07/17 03/08/17 03/08/17 18:59 06:59 18:59 Intake Total 1200 100 Balance 1200 100 Intake: Oral 1200 100 Other: # Voids 2 1 3 # Bowel Movements 1 - Exam Head normocephalic Neck supple Lungs clear to auscultation bilaterally no wheezing or crackles Heart regular rate and rhythm S1-S2, no rub or gallop Abdomen is soft nontender nondistended positive bowel sounds no hepatosplenomegaly Extremities right leg with erythema along the tibial and calf area and into the ankle. Also significant amount of swelling. Tender with palpation. Neuro alert and orientated to 3 - Labs CBC & Chem 7: 03/08/17 07:52 03/08/17 07:52 Labs: Abnormal Lab Results - Last 24 Hours (Table) 03/07/17 03/07/17 03/08/17 Range/Units 17:02 21:16 07:27 WBC (3.8-10.6) k/uL Hgb (13.0-17.5) gm/dL Hct (39.0-53.0) % Neutrophils # (1.3-7.7) k/uL BUN (9-20) mg/dL POC Glucose (mg/dL) 153 H 131 H 117 H (75-99) mg/dL Calcium (8.4-10.2) mg/dL 03/08/17 03/08/17 03/08/17 Range/Units 07:52 07:52 11:42 WBC 14.0 H (3.8-10.6) k/uL Hgb 11.9 L (13.0-17.5) gm/dL Hct 37.2 L (39.0-53.0) % Neutrophils # 11.1 H (1.3-7.7) k/uL BUN 25 H (9-20) mg/dL POC Glucose (mg/dL) 179 H (75-99) mg/dL Calcium 8.1 L (8.4-10.2) mg/dL Assessment and Plan Plan: 1. Right lower extremity cellulitis: Followed by infectious disease. Antibiotics were adjusted and patient currently on daptomycin. Continue Silvadene and keeping legs elevated. Doppler of the right leg negative for DVT 2. Elevated d-dimer on admission CTA was negative for PE Doppler negative for DVT. 3. Shortness of breath on admission. PE has been ruled out. Chest x-ray negative. With known history of atrial fibrillation we'll place patient on cardiac monitoring to monitor for any arrhythmia. He's been on room air satting at 95%. Denies cough. Telemetry monitoring was discontinued over the weekend he remained in normal sinus rhythm 4. History of paroxysmal atrial fibrillation not on anticoagulations due to history of bleeding 5. History of coronary artery disease with. His cardiac stents and bypass surgery 6. Diarrhea Jose resolved. Stool for C. diff negative. recently seen in emergency room and treated as gastroenteritis 7. History of chronic kidney disease 8. 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 Diabetes mellitus resume patient's insulin and add sliding scale coverage 10. Essential hypertension resume lisinopril and metoprolol 11. Hypothyroidism resume Synthroid 12. UTI: Urine culture growing E. coli. Continue Rocephin 13. Leukocytosis white count up to 14. Continue to monitor. Infectious disease following. Blood culture remains negative. Repeat CBC in a.m. Prophylaxis subcu heparin and GI prophylaxis Pepcid
[2017-03-08 17:00] LABS: Glucose,Whole Blood 190 mg/dL (75-99)
[2017-03-08] MEDS: DAPTOmycin 500 MG in SODIUM CHLORIDE 0.9% 50 ML IV SCH (18:02)
[2017-03-08 20:56] LABS: Glucose,Whole Blood 146 mg/dL (75-99)
[2017-03-08] MEDS: ATORVASTATIN 40 MG TAB PO SCH (22:10)
[2017-03-08] MEDS: MELATONIN 5 MG TABLET PO SCH (22:10)
[2017-03-08] MEDS: LORATADINE 10 MG TAB PO SCH (22:11)
[2017-03-08] MEDS: ZOLPIDEM 5 MG TAB PO PRN (22:23)
--- NOTE | 2017-03-08 23:35 | P.PN ---
Subjective Principal diagnosis: Cellulitis right leg Alicia 71-year-old male with history of multiple medical troubles includes diabetes mellitus type 2 Mossi well controlled, coronary artery disease , paroxysmal atrial fibrillation and obesity. Presents to Hospital with a several day history of feeling ill. He started with what he thought was the flu. Associated with fever and chill and even some diarrhea. He then developed some significant pain and swelling to the right lower extremity. He was evaluated. Since antibiotic therapy was given. However markedly worsening is now then hospitalized with significant cellulitis of the right lower extremity. With the slow improvement the infectious diseases consultation is been requested. Alicia gentleman relates that is the first event. He has no trauma prior to its onset. He is denying any injury that he can recall to the site. He has not had this particular problem in the past. He does feel that the leg is very uncomfortable. It is swollen and erythematous and has a burning characteristic. 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 His other he was having significant fevers and chills that are improving and feels poorly still at this time. Much better today. Objective - Vital Signs Vital signs: Vital Signs Temp 96.7 F L 03/08/17 15:00 Pulse 74 03/08/17 15:00 Resp 16 03/08/17 15:00 BP 146/77 03/08/17 15:00 Pulse Ox 95 03/08/17 15:00 Intake & Output 03/08/17 03/08/17 03/09/17 06:59 18:59 06:59 Intake Total 100 Balance 100 Intake: Oral 100 Other: # Voids 1 3 - Exam 71-year-old male who suffers from obesity relates it is more comfortable at a HEENT: Anicteric conjunctiva are pink and moist nasal mucosa grossly intact without significant lesions, there is no thrush. Neck: The neck is supple without significant lymphadenopathy or thyromegaly. Lungs: Symmetric air entry is noted. Few expiratory wheezes are scattered. No coby bronchial sounds are noted. No egophony or dullness. Heart: irregular ith soft S4 There is no significant murmur click or rub, PMI was nondisplaced. Abdomen:obese Positive bowel sounds soft and nontender without palpable masses or organomegaly. There was no guarding or rebound. Extremities: The upper extremities have excellent pulses they are symmetric, no significant petechiae or telangiectasia. No splinter hemorrhages were noted. The left lower extremity has no acute lesions. Right lower extremity shows evidence of the extensive cellulitis on the pretibial surface distal the does traverse proximally especially on the posterior calf to above the knee. The coloration Has improved. There is evidence of minimal blister formation at the medial aspect of the ankle. No drainage is seen. The site is nontender. The extensive tender lymphadenopathy to the right groin has resolved. Left leg without lesions. Right foot shows evidence of the bit of dermatophytosis it's also noted on that foot. No open ulcerations are seen. Neuro: Awake alert oriented to person place and time. There are no acute new gross focal sensory motor deficits. - Labs CBC & Chem 7: 03/08/17 07:52 03/08/17 07:52 Labs: Abnormal Lab Results - Last 24 Hours (Table) 03/08/17 03/08/17 03/08/17 Range/Units 07:27 07:52 07:52 WBC 14.0 H (3.8-10.6) k/uL Hgb 11.9 L (13.0-17.5) gm/dL Hct 37.2 L (39.0-53.0) % Neutrophils # 11.1 H (1.3-7.7) k/uL BUN 25 H (9-20) mg/dL POC Glucose (mg/dL) 117 H (75-99) mg/dL Calcium 8.1 L (8.4-10.2) mg/dL 03/08/17 03/08/17 03/08/17 Range/Units 11:42 16:55 20:55 WBC (3.8-10.6) k/uL Hgb (13.0-17.5) gm/dL Hct (39.0-53.0) % Neutrophils # (1.3-7.7) k/uL BUN (9-20) mg/dL POC Glucose (mg/dL) 179 H 190 H 146 H (75-99) mg/dL Calcium (8.4-10.2) mg/dL Assessment and Plan (1) Cellulitis of right leg Status: Acute (2) Coronary artery disease Status: Acute (3) Leukocytosis Status: Acute
[2017-03-09] MEDS: LEVOTHYROXINE 100 MCG TAB PO SCH (06:30)
[2017-03-09] MEDS: HYDROcodone/APAP 5-325MG 1 EACH TAB PO PRN ×3 (06:31→20:23)
[2017-03-09 07:33] LABS: Glucose,Whole Blood 153 mg/dL (75-99)
[2017-03-09] MEDS: INSULIN LISPRO (humaLOG) 300 UNIT/3 ML VIAL SQ SCH ×4 (08:00→20:34)
[2017-03-09] MEDS: INSULIN REGULAR 100 UNIT/ML VIAL SQ SCH ×3 (08:01→18:03)
[2017-03-09] MEDS: PANTOPRAZOLE 40 MG TABLET PO SCH ×2 (08:02→18:53)
[2017-03-09] MEDS: CALCIUM CARB-VIT D 500MG-200UN 1 EACH TAB PO SCH ×2 (08:02→20:25)
[2017-03-09] MEDS: GABAPENTIN 400 MG CAP PO SCH ×4 (08:03→20:25)
[2017-03-09] MEDS: CHOLECALCIFEROL 400 UNIT TAB PO SCH (08:03)
[2017-03-09] MEDS: CLOPIDOGREL 75 MG TAB PO SCH (08:03)
[2017-03-09] MEDS: FUROSEMIDE 40 MG TAB PO SCH (08:03)
[2017-03-09] MEDS: DULoxetine HCL 30 MG CAPSULE.DR PO SCH (08:03)
[2017-03-09] MEDS: CILOSTAZOL 100 MG TAB PO SCH ×2 (08:03→20:27)
[2017-03-09] MEDS: INSULIN NPH 300 UNIT/3 ML VIAL SQ SCH ×2 (08:04→20:33)
[2017-03-09] MEDS: HEPARIN SODIUM,PORCINE 5,000 UNIT/ML 1 ML VIAL SQ SCH ×2 (08:04→20:28)
[2017-03-09] MEDS: METOPROLOL TARTRATE 50 MG TAB PO SCH ×2 (08:05→20:26)
[2017-03-09] MEDS: LISINOPRIL 20 MG TAB PO SCH ×2 (08:05→20:26)
[2017-03-09 09:22] LABS: Basophils % (A) 0 %; CH 28.1; CHCM 33.2; Eosinophils # (A) 0.2 k/uL (0-0.7); Eosinophils % (A) 1 %; HCT 35.3 % (39.0-53.0); HDW 3.01; HGB 11.4 gm/dL (13.0-17.5); Luc # (Auto) 0.23; Luc % (Auto) 2; Lymphocytes # (A) 1.4 k/uL (1.0-4.8); Lymphocytes % (A) 10 %; MCH 27.6 pg (25.0-35.0); MCHC 32.4 g/dL (31.0-37.0); MCV 85.2 fL (80.0-100.0); Mean Platelet Volume 6.9; Monocytes # (A) 0.6 k/uL (0-1.0); Monocytes % (A) 5 %; Neutrophils # (A) 11.1 k/uL (1.3-7.7); Neutrophils % (A) 82 %; RBC 4.14 m/uL (4.30-5.90); RDW 14.3 % (11.5-15.5); WBC 13.5 k/uL (3.8-10.6); WBC (Perox) 14.58
[2017-03-09] MEDS: NYSTATIN 100,000UNIT/GM CREAM 30 GM TUBE TOPICAL SCH ×2 (10:06→20:32)
[2017-03-09] MEDS: TRIAMCINOLONE 0.1% CREAM 80 GM TUBE TOPICAL SCH ×2 (10:07→20:33)
[2017-03-09 10:38] LABS: ALT 38 U/L (21-72); AST 28 U/L (17-59); Alkaline Phosphatase 84 U/L (38-126); Anion Gap 11 mmol/L; Blood Urea Nitrogen 25 mg/dL (9-20); Calcium 8.3 mg/dL (8.4-10.2); Carbon Dioxide 25 mmol/L (22-30); Chloride 102 mmol/L (98-107); Glucose 215 mg/dL (74-99); Non-African American GFR(MDRD) 60 (>60 ml/min/1.73 sqM); Potassium 4.6 mmol/L (3.5-5.1); Sodium 138 mmol/L (137-145); Total Bilirubin 0.7 mg/dL (0.2-1.3); Total Protein 6.4 g/dL (6.3-8.2)
[2017-03-09 11:48] LABS: Glucose,Whole Blood 274 mg/dL (75-99)
[2017-03-09] MEDS: MULTIVITAMINS, THERA 1 EACH TAB PO SCH (13:04)
--- NOTE | 2017-03-09 14:51 | P.PN ---
Subjective Patient is doing fairly well today. No events overnight. Both lower extremities are wrapped up to the knees. Objective - Vital Signs Vital signs: Vital Signs Temp 97.5 F L 03/09/17 07:00 Pulse 78 03/09/17 07:00 Resp 14 03/09/17 07:00 BP 160/77 03/09/17 07:00 Pulse Ox 97 03/09/17 07:00 Intake & Output 03/08/17 03/09/17 03/09/17 18:59 06:59 18:59 Other: # Voids 3 0 3 # Bowel Movements 0 - Exam General: The patient is awake and alert, in no distress Eye: there is normal conjunctiva bilaterally. Neck: The neck is supple, there is no JVD. Cardiovascular: Normal S1-S2, no S3-S4, no murmurs. Respiratory: Lungs clear to auscultation bilaterally Gastrointestinal: Abdomen is soft, nontender Neurological:. Speech is normal. Skin: Skin is warm and dry - Labs CBC & Chem 7: 03/09/17 08:30 03/09/17 08:30 Labs: Abnormal Lab Results - Last 24 Hours (Table) 03/08/17 03/08/17 03/09/17 Range/Units 16:55 20:55 07:31 WBC (3.8-10.6) k/uL RBC (4.30-5.90) m/uL Hgb (13.0-17.5) gm/dL Hct (39.0-53.0) % Neutrophils # (1.3-7.7) k/uL BUN (9-20) mg/dL Glucose (74-99) mg/dL POC Glucose (mg/dL) 190 H 146 H 153 H (75-99) mg/dL Calcium (8.4-10.2) mg/dL Albumin (3.5-5.0) g/dL 03/09/17 03/09/17 03/09/17 Range/Units 08:30 08:30 11:46 WBC 13.5 H (3.8-10.6) k/uL RBC 4.14 L (4.30-5.90) m/uL Hgb 11.4 L (13.0-17.5) gm/dL Hct 35.3 L (39.0-53.0) % Neutrophils # 11.1 H (1.3-7.7) k/uL BUN 25 H (9-20) mg/dL Glucose 215 H (74-99) mg/dL POC Glucose (mg/dL) 274 H (75-99) mg/dL Calcium 8.3 L (8.4-10.2) mg/dL Albumin 3.3 L (3.5-5.0) g/dL Assessment and Plan Plan: 1. Right lower extremity cellulitis: Followed by infectious disease. Antibiotics were adjusted and patient currently on daptomycin. Continue Silvadene and keeping legs elevated. Doppler of the right leg negative for DVT 2. Elevated d-dimer on admission CTA was negative for PE Doppler negative for DVT. 3. Shortness of breath on admission now resolved. PE has been ruled out. Chest x-ray negative. 4. History of paroxysmal atrial fibrillation not on anticoagulations due to history of bleeding 5. History of coronary artery disease with. His cardiac stents and bypass surgery 6. Diarrhea resolved. Stool for C. diff negative. recently seen in emergency room and treated as gastroenteritis 7. History of chronic kidney disease 8. Hypothyroidism resume Synthroid 9. Diabetes mellitus resume patient's insulin and add sliding scale coverage 10. Essential hypertension resume lisinopril and metoprolol Plan for discharge tomorrow.
[2017-03-09 16:59] LABS: Glucose,Whole Blood 165 mg/dL (75-99)
[2017-03-09] MEDS: DAPTOmycin 500 MG in SODIUM CHLORIDE 0.9% 50 ML IV SCH (18:26)
[2017-03-09] MEDS: MELATONIN 5 MG TABLET PO SCH (20:25)
[2017-03-09] MEDS: LORATADINE 10 MG TAB PO SCH (20:26)
[2017-03-09] MEDS: ATORVASTATIN 40 MG TAB PO SCH (20:26)
[2017-03-09 20:42] LABS: Glucose,Whole Blood 110 mg/dL (75-99)
[2017-03-09] MEDS: ZOLPIDEM 5 MG TAB PO PRN (22:44)
--- NOTE | 2017-03-09 22:52 | P.PN ---
Subjective Principal diagnosis: Cellulitis right leg Alicia 71-year-old male with history of multiple medical troubles includes diabetes mellitus type 2 Moss[place] well controlled, coronary artery disease , paroxysmal atrial fibrillation and obesity. Presents to Hospital with a several day history of feeling ill. He started with what he thought was the flu. Associated with fever and chill and even some diarrhea. He then developed some significant pain and swelling to the right lower extremity. He was evaluated. Since antibiotic therapy was given. However markedly worsening is now then hospitalized with significant cellulitis of the right lower extremity. With the slow improvement the infectious diseases consultation is been requested. Alicia gentleman relates that is the first event. He has no trauma prior to its onset. He is denying any injury that he can recall to the site. He has not had this particular problem in the past. He does feel that the leg is still uncomfortable. It is swollen and erythematous and has a burning characteristic. 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 fever and chills have resolved. Much better today. Objective - Vital Signs Vital signs: Vital Signs Temp 97.5 F L 03/09/17 14:57 Pulse 75 03/09/17 14:57 Resp 16 03/09/17 14:57 BP 138/78 03/09/17 14:57 Pulse Ox 97 03/09/17 14:57 Intake & Output 03/09/17 03/09/17 03/10/17 06:59 18:59 06:59 Other: # Voids 0 3 # Bowel Movements 0 - Exam 71-year-old male who suffers from obesity relates it is more comfortable at a HEENT: Anicteric conjunctiva are pink and moist nasal mucosa grossly intact without significant lesions, there is no thrush. Neck: The neck is supple without significant lymphadenopathy or thyromegaly. Lungs: Symmetric air entry is noted. Few expiratory wheezes are scattered. No coby bronchial sounds are noted. No egophony or dullness. Heart: irregular ith soft S4 There is no significant murmur click or rub, PMI was nondisplaced. Abdomen:obese Positive bowel sounds soft and nontender without palpable masses or organomegaly. There was no guarding or rebound. Extremities: The upper extremities have excellent pulses they are symmetric, no significant petechiae or telangiectasia. No splinter hemorrhages were noted. The left lower extremity has no acute lesions. Right lower extremity shows evidence of the extensive cellulitis on the pretibial surface distal the does traverse proximally especially on the posterior calf to above the knee. The coloration Has improved. There is evidence of minimal blister formation at the medial aspect of the ankle. No drainage is seen. The site is nontender. The extensive tender lymphadenopathy to the right groin has resolved. Left leg without lesions. Right foot shows evidence of the bit of dermatophytosis it's also noted on that foot. No open ulcerations are seen. Neuro: Awake alert oriented to person place and time. There are no acute new gross focal sensory motor deficits. - Labs CBC & Chem 7: 03/09/17 08:30 03/09/17 08:30 Labs: Abnormal Lab Results - Last 24 Hours (Table) 03/09/17 03/09/17 03/09/17 Range/Units 07:31 08:30 08:30 WBC 13.5 H (3.8-10.6) k/uL RBC 4.14 L (4.30-5.90) m/uL Hgb 11.4 L (13.0-17.5) gm/dL Hct 35.3 L (39.0-53.0) % Neutrophils # 11.1 H (1.3-7.7) k/uL BUN 25 H (9-20) mg/dL Glucose 215 H (74-99) mg/dL POC Glucose (mg/dL) 153 H (75-99) mg/dL Calcium 8.3 L (8.4-10.2) mg/dL Albumin 3.3 L (3.5-5.0) g/dL 03/09/17 03/09/17 03/09/17 Range/Units 11:46 16:54 20:32 WBC (3.8-10.6) k/uL RBC (4.30-5.90) m/uL Hgb (13.0-17.5) gm/dL Hct (39.0-53.0) % Neutrophils # (1.3-7.7) k/uL BUN (9-20) mg/dL Glucose (74-99) mg/dL POC Glucose (mg/dL) 274 H 165 H 110 H (75-99) mg/dL Calcium (8.4-10.2) mg/dL Albumin (3.5-5.0) g/dL Laboratory Results WBC 13.5 k/uL (3.8-10.6) H 03/09/17 08:30 RBC 4.14 m/uL (4.30-5.90) L 03/09/17 08:30 Hgb 11.4 gm/dL (13.0-17.5) L 03/09/17 08:30 Hct 35.3 % (39.0-53.0) L 03/09/17 08:30 MCV 85.2 fL (80.0-100.0) 03/09/17 08:30 MCH 27.6 pg (25.0-35.0) 03/09/17 08:30 MCHC 32.4 g/dL (31.0-37.0) 03/09/17 08:30 RDW 14.3 % (11.5-15.5) 03/09/17 08:30 Plt Count 297 k/uL (150-450) 03/09/17 08:30 Neutrophils % 82 % 03/09/17 08:30 Lymphocytes % 10 % 03/09/17 08:30 Monocytes % 5 % 03/09/17 08:30 Eosinophils % 1 % 03/09/17 08:30 Basophils % 0 % 03/09/17 08:30 Neutrophils # 11.1 k/uL (1.3-7.7) H 03/09/17 08:30 Lymphocytes # 1.4 k/uL (1.0-4.8) 03/09/17 08:30 Monocytes # 0.6 k/uL (0-1.0) 03/09/17 08:30 Eosinophils # 0.2 k/uL (0-0.7) 03/09/17 08:30 Basophils # 0.0 k/uL (0-0.2) 03/09/17 08:30 PT 10.9 sec (9.0-12.0) 03/04/17 13:34 INR 1.1 (<1.1) 03/04/17 13:34 APTT 27.4 sec (22.0-30.0) 03/04/17 13:34 D-Dimer 1.04 mg/L FEU (<0.60) H 03/04/17 13:34 Sodium 138 mmol/L (137-145) 03/09/17 08:30 Potassium 4.6 mmol/L (3.5-5.1) 03/09/17 08:30 Chloride 102 mmol/L (98-107) 03/09/17 08:30 Carbon Dioxide 25 mmol/L (22-30) 03/09/17 08:30 Anion Gap 11 mmol/L 03/09/17 08:30 BUN 25 mg/dL (9-20) H 03/09/17 08:30 Creatinine 1.20 mg/dL (0.66-1.25) 03/09/17 08:30 Est GFR (MDRD) Af Amer >60 (>60 ml/min/1.73 sqM) 03/09/17 08:30 Est GFR (MDRD) Non-Af 60 (>60 ml/min/1.73 sqM) 03/09/17 08:30 Glucose 215 mg/dL (74-99) H 03/09/17 08:30 POC Glucose (mg/dL) 110 mg/dL (75-99) H 03/09/17 20:32 POC Glu Claims Adjuster ID Kathie Huang 03/09/17 20:[address] Glu mg/dL 163 mg/dL 03/04/17 13:34 Hemoglobin A1c 7.3 % (4.2-6.1) H 03/04/17 13:34 Plasma Lactic Acid Artie 1.4 mmol/L (0.7-2.0) 03/04/17 13:34 Calcium 8.3 mg/dL (8.4-10.2) L 03/09/17 08:30 Total Bilirubin 0.7 mg/dL (0.2-1.3) 03/09/17 08:30 AST 28 U/L (17-59) 03/09/17 08:30 ALT 38 U/L (21-72) 03/09/17 08:30 Alkaline Phosphatase 84 U/L (38-126) 03/09/17 08:30 Total Creatine Kinase 437 U/L (55-170) H 03/04/17 13:34 CK-MB (CK-2) 5.9 ng/mL (0.0-2.4) H* 03/04/17 13:34 CK-MB (CK-2) Rel Index 1.4 03/04/17 13:34 Troponin I <0.012 ng/mL (0.000-0.034) 03/04/17 13:34 Total Protein 6.4 g/dL (6.3-8.2) 03/09/17 08:30 Albumin 3.3 g/dL (3.5-5.0) L 03/09/17 08:30 Urine Color Yellow 03/04/17 16:06 Urine Appearance Clear (Clear) 03/04/17 16:06 Urine pH 5.5 (5.0-8.0) 03/04/17 16:06 Ur Specific [place] 1.010 (1.001-1.035) 03/04/17 16:06 Urine Protein Trace (Negative) H 03/04/17 16:06 Urine Glucose (UA) Negative (Negative) 03/04/17 16:06 Urine Ketones Negative (Negative) 03/04/17 16:06 Urine Blood Negative (Negative) 03/04/17 16:06 Urine Nitrite Negative (Negative) 03/04/17 16:06 Urine Bilirubin Negative (Negative) 03/04/17 16:06 Urine Urobilinogen <2.0 mg/dL (<2.0) 03/04/17 16:06 Ur Leukocyte Esterase Negative (Negative) 03/04/17 16:06 C. difficile (EIA) Intrp Negative (Negative) 03/05/17 21:35 Microbiology 03/04/17 13:34 Blood Blood Culture - Preliminary No Growth after 120 hours 03/04/17 16:06 Urine,Voided Urine Culture - Final Escherichia coli Assessment and Plan (1) Cellulitis of right leg Narrative/Plan: 71-year-old male who has multiple medical troubles including obesity, diabetes, coronary artery disease who has no significant trauma to the right leg was developed extensive cellulitis to the right distal leg. He has to be and symptoms of for admission of fevers and chills and even diarrhea. All part of his sepsis at the time of admission. With elevation antibiotic therapies feeling slightly better. Continue Silvadene wrap which is applied personally which he finds to be quite soothing. This should be continued at least on a daily basis. Antibiotic therapy will be altered to daptomycin given his very slow response to current antibiotic therapy. Urinalysis is quite benign. Culture potentially has an E. coli. We'll initiate some therapy for that also at this point and will cultures are pending. The leg appears to have a significant streptococcal and possibly staphylococcal component to it. Improvement is noted today discharge home tomorrow on cefuroxime therapy 500mg for 10 days every 12 hours The fungal infection to the foot is treated with some topical antifungal therapy. The patient and are instructed about the importance of skin care and will important that can be for preventing further troubles in the future. Duplex was negative for deep venous thrombosis. Status: Acute (2) Coronary artery disease Status: Acute (3) Leukocytosis Status: Acute
[2017-03-10 00:58] VITALS: PULSE 76
[2017-03-10] MEDS: HYDROcodone/APAP 5-325MG 1 EACH TAB PO PRN ×2 (05:05→10:42)
[2017-03-10] MEDS: LEVOTHYROXINE 100 MCG TAB PO SCH (06:57)
[2017-03-10 07:42] LABS: Glucose,Whole Blood 120 mg/dL (75-99)
[2017-03-10] MEDS: INSULIN LISPRO (humaLOG) 300 UNIT/3 ML VIAL SQ SCH ×2 (08:01→12:53)
[2017-03-10] MEDS: CALCIUM CARB-VIT D 500MG-200UN 1 EACH TAB PO SCH (08:01)
[2017-03-10] MEDS: PANTOPRAZOLE 40 MG TABLET PO SCH (08:01)
[2017-03-10] MEDS: INSULIN REGULAR 100 UNIT/ML VIAL SQ SCH ×2 (08:01→12:53)
[2017-03-10] MEDS: HEPARIN SODIUM,PORCINE 5,000 UNIT/ML 1 ML VIAL SQ SCH (08:02)
[2017-03-10] MEDS: CHOLECALCIFEROL 400 UNIT TAB PO SCH (08:02)
[2017-03-10] MEDS: FUROSEMIDE 40 MG TAB PO SCH (08:02)
[2017-03-10] MEDS: GABAPENTIN 400 MG CAP PO SCH ×2 (08:02→12:53)
[2017-03-10] MEDS: DULoxetine HCL 30 MG CAPSULE.DR PO SCH (08:02)
[2017-03-10] MEDS: CILOSTAZOL 100 MG TAB PO SCH (08:02)
[2017-03-10] MEDS: INSULIN NPH 300 UNIT/3 ML VIAL SQ SCH (08:02)
[2017-03-10] MEDS: CLOPIDOGREL 75 MG TAB PO SCH (08:02)
[2017-03-10] MEDS: LISINOPRIL 20 MG TAB PO SCH (08:03)
[2017-03-10] MEDS: METOPROLOL TARTRATE 50 MG TAB PO SCH (08:03)
[2017-03-10 08:04] VITALS: BP 130/76; RESP 20; TEMP 96.7
[2017-03-10] MEDS ORDERED: SILVER sulfADIAZINE Cream 400 GM 1 APPLIC APPLIC TOPICAL SCH (11:00)
[2017-03-10] MEDS: TRIAMCINOLONE 0.1% CREAM 80 GM TUBE TOPICAL SCH (11:25)
[2017-03-10] MEDS: NYSTATIN 100,000UNIT/GM CREAM 30 GM TUBE TOPICAL SCH (11:25)
--- NOTE | 2017-03-10 12:09 | P.DS ---
Providers Date of admission: 03/04/17 19:03 Expected date of discharge: 03/10/17 Attending physician: Jesica Doran Consults: 03/05/17 15:59 Consult Physician Routine Consulting Provider: Paul Francis Consult Reason/Comments: cellulitis Do you want consulting provider notified?: Yes [facility] Course: This is a 71-year-old gentleman with past medical history noted below significant for recurrent right lower extremity cellulitis and underlying type 2 diabetes mellitus who presented to the hospital initially with worsening redness and pain in the right lower extremity. Patient was admitted to the hospital and was started on broad spectrum antibiotic intravenously. He was seen and evaluated by infectious disease. Blood cultures remained negative. Recommendation was to finish 10 days course of antibiotic with Cefuroxime 500 mg twice daily. Below is a list of his medical problems addressed during this hospitalization. 1. Right lower extremity cellulitis: Followed by infectious disease. Continue Silvadene and keeping legs elevated. Doppler of the right leg negative for DVT 2. Elevated d-dimer on admission CTA was negative for PE Doppler negative for DVT. 3. Shortness of breath on admission now resolved. PE has been ruled out. Chest x-ray negative. 4. History of paroxysmal atrial fibrillation not on anticoagulations due to history of bleeding 5. History of coronary artery disease with. His cardiac stents and bypass surgery 6. Diarrhea on presentation, resolved. Stool for C. diff negative. 7. History of chronic kidney disease 8. Hypothyroidism resume Synthroid 9. Diabetes mellitus 10. Essential hypertension Plan - Discharge Summary New Discharge Prescriptions: Cefuroxime [Ceftin] 500 mg PO BID #40 tablet Discharge Medication List Cetirizine HCl [Zyrtec] 10 mg PO HS 04/23/15 [History] Cilostazol [Pletal] 100 mg PO BID 04/23/15 [History] Clopidogrel [Plavix] 75 mg PO DAILY 04/23/15 [History] Gabapentin [Neurontin] 800 mg PO QID 04/23/15 [History] Levothyroxine Sodium [Levoxyl] 200 mcg PO DAILY 04/23/15 [History] Melatonin 5 mg PO HS 04/23/15 [History] Vitamin B Complex 1 cap PO DAILY 04/23/15 [History] Insulin NPH Human Isophane [NovoLIN N] 90 unit SQ BID 04/24/15 [History] Furosemide [Lasix] 40 mg PO DAILY tab 04/26/15 [Rx] Atorvastatin Calcium [Lipitor] 40 mg PO HS 03/02/17 [History] Insulin Regular, Human [NovoLIN R] 35 units SQ AC-TID 03/02/17 [History] Insulin Regular, Human [NovoLIN R] See Protocol SQ PC-TID 03/02/17 [History] Lisinopril [Zestril] 20 mg PO BID 03/02/17 [History] Pantoprazole Sodium [Protonix] 20 mg PO BID 03/02/17 [History] Ubidecarenone [Co Q-10] 100 mg PO DAILY 03/02/17 [History] metFORMIN HCL [Glucophage] 500 mg PO AC-BID 03/02/17 [History] rOPINIRole HCL [Requip Xl] 2 mg PO HS 03/02/17 [History] Ascorbic Acid [Vitamin C] 500 mg PO DAILY 03/04/17 [History] Calcium Carbonate/Vitamin D3 [Calcium 600-Vit D3 400 Caplet] 1 tab PO BID [History] Cholecalciferol [Vitamin D3] 400 unit PO DAILY 03/04/17 [History] DULoxetine HCL [Cymbalta] 30 mg PO DAILY 03/04/17 [History] Metoprolol Tartrate [Lopressor] 100 mg PO BID 03/04/17 [History] Multivit-Min/FA/Lycopene/Lut [Centrum Silver Tablet] 1 tab PO DAILY 03/04/17 [ History] [place]-3 Fatty Acids/Fish Oil [Fish Oil 1,000 mg Softgel] 1 cap PO DAILY [History] Acetaminophen Tab [Tylenol Tab] 650 mg PO Q6H PRN 03/05/17 [History] Cefuroxime [Ceftin] 500 mg PO BID #40 tablet 03/10/17 [Rx] Follow up Appointment(s)/Referral(s): Maria T Alvarado MD [Primary Care Provider] - 3 Days Discharge Disposition: HOME SELF-CARE
[2017-03-10 12:14] LABS: Glucose,Whole Blood 186 mg/dL (75-99)
[2017-03-10] MEDS: MULTIVITAMINS, THERA 1 EACH TAB PO SCH (12:53)
--- NOTE | 2017-03-12 17:13 | CDI ---
In responding to this query, please exercise your independent professional judgment. The [facility] Coding Staff and Clinical Documentation Specialists appreciate your assistance in clarifying documentation, maintaining compliance with coding guidelines, accurately documenting patients condition and capturing severity of illness. The fact that a question is asked does not imply that any particular answer is desired or expected. Communication forms are a method of clarifying documentation and are not made part of the Legal Health Record. Thank you in advance for your clarification. Last Revision, September 2015 Documentation Clarification Form Date: 03/12/2017 4:56:00 PM From: Sol Nicole, Coal Handling Supervisor Admit Date: 03/04/2017 7:03:00 PM Patient Name: Abhi Posadas Visit Number: [id number] Discharge Date: Dr. Arnold Patient presented with lower extremity cellulitis. Clinical Indicators:ER: temp 98.4, pulse 74, resp 16, BP 136/57, WBC 13/2 Treatment: IV Ancef 1 g q 8 hours. Consults: Infectious Disease Please clarify the condition you were monitoring and treating: Cellulitis with sepsis Cellulitis only Other, please clarify Clinically unable to determine Please document in your progress notes and discharge summary in order to capture severity of illness and risk of mortality. Include clinical findings that support your diagnosis. FYI: Press F11 to launch patient chart. Place X here if this finding has no clinical significance, is not applicable or if you are not able to provide any additional documentation. Cellulitis only MTDD
== END 2017-03-10 14:39 | disposition home or self-care (01) | DRG 603 ==
LOC: EC 12:21 → 4MS4W 19:03
PROVIDERS: ADMIT Internal Medicine; ATTEND Internal Medicine
DX: L03.115 Cellulitis of right lower limb (principal); E11.22 Type 2 diabetes mellitus with diabetic chronic kidney disease; G62.9 Polyneuropathy, unspecified; I48.0 Paroxysmal atrial fibrillation; J44.9 Chronic obstructive pulmonary disease, unspecified; E03.9 Hypothyroidism, unspecified; E78.5 Hyperlipidemia, unspecified; I10 Essential (primary) hypertension; E66.9 Obesity, unspecified; I25.10 Atherosclerotic heart disease of native coronary artery without angina pectoris; I45.10 Unspecified right bundle-branch block; I51.7 Cardiomegaly; K21.9 Gastro-esophageal reflux disease without esophagitis; K58.0 Irritable bowel syndrome with diarrhea; N18.9 Chronic kidney disease, unspecified; Z79.02 Long term (current) use of antithrombotics/antiplatelets; Z79.4 Long term (current) use of insulin; Z79.899 Other long term (current) drug therapy; Z85.850 Personal history of malignant neoplasm of thyroid; Z87.11 Personal history of peptic ulcer disease; Z87.891 Personal history of nicotine dependence; Z95.1 Presence of aortocoronary bypass graft; Z95.5 Presence of coronary angioplasty implant and graft
CPT/HCPCS: 36415; 71020; 71275; 80053; 81001; 81003; 82550; 82553; 83036; 83605; 84484; 85025; 85379; 85610; 85730; 87040; 87077; 87086; 87186; 87324; 87502; 93005; 94760; 96361; 96365; 96366; 99285

== ENCOUNTER → 2017-06-22 | Outpatient (CLI) | payer MEDICARE ==
[2017-06-22 10:39] LABS: Bilirubin, Delta 0.1 mg/dL (0.0-0.2); Total Bilirubin 0.5 mg/dL (0.2-1.3); Total Protein 7.1 g/dL (6.3-8.2)
== END | disposition home or self-care (01) ==
LOC: LABWHC1 10:02
PROVIDERS: ATTEND Internal Medicine Interventional Cardiology
DX: E78.2 Mixed hyperlipidemia (principal)
CPT/HCPCS: 36415; 80061; 80076

== ENCOUNTER → 2019-03-21 | Outpatient (CLI) | payer MEDICARE ==
[2019-03-21 16:28] LABS: Albumin 4.1 g/dL (3.80-4.90); Albumin/Globulin Ratio 1.78 (1.60-3.17); Anion Gap 9.6 mmol/L (4.00-12.00); Carbon Dioxide 22.4 mmol/L (21.6-31.8); Globulin 2.3 g/dL (1.6-3.3); Potassium 4.7 mmol/L (3.5-5.5); Total Bilirubin 0.6 mg/dL (0.2-1.2); Total Protein 6.4 g/dL (6.2-8.2)
[2019-03-21 16:29] LABS: LDL Cholesterol,Calculated 51.8 mg/dL (0.0-131.0); VLDL Calculation 40.2 mg/dL (5.00-40.00)
[2019-03-21 20:48] LABS: Hemoglobin A1C 8.2 % (4.0-6.0)
== END | disposition home or self-care (01) ==
LOC: LABWHC1 10:51
PROVIDERS: ATTEND Internal Medicine Endocrinology, Diabetes & Metabolism
DX: E11.65 Type 2 diabetes mellitus with hyperglycemia (principal)
CPT/HCPCS: 36415; 80053; 80061; 82043; 82570; 83036; 84443

== ENCOUNTER → 2019-08-23 | Outpatient (CLI) | payer MEDICARE ==
--- NOTE | 2019-08-23 14:53 | US ---
EXAMINATION TYPE: US kidneys/renal and bladder DATE OF EXAM: 08/23/2019 COMPARISON: NONE CLINICAL HISTORY: N17.9 Acute kidney failure, unspecified. DIAN, HTN, DM EXAM MEASUREMENTS: Right Kidney: 12.1 x 6.2 x 5.8 cm Left Kidney: 11.1 x 5.8 x 5.1 cm Right Kidney: no hydronephrosis, 3.0 x 3.0 x 3.1cm hypoechoic area inferior pole Left Kidney: no hydronephrosis or masses seen Bladder: wnl Bilateral Jets seen: Yes IMPRESSION: 1. Simple cyst inferior pole right kidney
== END | disposition home or self-care (01) ==
LOC: RADUSWWP 13:32
PROVIDERS: ATTEND Internal Medicine
DX: N28.1 Cyst of kidney, acquired (principal)
CPT/HCPCS: 76770

== ENCOUNTER 2019-09-18 17:56 | Emergency (ER) | payer MEDICARE ==
[2019-09-18 18:02] LABS: Glucose,Whole Blood 145 mg/dL (75-99)
[2019-09-18 18:04] VITALS: BP 116/61; PULSE 60; RESP 16; TEMP 97.3
--- NOTE | 2019-09-18 18:05 | ED ---
General Adult HPI - General Stated complaint: Weakness Time Seen by Provider: 09/18/19 17:56 Source: patient, EMS, RN notes reviewed Mode of arrival: EMS - History of Present Illness Initial comments: This is a 74-year-old male with a history of multiple medical issues including renal insufficiency he was brought in by EMS after being found unresponsive in a local restaurant with a blood sugar 35. He was given amp of D50 the sugar then went up to 231. Patient was diaphoretic he is awake and alert now but he was unresponsive at the time. She denies any chest pain shortness of breath fevers chills or other symptoms. He had not eaten all day. He was here for blood work earlier today. That is pending. Other modifying factors at this time. - Related Data Home Medications Medication Instructions Recorded Confirmed Cetirizine HCl [Zyrtec] 10 mg PO HS 04/23/15 03/04/17 Cilostazol [Pletal] 100 mg PO BID 04/23/15 03/04/17 Clopidogrel [Plavix] 75 mg PO DAILY 04/23/15 03/04/17 Gabapentin [Neurontin] 800 mg PO QID 04/23/15 03/04/17 Levothyroxine Sodium [Levoxyl] 200 mcg PO DAILY 04/23/15 03/04/17 Melatonin 5 mg PO HS 04/23/15 03/04/17 Vitamin B Complex 1 cap PO DAILY 04/23/15 03/04/17 Insulin NPH Human Isophane 90 unit SQ BID 04/24/15 03/04/17 [NovoLIN N] Atorvastatin Calcium [Lipitor] 40 mg PO HS 03/02/17 03/04/17 Insulin Regular, Human [NovoLIN R] 35 units SQ AC-TID 03/02/17 03/04/17 Insulin Regular, Human [NovoLIN R] See Protocol SQ PC-TID 03/02/17 03/04/17 Lisinopril [Zestril] 20 mg PO BID 03/02/17 03/04/17 Pantoprazole Sodium [Protonix] 20 mg PO BID 03/02/17 03/04/17 Ubidecarenone [Co Q-10] 100 mg PO DAILY 03/02/17 03/04/17 metFORMIN HCL [Glucophage] 500 mg PO AC-BID 03/02/17 03/04/17 rOPINIRole HCL [Requip Xl] 2 mg PO HS 03/02/17 03/04/17 Ascorbic Acid [Vitamin C] 500 mg PO DAILY 03/04/17 03/04/17 Calcium Carbonate/Vitamin D3 1 tab PO BID 03/04/17 03/04/17 [Calcium 600-Vit D3 400 Caplet] Cholecalciferol [Vitamin D3] 400 unit PO DAILY 03/04/17 03/04/17 DULoxetine HCL [Cymbalta] 30 mg PO DAILY 03/04/17 03/04/17 Metoprolol Tartrate [Lopressor] 100 mg PO BID 03/04/17 03/04/17 Multivit-Min/FA/Lycopen/Lutein 1 tab PO DAILY 03/04/17 03/04/17 [Centrum Silver Tablet] [place]-3 Fatty Acids/Fish Oil [Fish 1 cap PO DAILY 03/04/17 03/04/17 Oil 1,000 mg Softgel] Acetaminophen Tab [Tylenol Tab] 650 mg PO Q6H PRN 03/05/17 03/05/17 Previous Rx's Medication Instructions Recorded Furosemide [Lasix] 40 mg PO DAILY tab 04/26/15 Cefuroxime [Ceftin] 500 mg PO BID #40 tablet 03/10/17 Allergies Allergy/AdvReac Type Severity Reaction Status Date / Time venom-honey bee Allergy Anaphylaxis Verified 03/04/17 12:52 [bee venom (honey bee)] Xhnhnll-Hrx-Uzz Reductase AdvReac Severe Muscle Verified 03/04/17 12:52 Inhibitor Cramping aspirin AdvReac Bleeding Verified 03/04/17 12:52 Ulcers grass pollen-perennial rye, AdvReac Vertigo Verified 03/04/17 12:52 standar [grass poll-perennial rye,std] mold AdvReac Vertigo Verified 03/04/17 12:52 Review of Systems ROS Statement: Those systems with pertinent positive or pertinent negative responses have been documented in the HPI. ROS Other: All systems not noted in ROS Statement are negative. Past Medical History Past Medical History: Atrial Fibrillation, Coronary Artery Disease (CAD), Cancer, COPD, Diabetes Mellitus, GERD/Reflux, GI Bleed, Hyperlipidemia, Hypertension, Osteoarthritis (OA), Renal Disease, Thyroid Disorder Additional Past Medical History / Comment(s): thyroid ca, left adrenal gland ca- removed, arhtritis lower back, enlarged heart, migranies,diverticulitis,pinched nerve in diapragmn, pt stated " i have natrually thin blood" History of Any Multi-Drug Resistant Organisms: None Reported Past Surgical History: Cholecystectomy, Coronary Bypass/CABG, Heart Catheterization With Stent, Tonsillectomy Additional Past Surgical History / Comment(s): thyroidectomy adrenal gland removed, 12 heart cath with stents, "open heart to repair hole in heart" nasal sx for deviated septum,uvulectomy, paratyhroidectomy. Past Anesthesia/Blood Transfusion Reactions: No Reported Reaction Additional Past Anesthesia/Blood Transfusion Reaction / Comment(s): padmini sterphobia. past blood transfusions without problems. Date of Last Stent Placement:: Past Psychological History: No Psychological Hx Reported Additional Psychological History / Comment(s): . 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 No experience. No international travel. No animal exposures. Adult children who are healthy Smoking Status: Former smoker Past Alcohol Use History: Rare Additional Past Alcohol Use History / Comment(s): smoked for 3 years then quit at age 22. Past Drug Use History: None Reported Additional Drug Use History / Comment(s): in the 1970s smoked marijuana - Past Family History Father Family Medical History: Renal Disease Additional Family Medical History / Comment(s): heart problems Mother Family Medical History: Diabetes Mellitus General Exam - General Exam Comments Initial Comments: This is a well-developed well-nourished awake alert oriented 3 male General appearance: alert, in no apparent distress Head exam: Present: atraumatic, normocephalic, normal inspection Eye exam: Present: normal appearance, PERRL, EOMI. Absent: scleral icterus, conjunctival injection, periorbital swelling ENT exam: Present: normal exam, mucous membranes moist Neck exam: Present: normal inspection. Absent: tenderness, meningismus, lymphadenopathy Respiratory exam: Present: normal lung sounds bilaterally, other (Well-healed and sternotomy scar.). Absent: respiratory distress, wheezes, rales, rhonchi, stridor Cardiovascular Exam: Present: regular rate, normal rhythm, normal heart sounds. Absent: systolic murmur, diastolic murmur, rubs, gallop, clicks GI/Abdominal exam: Present: soft, normal bowel sounds. Absent: distended, tenderness, guarding, rebound, rigid Extremities exam: Present: full ROM, normal capillary refill, other (Stasis dermatitis bilaterally with some trace edema.). Absent: tenderness, pedal edema, joint swelling, calf tenderness Back exam: Present: normal inspection Neurological exam: Present: alert, oriented X3, CN II-XII intact Psychiatric exam: Present: normal affect, normal mood Skin exam: Present: warm, dry, intact, normal color. Absent: rash Course Vital Signs 09/18/19 17:59 Temperature 97.3 F L Pulse Rate 60 Respiratory 16 Rate Blood Pressure 116/61 O2 Sat by Pulse 95 Oximetry - Reevaluation(s) Reevaluation #1: 09/18/19 18:05 I was able to review the CBC done earlier today and appears to be minimally remarkable except for hemoglobin 12.5 and hematocrit of 36.8 weight was unremarkable chemistry is pending the dyspnea did review the EKG submitted by EMS showed no evidence of acute ST-T wave changes evidence right bundle-branch block heart rate in the 50s Reevaluation #2: 09/18/19 18:55 The patient remains awake alert oriented 3 his is presently did discuss the findings he will be discharged she will drive home they will follow-up with her doctor as planned and return when necessary the chemistry labs from earlier today are still unavailable the patient does have elevated creatinine. EKG Findings - EKG Results: EKG: interpreted by ERMD (There was sinus rhythm rate is 62 PA interval 166 QRS 150 QT since QTC 490/497 by bundle-branch block pattern no acute ST-T wave changes) Medical Decision Making - Lab Data Result diagrams: 09/18/19 18:20 09/18/19 18:20 Lab Results 09/18/19 09/18/19 09/18/19 Range/Units 18:01 18:20 18:20 WBC 8.0 (3.8-10.6) k/uL RBC 4.32 (4.30-5.90) m/uL Hgb 12.4 L (13.0-17.5) gm/dL Hct 36.0 L (39.0-53.0) % MCV 83.4 (80.0-100.0) fL MCH 28.7 (25.0-35.0) pg MCHC 34.4 (31.0-37.0) g/dL RDW 14.2 (11.5-15.5) % Plt Count 237 (150-450) k/uL Neutrophils % 71 % Lymphocytes % 17 % Monocytes % 6 % Eosinophils % 2 % Basophils % 1 % Neutrophils # 5.6 (1.3-7.7) k/uL Lymphocytes # 1.4 (1.0-4.8) k/uL Monocytes # 0.5 (0-1.0) k/uL Eosinophils # 0.2 (0-0.7) k/uL Basophils # 0.1 (0-0.2) k/uL Sodium 141 (137-145) mmol/L Potassium 4.7 (3.5-5.1) mmol/L Chloride 106 (98-107) mmol/L Carbon Dioxide 27 (22-30) mmol/L Anion Gap 8 mmol/L BUN 34 H (9-20) mg/dL Creatinine 1.72 H (0.66-1.25) mg/dL Est GFR (CKD-EPI)AfAm 45 (>60 ml/min/1.73 sqM) Est GFR (CKD-EPI)NonAf 39 (>60 ml/min/1.73 sqM) Glucose 101 H (74-99) mg/dL POC Glucose (mg/dL) 145 H (75-99) mg/dL POC Glu Plywood Layup Line Core Layer ID Edna Reynoso Calcium 8.6 (8.4-10.2) mg/dL Magnesium 2.4 H (1.6-2.3) mg/dL Total Bilirubin 0.8 (0.2-1.3) mg/dL AST 58 (17-59) U/L ALT 41 (21-72) U/L Alkaline Phosphatase 65 (38-126) U/L Total Protein 7.5 (6.3-8.2) g/dL Albumin 4.2 (3.5-5.0) g/dL Disposition Clinical Impression: Hypoglycemia, Renal insufficiency Disposition: HOME SELF-CARE Condition: Good Instructions (If sedation given, give patient instructions): Hypoglycemia in a Person with Diabetes (ED), Chronic Kidney Disease (ED) Is patient prescribed a controlled substance at d/c from ED?: No Referrals: Maria T Alvarado MD [Primary Care Provider] - 1-2 days
[2019-09-18 18:33] LABS: Basophils # (A) 0.1 k/uL (0-0.2); Basophils % (A) 1 %; Eosinophils # (A) 0.2 k/uL (0-0.7); Eosinophils % (A) 2 %; HGB 12.4 gm/dL (13.0-17.5); Lymphocytes # (A) 1.4 k/uL (1.0-4.8); Lymphocytes % (A) 17 %; MCH 28.7 pg (25.0-35.0); MCHC 34.4 g/dL (31.0-37.0); MCV 83.4 fL (80.0-100.0); Mean Platelet Volume 6.6; Monocytes # (A) 0.5 k/uL (0-1.0); Monocytes % (A) 6 %; Neutrophils # (A) 5.6 k/uL (1.3-7.7); Neutrophils % (A) 71 %; Platelet Count 237 k/uL (150-450); RBC 4.32 m/uL (4.30-5.90); RDW 14.2 % (11.5-15.5)
[2019-09-18 18:36] LABS: Albumin 4.2 g/dL (3.5-5.0); Calcium 8.6 mg/dL (8.4-10.2); Magnesium 2.4 mg/dL (1.6-2.3); Total Bilirubin 0.8 mg/dL (0.2-1.3); Total Protein 7.5 g/dL (6.3-8.2)
[2019-09-18 18:44] LABS: Potassium 4.7 mmol/L (3.5-5.1)
[2019-09-18 19:41] LABS: Glucose,Whole Blood 203 mg/dL (75-99)
== END 2019-09-18 19:52 | disposition home or self-care (01) ==
LOC: EC 17:56
DX: N28.9 Disorder of kidney and ureter, unspecified (principal); E16.2 Hypoglycemia, unspecified; I45.10 Unspecified right bundle-branch block; F12.90 Cannabis use, unspecified, uncomplicated; J30.1 Allergic rhinitis due to pollen; I25.10 Atherosclerotic heart disease of native coronary artery without angina pectoris; I48.91 Unspecified atrial fibrillation; E11.9 Type 2 diabetes mellitus without complications; K21.9 Gastro-esophageal reflux disease without esophagitis; E78.5 Hyperlipidemia, unspecified; I10 Essential (primary) hypertension; M19.90 Unspecified osteoarthritis, unspecified site; E07.9 Disorder of thyroid, unspecified; Z79.02 Long term (current) use of antithrombotics/antiplatelets; Z79.890 Hormone replacement therapy; Z79.82 Long term (current) use of aspirin; Z79.4 Long term (current) use of insulin; Z79.899 Other long term (current) drug therapy; Z91.030 Bee allergy status; Z88.6 Allergy status to analgesic agent; Z91.048 Other nonmedicinal substance allergy status; Z77.120 Contact with and (suspected) exposure to mold (toxic); Z85.850 Personal history of malignant neoplasm of thyroid; Z90.89 Acquired absence of other organs; Z87.891 Personal history of nicotine dependence; Z90.49 Acquired absence of other specified parts of digestive tract; Z87.19 Personal history of other diseases of the digestive system; Z95.1 Presence of aortocoronary bypass graft; Z95.5 Presence of coronary angioplasty implant and graft
CPT/HCPCS: 36415; 80053; 83735; 85025; 93005; 99285

== ENCOUNTER → 2019-09-18 | Outpatient (CLI) | payer MEDICARE ==
[2019-09-18 17:46] LABS: Basophils % (A) 0 %; Eosinophils # (A) 0.2 k/uL (0-0.7); Eosinophils % (A) 2 %; HCT 36.8 % (39.0-53.0); HGB 12.5 gm/dL (13.0-17.5); Lymphocytes # (A) 2.4 k/uL (1.0-4.8); Lymphocytes % (A) 26 %; MCH 28.5 pg (25.0-35.0); MCV 83.8 fL (80.0-100.0); Mean Platelet Volume 6.2; Monocytes # (A) 0.7 k/uL (0-1.0); Monocytes % (A) 7 %; Neutrophils # (A) 5.8 k/uL (1.3-7.7); Neutrophils % (A) 62 %; Platelet Count 277 k/uL (150-450); RBC 4.39 m/uL (4.30-5.90); RDW 14.3 % (11.5-15.5); WBC 9.3 k/uL (3.8-10.6)
[2019-09-18 17:47] LABS: Appearance,Urine Clear (Clear); Bilirubin,Urine Negative (Negative); Blood,Urine Negative (Negative); Color,Urine Yellow; Glucose,Urine (UA) Negative (Negative); Ketones,Urine Negative (Negative); Leukocyte Esterase,Urine Negative (Negative); Nitrite,Urine Negative (Negative); PH, Urine 5.5 (5.0-8.0); Protein,Urine Trace (Negative); Specific Gravity,Urine 1.011 (1.001-1.035); Urobilinogen,Urine <2.0 mg/dL (<2.0)
[2019-09-19 01:46] LABS: Creatinine,Urine Random 59.7 mg/dL
[2019-09-19 02:10] LABS: Total Protein,Urine Random 17.9 mg/dL (0.0-13.5)
[2019-09-19 02:16] LABS: African American GFR (CKD) 42.3 (60.0-200.0); Albumin 4.4 g/dL (3.80-4.90); Albumin/Globulin Ratio 1.91 (1.60-3.17); Anion Gap 10.9 mmol/L (4.00-12.00); BUN/Creat Ratio 18.89 Ratio (12.00-20.00); Calcium 8.7 mg/dL (8.7-10.3); Carbon Dioxide 24.1 mmol/L (21.6-31.8); Globulin 2.3 g/dL (1.6-3.3); Phosphorus 4.1 mg/dL (2.4-5.1); Potassium 4.8 mmol/L (3.5-5.5); Total Bilirubin 0.6 mg/dL (0.3-1.2); Total Protein 6.7 g/dL (6.2-8.2)
== END | disposition home or self-care (01) ==
LOC: LABWHC1 16:00
PROVIDERS: ATTEND Internal Medicine
DX: N17.9 Acute kidney failure, unspecified (principal); N18.3 Chronic kidney disease, stage 3 (moderate)
CPT/HCPCS: 36415; 80053; 81003; 82043; 82306; 82550; 82570; 83970; 84100; 84156; 85025

== ENCOUNTER → 2019-10-28 | Outpatient (CLI) | payer MEDICARE ==
--- NOTE | 2019-10-28 14:54 | MR ---
EXAMINATION TYPE: MR knee LT wo con DATE OF EXAM: 10/28/2019 COMPARISON: None HISTORY: Left knee pain Multiplanar multiecho imaging of the left knee was performed with no contrast. There is thickening and increased signal in the posterior cruciate ligament in the posterior aspect. The anterior cruciate ligament is intact. There is moderate size knee joint effusion. There is horizontal increased signal through the posterior horn medial meniscus. There is increased s ignal in the anterior and posterior horns of the lateral meniscus without extension to the articular surface. The collateral ligaments are intact. There is some narrowing of the medial joint space. There is some thinning and medial displacement of the medial meniscus. There is 1.7 x 1 cm popliteal cyst. There i s 2 cm mixed signal lesion in the distal femoral metaphysis consistent with bone infarct. IMPRESSION: There is partial tear of the posterior cruciate ligament. Osteoarthritis medial joint space. Intrasubstance tears of the medial and lateral menisci as above. Moderately large knee joint effusion with debris in the joint fluid. No fracture.
== END | disposition home or self-care (01) ==
LOC: RADMRIMAIN 13:49
PROVIDERS: ATTEND Orthopaedic Surgery
DX: M17.12 Unilateral primary osteoarthritis, left knee (principal); S83.522A Sprain of posterior cruciate ligament of left knee, initial encounter; S83.282A Other tear of lateral meniscus, current injury, left knee, initial encounter; S83.242A Other tear of medial meniscus, current injury, left knee, initial encounter

== ENCOUNTER → 2020-09-27 | Outpatient (CLI) | payer MEDICARE ==
[2020-09-27 12:37] LABS: Basophils % (A) 0 %; Eosinophils # (A) 0.2 k/uL (0-0.7); Eosinophils % (A) 3 %; HCT 34.6 % (39.0-53.0); HGB 11.5 gm/dL (13.0-17.5); Lymphocytes % (A) 25 %; MCH 27.2 pg (25.0-35.0); MCHC 33.3 g/dL (31.0-37.0); MCV 81.8 fL (80.0-100.0); Mean Platelet Volume 7.3; Monocytes # (A) 0.5 k/uL (0-1.0); Monocytes % (A) 7 %; Neutrophils # (A) 4.8 k/uL (1.3-7.7); Neutrophils % (A) 61 %; Platelet Count 230 k/uL (150-450); RBC 4.22 m/uL (4.30-5.90); WBC 7.8 k/uL (3.8-10.6)
[2020-09-27 19:09] LABS: Potassium 4.8 mmol/L (3.5-5.5)
== END | disposition home or self-care (01) ==
LOC: LABWHC1 11:49
PROVIDERS: ATTEND Orthopaedic Surgery
DX: Z01.818 Encounter for other preprocedural examination (principal); M23.92 Unspecified internal derangement of left knee
CPT/HCPCS: 36415; 80051; 85025

== ENCOUNTER 2020-10-01 09:32 | Day surgery (SDC) | payer MEDICARE ==
[2020-09-25 15:55] VITALS: BMI 35.3
--- NOTE | 2020-09-30 10:38 | HP ---
HISTORY AND PHYSICAL CHIEF COMPLAINT: Left knee pain. HISTORY OF PRESENT ILLNESS: Patient is a 75-year-old retired male who presents with progressive left knee pain for the past 6 months. He notes pain with walking and stairs. He has had swelling in addition to buckling and giving out. He has tried medications in addition to an injection with only partial temporary relief. He is using a cane. He notes he is significantly limited because of pain and mechanical symptoms. PAST MEDICAL HISTORY: Significant for coronary artery disease, [id number] diabetes, hyperlipidemia, tobacco use, along with obesity. PAST SURGICAL HISTORY: Significant for coronary artery bypass grafting. CURRENT MEDICATIONS: Insulin, Levoxyl, Neurontin, Plavix, Requip, Zestril, Zyrtec, atorvastatin, Lasix, hydrochlorothiazide. He notes allergies to ASPIRIN, STATINS, and BEE STINGS. FAMILY HISTORY: Noncontributory. SOCIAL HISTORY: Significant for previous tobacco use. 16 POINT REVIEW OF SYSTEMS: Otherwise reviewed and is noncontributory. PHYSICAL EXAMINATION: On examination, the patient is approximately 6 foot 4, 300 pounds of endomorphic habitus. HEENT: Exam is nonfocal. NECK: Supple. He has painless passive motion of his left hip. Straight leg raise is negative. Active motion left knee -15 to 85 degrees of flexion. He has a large effusion. He is tender about the medial joint line. Collaterals are stable, Jayla is negative, Oly's elicits medial pain. He does have genu varum alignment. His distal neurovascular appears intact in left lower extremity. Previous x-rays of the left knee obtained in the office show moderate medial and patellofemoral compartment narrowing. MRI report left knee shows increased signal on the posterior horn medial meniscus. IMPRESSION: 1. Left knee internal derangement with probable medial meniscal tear. 2. Non-insulin dependent diabetes. 3. History of coronary artery disease. RECOMMENDATIONS: I talked to the patient at length regarding his condition along with treatment options. At this point, he remains quite symptomatic despite previous conservative measures. After thorough discussion, he opts to proceed with surgery. We will plan to proceed with left knee arthroscopy with probable partial medial meniscectomy. We will reinstitute his Plavix postoperatively. He underwent preoperative cardiac evaluation. MMODL / IJN: [id number] /
[~2020-10-01 09:32] MED LIST: DEXAMETHASONE SOD PHOSPHATE 4 MG/ML 1 ML VIAL IV ONE; LACTATED RINGERS 1,000 ML IV SCH; LIDOCAINE 1% (10MG/ML) FOR IV START INTRADERMA PRN; MIDAZOLAM 2 MG/2 ML VIAL IV PRN; ONDANSETRON 4 MG/2 ML VIAL IVP ONE; ceFAZolin 3 GM in SODIUM CHLORIDE 0.9% 100 ML IVPB PRN
[2020-10-01 10:16] LABS: Glucose,Whole Blood 211 mg/dL (75-99)
[2020-10-01] MEDS ORDERED: fentaNYL (PF) 50 MCG/ML 2 ML AMP ONE (10:32)
[2020-10-01] MEDS ORDERED: KETAMINE 10 MG/ML 20 ML VIAL ONE (10:32)
[2020-10-01] MEDS ORDERED: PHENYLEPHRINE-0.9% NACL SYG 1 MG/10 ML SYRINGE ONE (10:32)
[2020-10-01] MEDS ORDERED: LIDOCAINE 1% INJ 10MG/ML (20 ML MDV) ONE (10:32)
[2020-10-01] MEDS ORDERED: PROPOFOL 10 MG/ML 20 ML VIAL IV ONE (10:32)
[2020-10-01] MEDS ORDERED: SUCCINYLCHOLINE CHLORIDE 100 MG/5 ML SYR IV ONE (10:32)
[2020-10-01] MEDS ORDERED: EPINEPHrine (PF) 1 ML in SODIUM CHLORIDE 0.9% IRRIGATIO 3,000 ML IRRIGATION ONE ×4 (10:57)
--- NOTE | 2020-10-01 11:31 | P.OP ---
Date of Procedure: 10/01/20 Preoperative Diagnosis: Left knee internal derangement Postoperative Diagnosis: Left knee posterior medial meniscal tear/middle one third lateral meniscal tear/grade 3 chondral injury distal lateral portion medial femoral condyle Procedure(s) Performed: Left knee arthroscopic partial medial meniscectomy/partial lateral meniscectomy/microfracture medial femoral condyle Anesthesia: DUARTE Surgeon: Job Arias Estimated Blood Loss (ml): 10 Pathology: none sent Condition: stable Disposition: PACU Indications for Procedure: The patient's a 75-year-old male who presents with progressive left knee pain and mechanical symptoms despite extensive conservative treatment. A discussion of the risks and benefits of operative intervention versus continued conservative measures was made with the patient. He opted to proceed with surgery. Operative risks to include infection, neurovascular injury, development of blood clots, possible incomplete resolution of symptoms, possible worsening symptoms and need for subsequent procedures was discussed. Informed consent was obtained. Operative Findings: As below Description of Procedure: The patient was brought to the operating room, and after induction of general anesthesia examined the left knee. Collaterals were stable, Jayla was negative, and posterior drawer was negative. The left lower extremity was prepped and draped in a normal fashion. A superior lateral portal was made through a 3 mm skin incision superior and lateral to the patella. This was used for outflow. A lateral portal was made through a 5 mm vertical skin incision lateral to the patella tendon above the joint line. Diagnostic arthroscopy was performed. On inspection of the medial compartment, a complex tear involving the posterior horn of the medial meniscus in the white-red junction was noted. This was debrided back to stable base with straight baskets and a motorized shaver. A grade 3 chondral injury involving the distal lateral portion medial femoral condyle was noted a loose chondral fragment. This was debrided back to stable base with a motorized shaver. This measured approximately 6 x 6 mm. Microfracture was performed with a power peg reaching the subchondral surface down the bone marrow elements in this region of the medial femoral condyle. On inspection of the notch, the anterior cruciate ligament appeared to be intact. On inspection of the lateral compartment, a tear involving the lateral meniscus in the middle one third in the white-white junction was noted. This was debrided back to stable base with straight baskets and a motorized shaver. On inspection of the patellofemoral articulation, there was diffuse grade 2-3 chondral changes.. The gutters were clear debris. The knee was then thoroughly irrigated. The portals were closed with Steri-Strips. A sterile dressing was applied in addition to a compression stocking. The patient was awoken from general anesthesia and transferred to recovery room in good condition. Blood loss was estimated at 10 mL. No complications were incurred.
[2020-10-01 11:43] VITALS: TEMP 96.8
[2020-10-01] MEDS: HYDROmorphone 0.5 MG/0.5 ML SYRINGE IVP PRN ×3 (11:53→12:14)
[2020-10-01] MEDS ORDERED: LACTATED RINGERS 1,000 ML IV ONE (12:25)
[2020-10-01 13:40] LABS: Glucose,Whole Blood 209 mg/dL (75-99)
[2020-10-01] MEDS ORDERED: HYDROcodone/APAP 5-325MG 1 EACH TAB ONE (13:41)
[2020-10-01 13:57] VITALS: BP 127/75; PULSE 70; RESP 16
== END 2020-10-01 14:54 | disposition home or self-care (01) ==
LOC: OR 09:32
PROVIDERS: ATTEND Orthopaedic Surgery
DX: M23.204 Derangement of unspecified medial meniscus due to old tear or injury, left knee (principal); M23.201 Derangement of unspecified lateral meniscus due to old tear or injury, left knee; M94.8X6 Other specified disorders of cartilage, lower leg; I25.10 Atherosclerotic heart disease of native coronary artery without angina pectoris; E11.9 Type 2 diabetes mellitus without complications; E78.5 Hyperlipidemia, unspecified; E66.9 Obesity, unspecified; Z68.36 Body mass index [BMI] 36.0-36.9, adult; Z95.1 Presence of aortocoronary bypass graft; I48.91 Unspecified atrial fibrillation; Z87.891 Personal history of nicotine dependence; Z79.02 Long term (current) use of antithrombotics/antiplatelets; Z79.890 Hormone replacement therapy; Z79.4 Long term (current) use of insulin; Z79.899 Other long term (current) drug therapy; Z88.8 Allergy status to other drugs, medicaments and biological substances; Z88.6 Allergy status to analgesic agent; Z91.030 Bee allergy status
CPT/HCPCS: 29880; 29879; J1100; J0690; J2405; J0171; J2001; J3010; J2370; J0330; J2704; J1170

== ENCOUNTER → 2021-01-03 | Outpatient (CLI) | payer MEDICARE | END | disposition home or self-care (01) | LOC: LABWHC1 10:58 | PROVIDERS: ATTEND Family Medicine | DX: Z20.822 Contact with and (suspected) exposure to COVID-19 (principal) | CPT/HCPCS: U0003; U0005 ==

== ENCOUNTER → 2021-05-26 | Outpatient (CLI) | payer MEDICARE ==
--- NOTE | 2021-05-26 16:22 | US ---
EXAMINATION TYPE: US venous doppler duplex LE LT DATE OF EXAM: 05/26/2021 4:05 PM COMPARISON: US CLINICAL HISTORY: R22.42 SWELLING LT LOWER LIMB. Skin redness left lower leg; previous cellulitis sin ce December; bilateral ankle edema with left leg greater than right. SIDE PERFORMED: Left TECHNIQUE: The lower extremity deep venous system is examined utilizing real time linear array sonog meg with graded compression, doppler sonography and color-flow sonography. VESSELS IMAGED: Common Femoral Vein Deep Femoral Vein Greater Saphenous Vein * Femoral Vein Popliteal Vein Small Saphenous Vein * Proximal Calf Veins (* superficial vessels) Left Leg: Negative for DVT. Edema channels are noted at left ankle. IMPRESSION: No evidence for DVT at this time.
[2021-05-26 16:24] LABS: Basophils % (A) 0 %; Eosinophils # (A) 0.2 k/uL (0-0.7); Eosinophils % (A) 3 %; HCT 35.4 % (39.0-53.0); HGB 11.7 gm/dL (13.0-17.5); Lymphocytes % (A) 24 %; MCH 27.7 pg (25.0-35.0); MCHC 33.1 g/dL (31.0-37.0); MCV 83.7 fL (80.0-100.0); Mean Platelet Volume 7.9; Monocytes # (A) 0.6 k/uL (0-1.0); Monocytes % (A) 7 %; Neutrophils # (A) 5.2 k/uL (1.3-7.7); Neutrophils % (A) 63 %; Platelet Count 220 k/uL (150-450); RBC 4.23 m/uL (4.30-5.90); RDW 14.8 % (11.5-15.5); WBC 8.3 k/uL (3.8-10.6)
[2021-05-26 16:55] LABS: Albumin 4.1 g/dL (3.5-5.0); Calcium 9.2 mg/dL (8.4-10.2); Potassium 4.5 mmol/L (3.5-5.1); Total Bilirubin 0.4 mg/dL (0.2-1.3)
--- NOTE | 2021-05-26 17:35 | NM ---
EXAMINATION TYPE: NM pul vent and perfuse DATE OF EXAM: 05/26/2021 COMPARISON: 04/24/2015 HISTORY: TECHNIQUE: Utilizing inhalation of 38.9 mCi Tc 99m DTPA aerosol and intravenous injection of 4.3 mCi of Tc 99m MAA, ventilation and perfusion images are acquired post injection in multiple projections. FINDINGS: There is matching defect at the right lung base related to elevated right diaphragm evident on the est x-ray today. There is no ventilation/perfusion mismatch. I see no segmental type defect. IMPRESSION: Negative exam. There is low probability of pulmonary embolism. No change compared to old exam.
== END | disposition home or self-care (01) ==
LOC: RADUSWWP 15:31
PROVIDERS: ATTEND Internal Medicine
DX: R60.0 Localized edema (principal)
CPT/HCPCS: 85379; 80053; 85025; 93971; 78582; A9540; A9567

== ENCOUNTER → 2021-11-03 | Outpatient (CLI) | payer MEDICARE | END | disposition home or self-care (01) | LOC: LABWHC1 09:15 | PROVIDERS: ATTEND Family Medicine | DX: Z01.812 Encounter for preprocedural laboratory examination (principal); Z20.822 Contact with and (suspected) exposure to COVID-19 | CPT/HCPCS: U0003; U0005 ==

== ENCOUNTER 2021-11-22 01:55 | Emergency (ER) | payer MEDICARE ==
[2021-11-22 02:14] VITALS: TEMP 98.9
[2021-11-22] MEDS ORDERED: IPRATROPIUM-ALBUTEROL 3 ML NEB INHALATION STA (02:18)
[2021-11-22] MEDS ORDERED: SODIUM CHLORIDE 0.9% 1,000 ML IV STA (02:18)
[2021-11-22] MEDS ORDERED: MORPHINE SULFATE 4 MG/ML SYRINGE IVP STA (02:19)
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
[2021-11-22 02:52] VITALS: RESP 18
[2021-11-22 02:55] LABS: Basophils % (A) 0 %; Eosinophils # (A) 0.2 k/uL (0-0.7); Eosinophils % (A) 2 %; HCT 34.9 % (39.0-53.0); HGB 11.5 gm/dL (13.0-17.5); Hypochromasia Slight; Lymphocytes % (A) 10 %; MCH 28.3 pg (25.0-35.0); MCV 85.6 fL (80.0-100.0); Mean Platelet Volume 7.8; Monocytes # (A) 0.3 k/uL (0-1.0); Monocytes % (A) 3 %; Neutrophils # (A) 8.5 k/uL (1.3-7.7); Neutrophils % (A) 85 %; Platelet Count 244 k/uL (150-450); RBC 4.08 m/uL (4.30-5.90); RDW 14.9 % (11.5-15.5)
[2021-11-22 03:09] LABS: INR 0.9 (<1.2); Partial Thromboplastin Time 26.4 sec (22.0-30.0); Prothrombin Time 10.2 sec (9.0-12.0)
[2021-11-22 03:24] LABS: Albumin 3.8 g/dL (3.5-5.0); Magnesium 2.3 mg/dL (1.6-2.3); Potassium 4.8 mmol/L (3.5-5.1); Total Bilirubin 0.6 mg/dL (0.2-1.3); Total Protein 6.8 g/dL (6.3-8.2)
--- NOTE | 2021-11-22 04:19 | XR ---
EXAMINATION TYPE: XR chest 1V portable DATE OF EXAM: 11/22/2021 COMPARISON: 05/26/2021 HISTORY: Short of breath TECHNIQUE: FINDINGS: There is some elevation of the right diaphragm. There are sternal wires. There is no heart failure nor confluent pneumonic infiltrate. The costophrenic angles are fairly clear. IMPRESSION: There is mild chronic elevation of the right diaphragm. No heart failure. No change.
--- NOTE | 2021-11-22 04:20 | XR ---
EXAMINATION TYPE: XR knee complete LT DATE OF EXAM: 11/22/2021 COMPARISON: NONE HISTORY: Pain TECHNIQUE: 3 views FINDINGS: There is some spurring of the patella. There is spurring at the tibial tubercle. There is s ome spurring and fragmentation at the medial aspect medial tibial condyle consistent with old trauma. I see no acute fracture. There is small knee joint effusion. IMPRESSION: No acute bony abnormality. Knee joint effusion.
[2021-11-22 05:18] VITALS: BP 144/78; PULSE 78
== END 2021-11-22 05:27 | disposition home or self-care (01) ==
LOC: EC 01:55
DX: J44.1 Chronic obstructive pulmonary disease with (acute) exacerbation (principal); S80.02XA Contusion of left knee, initial encounter; M25.462 Effusion, left knee; E11.22 Type 2 diabetes mellitus with diabetic chronic kidney disease; I12.9 Hypertensive chronic kidney disease with stage 1 through stage 4 chronic kidney disease, or unspecified chronic kidney disease; N18.30 Chronic kidney disease, stage 3 unspecified; I48.91 Unspecified atrial fibrillation; I25.10 Atherosclerotic heart disease of native coronary artery without angina pectoris; E78.5 Hyperlipidemia, unspecified; K21.9 Gastro-esophageal reflux disease without esophagitis; M19.90 Unspecified osteoarthritis, unspecified site; Z95.5 Presence of coronary angioplasty implant and graft; Z87.891 Personal history of nicotine dependence; Z79.4 Long term (current) use of insulin; Z79.890 Hormone replacement therapy; Z79.899 Other long term (current) drug therapy; V89.2XXA Person injured in unspecified motor-vehicle accident, traffic, initial encounter; Y92.410 Unspecified street and highway as the place of occurrence of the external cause
CPT/HCPCS: 36415; 94640; 93005; 85379; 83880; 80053; 83605; 83735; 84484; 85025; 85610; 85730; 73562; 71045; 99285; 96374; J2270

== ENCOUNTER 2022-02-01 09:43 | Emergency (ER) | payer MEDICARE ==
[2022-02-01 11:29] VITALS: RESP 14; TEMP 97.8
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
[2022-02-01 12:20] LABS: Basophils % (A) 0 %; Eosinophils # (A) 0.2 k/uL (0-0.7); Eosinophils % (A) 2 %; HGB 10.4 gm/dL (13.0-17.5); Lymphocytes # (A) 1.6 k/uL (1.0-4.8); Lymphocytes % (A) 19 %; MCH 26.9 pg (25.0-35.0); MCHC 31.7 g/dL (31.0-37.0); MCV 84.9 fL (80.0-100.0); Monocytes # (A) 0.6 k/uL (0-1.0); Monocytes % (A) 7 %; Neutrophils # (A) 5.8 k/uL (1.3-7.7); Neutrophils % (A) 69 %; Platelet Count 220 k/uL (150-450); RBC 3.88 m/uL (4.30-5.90); RDW 14.9 % (11.5-15.5); WBC 8.5 k/uL (3.8-10.6)
[2022-02-01 12:29] LABS: INR 0.9 (<1.2); Partial Thromboplastin Time 26.8 sec (22.0-30.0); Prothrombin Time 10.1 sec (9.0-12.0)
[2022-02-01 12:31] LABS: Albumin 3.6 g/dL (3.5-5.0); C Reactive Protein 0.7 mg/dL (<1.0); Calcium 8.2 mg/dL (8.4-10.2); Potassium 4.5 mmol/L (3.5-5.1); Total Bilirubin 0.6 mg/dL (0.2-1.3); Total Protein 6.7 g/dL (6.3-8.2)
[2022-02-01 13:36] LABS: Erythrocyte Sedimentation Rate 25 mm/hr (0-15)
[2022-02-01 14:40] VITALS: BP 136/63; PULSE 60
[2022-02-01] MEDS ORDERED: CEPHALEXIN 500 MG CAP PO STA (14:41)
== END 2022-02-01 14:54 | disposition home or self-care (01) ==
LOC: EC 09:43
DX: L03.116 Cellulitis of left lower limb (principal); I12.9 Hypertensive chronic kidney disease with stage 1 through stage 4 chronic kidney disease, or unspecified chronic kidney disease; E11.22 Type 2 diabetes mellitus with diabetic chronic kidney disease; N18.30 Chronic kidney disease, stage 3 unspecified; I48.91 Unspecified atrial fibrillation; I25.10 Atherosclerotic heart disease of native coronary artery without angina pectoris; J44.9 Chronic obstructive pulmonary disease, unspecified; K21.9 Gastro-esophageal reflux disease without esophagitis; E78.5 Hyperlipidemia, unspecified; M19.90 Unspecified osteoarthritis, unspecified site; E07.9 Disorder of thyroid, unspecified; Z79.02 Long term (current) use of antithrombotics/antiplatelets; Z79.4 Long term (current) use of insulin; Z85.850 Personal history of malignant neoplasm of thyroid; Z90.49 Acquired absence of other specified parts of digestive tract; Z95.1 Presence of aortocoronary bypass graft; Z87.891 Personal history of nicotine dependence
CPT/HCPCS: 36415; 80053; 83605; 85025; 85610; 85652; 85730; 86140; 87040; 87070; 87205; 99283

== ENCOUNTER → 2022-02-24 | Outpatient (CLI) | payer MEDICARE | END | disposition home or self-care (01) | LOC: LABPAT 11:53 | PROVIDERS: ATTEND Orthopaedic Surgery | DX: Z53.9 Procedure and treatment not carried out, unspecified reason (principal) ==

== ENCOUNTER → 2022-03-03 | Day surgery (SDC) | payer MEDICARE ==
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
[2022-03-02 10:38] VITALS: BMI 36.5
[~2022-03-03] MED LIST changes: +ACETAMINOPHEN TAB 500 MG TAB PO PRN; +HYDROmorphone 0.5 MG/0.5 ML SYRINGE IVP PRN; +MELOXICAM 7.5 MG TAB PO PRN; -ONDANSETRON 4 MG/2 ML VIAL IVP ONE; +ONDANSETRON 4 MG/2 ML VIAL IVP PRN; +TRANEXAMIC ACID IN NACL,ISO-OS 1,000 MG in SALINE 1 100ML.BAG IVPB PRN
[2022-03-03 06:51] VITALS: BP 144/95; PULSE 83; RESP 16; TEMP 98.3
[2022-03-03 06:57] LABS: Glucose,Whole Blood 183 mg/dL (75-99)
== END ==
LOC: OR 06:16
PROVIDERS: ATTEND Orthopaedic Surgery
DX: Z53.9 Procedure and treatment not carried out, unspecified reason (principal); M17.12 Unilateral primary osteoarthritis, left knee; E03.9 Hypothyroidism, unspecified; E11.9 Type 2 diabetes mellitus without complications; E66.9 Obesity, unspecified; I10 Essential (primary) hypertension; I48.91 Unspecified atrial fibrillation; K21.9 Gastro-esophageal reflux disease without esophagitis; Z88.6 Allergy status to analgesic agent; Z95.5 Presence of coronary angioplasty implant and graft
CPT/HCPCS: 87070; J2405

== ENCOUNTER → 2022-06-03 | Outpatient (CLI) | payer MEDICARE ==
[2022-06-03 16:31] LABS: ALT 24 U/L (10-49); AST 31 U/L (14-35); African American GFR (CKD) 30.8 (60.0-200.0); Albumin 4.2 g/dL (3.8-4.9); Albumin/Globulin Ratio 1.31 (1.60-3.17); Alkaline Phosphatase 91 U/L (41-126); BUN/Creat Ratio 19.09 Ratio (12.00-20.00); Blood Urea Nitrogen 43.9 mg/dL (9.0-27.0); Calcium 9.7 mg/dL (8.7-10.3); Carbon Dioxide 23.5 mmol/L (20.0-27.5); Chloride 105 mmol/L (96-109); Chol/HDL Ratio 3.69 Ratio; Globulin 3.2 g/dL (1.6-3.3); Glucose 125 mg/dL (70-110); LDL Cholesterol,Calculated 39.9 mg/dL (0.0-131.0); Non-African American GFR(CKD) 26.6 (60.0-200.0); Potassium 4.9 mmol/L (3.5-5.5); Sodium 142 mmol/L (135-145); Total Protein 7.4 g/dL (6.2-8.2)
== END | disposition home or self-care (01) ==
LOC: LABWHC1 09:58
PROVIDERS: ATTEND Internal Medicine Endocrinology, Diabetes & Metabolism
DX: E11.65 Type 2 diabetes mellitus with hyperglycemia (principal)
CPT/HCPCS: 36415; 80053; 80061; 82043; 82570; 83036; 84443

== ENCOUNTER 2022-06-26 02:45 | Inpatient (IN) | payer MEDICARE ==
[2022-06-26 03:08] LABS: Glucose,Whole Blood 194 mg/dL (70-110)
[2022-06-26] MEDS ORDERED: ACETAMINOPHEN TAB 325 MG TAB PO STA (03:16)
--- NOTE | 2022-06-26 03:22 | ED ---
SOB HPI - General Chief Complaint: Shortness of Breath Stated Complaint: SOB, Cough Time Seen by Provider: 06/26/22 03:00 Source: patient Mode of arrival: wheelchair Limitations: no limitations - History of Present Illness Initial Comments: This patient is a 77-year-old man who presents with complaint of shortness of breath. The patient states that he had Watson infection one year ago and since that time he has been having episodes of shortness of breath. He states that this one started getting worse probably a couple of days ago now. He also has been feeling hot and cold. He has a cough that is nonproductive. No chest pain. No leg pain or swelling. No change in urination or bowel movements. MD Complaint: shortness of breath, cough -: days(s) Consistency: constant Improves With: nothing Worsens With: nothing Known History Of: COPD Associated Symptoms: fever, cough Treatments Prior to Arrival: none - Related Data Home Medications Medication Instructions Recorded Confirmed Cetirizine HCl [Zyrtec] 10 mg PO HS 04/23/15 03/02/22 Clopidogrel [Plavix] 75 mg PO DAILY 04/23/15 03/02/22 Gabapentin [Neurontin] 800 mg PO QID PRN 04/23/15 03/02/22 Levothyroxine Sodium [Levoxyl] 200 mcg PO QAM 04/23/15 03/02/22 Melatonin 5 - 15 mg PO 04/23/15 03/02/22 Vitamin B Complex 1 cap PO DAILY 04/23/15 03/02/22 cilostazoL [Pletal] 100 mg PO BID 04/23/15 03/02/22 Atorvastatin Calcium [Lipitor] 40 mg PO 03/02/17 03/02/22 Ubidecarenone [Co Q-10] 100 mg PO DAILY 03/02/17 03/02/22 lisinopriL [Zestril] 20 mg PO BID 03/02/17 03/02/22 Ascorbic Acid [Vitamin C] 500 mg PO DAILY 03/04/17 03/02/22 Calcium Carbonate/Vitamin D3 1 tab PO BID 03/04/17 03/02/22 [Calcium 600-Vit D3 400 Caplet] Cholecalciferol [Vitamin D3] 400 unit PO DAILY 03/04/17 03/02/22 DULoxetine HCL [Cymbalta] 30 mg PO QAM 03/04/17 03/02/22 Multivit-Min/FA/Lycopen/Lutein 1 tab PO DAILY 03/04/17 03/02/22 [Centrum Silver Tablet] [place]-3 Fatty Acids/Fish Oil [Fish 1 cap PO HS 03/04/17 03/02/22 Oil 1,000 mg Softgel] Acetaminophen Tab [Tylenol Tab] 650 mg PO Q6H PRN 03/05/17 03/03/22 Insulin NPH Human Isophane 90 units SQ BID 09/25/20 03/02/22 [NovoLIN N] Insulin Regular, Human [NovoLIN R] 0 unit SQ AC-TID PRN 09/25/20 03/02/22 Sotalol [Betapace] 80 mg PO BID 09/25/20 03/02/22 rOPINIRole HCL [Requip XL] 4 mg PO HS 09/25/20 03/02/22 Apple Cider Vinegar Gummies 2 tab PO DAILY 03/02/22 03/02/22 Cephalexin [Keflex] 500 mg PO Q6HR 03/02/22 03/03/22 Previous Rx's Medication Instructions Recorded Furosemide [Lasix] 40 mg PO DAILY tab 04/26/15 Allergies Allergy/AdvReac Type Severity Reaction Status Date / Time venom-honey bee Allergy Anaphylaxis Verified 06/26/22 02:50 [bee venom (honey bee)] Rtnfoxz-FRB-QjM Reductase AdvReac Severe Muscle Verified 06/26/22 02:50 Inhibitor Cramping [Urgpyzu-Ine-Dhj Reductase Inhibitor] aspirin AdvReac Bleeding Verified 06/26/22 02:50 Ulcers grass pollen-perennial rye, AdvReac Vertigo Verified 06/26/22 02:50 standar [grass poll-perennial rye,std] mold AdvReac Vertigo Verified 06/26/22 02:50 Review of Systems ROS Statement: Those systems with pertinent positive or pertinent negative responses have been documented in the HPI. ROS Other: All systems not noted in ROS Statement are negative. Constitutional: Reports: fever, chills Respiratory: Reports: cough, dyspnea Cardiovascular: Reports: orthopnea, edema. Denies: chest pain, palpitations, syncope Gastrointestinal: Denies: abdominal pain, nausea, vomiting, diarrhea Genitourinary: Denies: dysuria, hematuria Musculoskeletal: Denies: back pain Skin: Denies: rash Neurological: Denies: headache, weakness Past Medical History Past Medical History: Atrial Fibrillation, Coronary Artery Disease (CAD), Cancer, COPD, Diabetes Mellitus, GERD/Reflux, Hyperlipidemia, Hypertension, Osteoarthritis (OA), Renal Disease, Thyroid Disorder Additional Past Medical History / Comment(s): thyroid ca, left adrenal gland cancer, arthritis lower back and knees, slightly enlarged heart, hx migranies,diverticulitis,pinched nerve in diapragm("diaphragm does not work"), pt stated " i have natrually thin blood", cellulitis couple yrs ago-has discolored legs, no cpap tested, hiatal hernia, constipation/diarrhea, IBD, stage 3 kidney disease. COVID 01/19 History of Any Multi-Drug Resistant Organisms: None Reported Past Surgical History: Cholecystectomy, Coronary Bypass/CABG, Heart Cathet erization With Stent, Tonsillectomy Additional Past Surgical History / Comment(s): thyroidectomy adrenal gland removed, 12 heart cath with 12 stents, "open heart to repair hole in heart", CABG double bypass, nasal sx for deviated septum,uvulectomy, paratyhroidectomy. Past Anesthesia/Blood Transfusion Reactions: Motion Sickness Additional Past Anesthesia/Blood Transfusion Reaction / Comment(s): claustrophobia. past blood transfusions without problems. vertigo, states he has a pinched nerve in diaphragm and "diaphragm does not work" Date of Last Stent Placement:: Past Psychological History: No Psychological Hx Reported Smoking Status: Former smoker Past Alcohol Use History: None Reported Past Drug Use History: None Reported - Past Family History Sister(s) Family Medical History: Cancer Additional Family Medical History / Comment(s): Thyroid cancer. Son(s) Family Medical History: Cancer Additional Family Medical History / Comment(s): Pancreatic cancer. Father Additional Family Medical History / Comment(s): Heart problems, . Mother Family Medical History: No Reported History General Exam Limitations: no limitations General appearance: alert, in no apparent distress Head exam: Present: atraumatic, normocephalic Eye exam: Present: normal appearance. Absent: scleral icterus, conjunctival injection Respiratory exam: Present: respiratory distress, rales (Bilateral bases), rhonchi. Absent: wheezes, stridor, accessory muscle use, decreased breath sounds Cardiovascular Exam: Present: tachycardia, systolic murmur, gallop. Absent: diastolic murmur, rubs GI/Abdominal exam: Present: soft. Absent: distended, tenderness, guarding, rebound, rigid, mass Extremities exam: Present: normal capillary refill, pedal edema. Absent: calf tenderness Back exam: Present: normal inspection Neurological exam: Present: alert Skin exam: Present: warm, dry, intact, normal color. Absent: rash Course Vital Signs 06/26/22 06/26/22 02:48 04:29 Temperature 102.9 F H 99.1 F Pulse Rate 107 H 100 Respiratory 28 H 19 Rate Blood Pressure 132/59 125/63 O2 Sat by Pulse 87 L 95 Oximetry Medical Decision Making - Medical Decision Making Patient is 77-year-old man presenting with dyspnea. He also has been having chills and suspected fever though he did not take his temperature. The workup does reveal around the infection. X-ray does show bilateral infiltrates, and the patient's room air sats have been low. When I measured them they were running between 86 and 92 on room air. - Lab Data Result diagrams: 06/26/22 03:39 06/26/22 03:39 Lab Results 06/26/22 06/26/22 06/26/22 Range/Units 03:05 03:39 03:39 WBC 12.0 H (3.8-10.6) k/uL RBC 4.10 L (4.30-5.90) m/uL Hgb 10.4 L (13.0-17.5) gm/dL Hct 33.4 L (39.0-53.0) % MCV 81.5 (80.0-100.0) fL MCH 25.3 (25.0-35.0) pg MCHC 31.1 (31.0-37.0) g/dL RDW 16.1 H (11.5-15.5) % Plt Count 203 (150-450) k/uL MPV 7.8 Neutrophils % 85 % Lymphocytes % 7 % Monocytes % 6 % Eosinophils % 0 % Basophils % 1 % Neutrophils # 10.1 H (1.3-7.7) k/uL Lymphocytes # 0.9 L (1.0-4.8) k/uL Monocytes # 0.7 (0-1.0) k/uL Eosinophils # 0.0 (0-0.7) k/uL Basophils # 0.1 (0-0.2) k/uL Hypochromasia Slight Anisocytosis Slight PT 10.5 (9.0-12.0) sec INR 1.0 (<1.2) APTT 29.0 (22.0-30.0) sec D-Dimer 0.81 H (<0.60) mg/L FEU Sodium (137-145) mmol/L Potassium (3.5-5.1) mmol/L Chloride (98-107) mmol/L Carbon Dioxide (22-30) mmol/L Anion Gap mmol/L BUN (9-20) mg/dL Creatinine (0.66-1.25) mg/dL Est GFR (CKD-EPI)AfAm (>60 ml/min/1.73 sqM) Est GFR (CKD-EPI)NonAf (>60 ml/min/1.73 sqM) Glucose (74-99) mg/dL POC Glucose (mg/dL) 194 H (70-110) mg/dL POC Glu Power Chisel Operator ID Jared Sloan Plasma Lactic Acid Artie (0.7-2.0) mmol/L Calcium (8.4-10.2) mg/dL Magnesium (1.6-2.3) mg/dL Total Bilirubin (0.2-1.3) mg/dL AST (17-59) U/L ALT (4-49) U/L Alkaline Phosphatase (38-126) U/L Troponin I (0.000-0.034) ng/mL NT-Pro-B Natriuret Pep pg/mL Total Protein (6.3-8.2) g/dL Albumin (3.5-5.0) g/dL Coronavirus (PCR) (Not Detectd) Influenza Type A RNA (Not Detectd) Influenza Type B (PCR) (Not Detectd) 06/26/22 06/26/22 06/26/22 Range/Units 03:39 03:39 03:39 WBC (3.8-10.6) k/uL RBC (4.30-5.90) m/uL Hgb (13.0-17.5) gm/dL Hct (39.0-53.0) % MCV (80.0-100.0) fL MCH (25.0-35.0) pg MCHC (31.0-37.0) g/dL RDW (11.5-15.5) % Plt Count (150-450) k/uL MPV Neutrophils % % Lymphocytes % % Monocytes % % Eosinophils % % Basophils % % Neutrophils # (1.3-7.7) k/uL Lymphocytes # (1.0-4.8) k/uL Monocytes # (0-1.0) k/uL Eosinophils # (0-0.7) k/uL Basophils # (0-0.2) k/uL Hypochromasia Anisocytosis PT (9.0-12.0) sec INR (<1.2) APTT (22.0-30.0) sec D-Dimer (<0.60) mg/L FEU Sodium 137 (137-145) mmol/L Potassium 5.2 H (3.5-5.1) mmol/L Chloride 102 (98-107) mmol/L Carbon Dioxide 22 (22-30) mmol/L Anion Gap 13 mmol/L BUN 35 H (9-20) mg/dL Creatinine 2.11 H (0.66-1.25) mg/dL Est GFR (CKD-EPI)AfAm 34 (>60 ml/min/1.73 sqM) Est GFR (CKD-EPI)NonAf 30 (>60 ml/min/1.73 sqM) Glucose 191 H (74-99) mg/dL POC Glucose (mg/dL) (70-110) mg/dL POC Glu Power Chisel Operator ID Plasma Lactic Acid Artie 1.3 (0.7-2.0) mmol/L Calcium 8.1 L (8.4-10.2) mg/dL Magnesium 1.9 (1.6-2.3) mg/dL Total Bilirubin 0.6 (0.2-1.3) mg/dL AST 31 (17-59) U/L ALT 21 (4-49) U/L Alkaline Phosphatase 90 (38-126) U/L Troponin I 0.022 (0.000-0.034) ng/mL NT-Pro-B Natriuret Pep pg/mL Total Protein 7.0 (6.3-8.2) g/dL Albumin 3.9 (3.5-5.0) g/dL Coronavirus (PCR) (Not Detectd) Influenza Type A RNA (Not Detectd) Influenza Type B (PCR) (Not Detectd) 06/26/22 06/26/22 06/26/22 Range/Units 03:39 04:00 04:00 WBC (3.8-10.6) k/uL RBC (4.30-5.90) m/uL Hgb (13.0-17.5) gm/dL Hct (39.0-53.0) % MCV (80.0-100.0) fL MCH (25.0-35.0) pg MCHC (31.0-37.0) g/dL RDW (11.5-15.5) % Plt Count (150-450) k/uL MPV Neutrophils % % Lymphocytes % % Monocytes % % Eosinophils % % Basophils % % Neutrophils # (1.3-7.7) k/uL Lymphocytes # (1.0-4.8) k/uL Monocytes # (0-1.0) k/uL Eosinophils # (0-0.7) k/uL Basophils # (0-0.2) k/uL Hypochromasia Anisocytosis PT (9.0-12.0) sec INR (<1.2) APTT (22.0-30.0) sec D-Dimer (<0.60) mg/L FEU Sodium (137-145) mmol/L Potassium (3.5-5.1) mmol/L Chloride (98-107) mmol/L Carbon Dioxide (22-30) mmol/L Anion Gap mmol/L BUN (9-20) mg/dL Creatinine (0.66-1.25) mg/dL Est GFR (CKD-EPI)AfAm (>60 ml/min/1.73 sqM) Est GFR (CKD-EPI)NonAf (>60 ml/min/1.73 sqM) Glucose (74-99) mg/dL POC Glucose (mg/dL) (70-110) mg/dL POC Glu Power Chisel Operator ID Plasma Lactic Acid Artie (0.7-2.0) mmol/L Calcium (8.4-10.2) mg/dL Magnesium (1.6-2.3) mg/dL Total Bilirubin (0.2-1.3) mg/dL AST (17-59) U/L ALT (4-49) U/L Alkaline Phosphatase (38-126) U/L Troponin I (0.000-0.034) ng/mL NT-Pro-B Natriuret Pep 449 pg/mL Total Protein (6.3-8.2) g/dL Albumin (3.5-5.0) g/dL Coronavirus (PCR) Detected A (Not Detectd) Influenza Type A RNA Not Detected (Not Detectd) Influenza Type B (PCR) Not Detected (Not Detectd) - EKG Data -: EKG Interpreted by In EKG shows normal: axis (Indeterminate), QRS complexes (Right bundle-branch block pattern.) Rate: tachycardia (Rate 127 bpm) Interpretation: nonspecific ST-T wave changes, other (Underlying rhythm is supraventricular tachycardia, possible junctional versus sinus.) Disposition Clinical Impression: COVID-19, Pneumonia Disposition: ADMITTED IP TO THIS [facility] Condition: Poor Referrals: Maria T Alvarado MD [Primary Care Provider] - 1-2 days
[2022-06-26 04:18] LABS: Anisocytosis Slight; Basophils # (A) 0.1 k/uL (0-0.2); Basophils % (A) 1 %; Eosinophils % (A) 0 %; HCT 33.4 % (39.0-53.0); HGB 10.4 gm/dL (13.0-17.5); Hypochromasia Slight; Lymphocytes # (A) 0.9 k/uL (1.0-4.8); Lymphocytes % (A) 7 %; MCH 25.3 pg (25.0-35.0); MCHC 31.1 g/dL (31.0-37.0); MCV 81.5 fL (80.0-100.0); Mean Platelet Volume 7.8; Monocytes # (A) 0.7 k/uL (0-1.0); Monocytes % (A) 6 %; Neutrophils # (A) 10.1 k/uL (1.3-7.7); Neutrophils % (A) 85 %; Platelet Count 203 k/uL (150-450); RDW 16.1 % (11.5-15.5)
[2022-06-26 04:32] LABS: Albumin 3.9 g/dL (3.5-5.0); Calcium 8.1 mg/dL (8.4-10.2); Magnesium 1.9 mg/dL (1.6-2.3); Potassium 5.2 mmol/L (3.5-5.1); Total Bilirubin 0.6 mg/dL (0.2-1.3)
[2022-06-26 04:34] LABS: Prothrombin Time 10.5 sec (9.0-12.0)
--- NOTE | 2022-06-26 06:03 | XR ---
EXAMINATION TYPE: XR chest 1V portable DATE OF EXAM: 06/26/2022 COMPARISON: 11/22/2021 HISTORY: Difficulty breathing TECHNIQUE: Single view FINDINGS: There is some infiltrate and atelectasis right lung base. No heart failure seen. There is a lso some patchy airspace infiltrate left lung base. There are sternal wires. IMPRESSION: There is bilateral lower lobe pneumonia which is mostly new compared to last exam. No hea rt failure. There is elevated right diaphragm which is increased compared to the old exam with interp osition of the hepatic flexure of the colon. There is could relate to some diaphragm paralysis.
[2022-06-26] MEDS ORDERED: PNEUMONIA PROTOCOL UTILIZED 1 EACH MISC PO PRN (07:04)
[2022-06-26] MEDS ORDERED: ALBUTEROL NEBULIZED 2.5 MG/3 ML INHALATION PRN (07:04)
[2022-06-26] MEDS ORDERED: dexAMETHasone 2 MG TAB PO STA (07:04)
[2022-06-26] MEDS: SODIUM CHLORIDE 0.9% 1,000 ML IV SCH ×2 (07:36→23:54)
[2022-06-26] MEDS: AZITHROMYCIN 500 MG TAB PO SCH (09:02)
--- NOTE | 2022-06-26 10:58 | P.CNPUL ---
History of Present Illness Consult date: 06/26/22 Requesting physician: Jesica Doran Reason for consult: dyspnea, abnormal CXR/CT Chief complaint: Shortness of breath, cough, congestion History of present illness: This is a very pleasant 77-year-old male patient who follows with Dr. Alvarado as his primary care provider. He has a history of hyperlipidemia, depression, diabetes mellitus, thyroid cancer, left adrenal gland cancer,, diabetic neur opathy, coronary artery disease with previous stent placement, atrial fibrillation, COVID-19 infection in December 2020. He had received 1 vaccine dose prior to his infection and none since that time. He did have ongoing issues with shortness of breath and was last seen in our office in May 2021. His FEV1 value was 53% of predicted. Yesterday he developed chills, cough congestion shortness of breath and presented here to the emergency room today for the same. He is seen in consultation in the emergency department. He is currently sitting up on the stretcher. Awake and alert in no acute distress. He does have a loose productive cough and presenting temperature of 102.9. He was 87% O2 saturation on room air. Chest x-ray reveals bilateral basal infiltrates. Not consistent with COVID-19 pneumonia however he did test positive for CoVID today. He is given ceftriaxone and azithromycin. Initiated on Decadron. White count 12.0. Hemoglobin 10.4. Platelets 203. Lymphocytes 0.9. D-dimer 0.81. Sodium 137. Potassium 5.2. Chloride 102. BUN 35. Creatinine 2.11. Glucose 191. AST 31. ALT 21. ProBNP 449. Influenza screen negative. Review of Systems REVIEW OF SYSTEMS: CONSTITUTIONAL: Positive for fever, chills, weakness. Denies any recent signif icant weight loss or weight gain. EYES: Denies change in vision. EARS, NOSE, MOUTH, THROAT: Denies headaches, denies sore throat. CARDIOVASCULAR: Denies chest pain, palpitations or syncopal episodes. RESPIRATORY: Positive for shortness of breath, cough, congestion no hemoptysis. GASTROINTESTINAL: Denies change in appetite, denies abdominal pain GENITOURINARY: Denies hematuria, denies infections. MUSKULOSKELETAL: Denies pain, denies swelling. INTEGUMENTARY: Denies rash, denies eczema. NEUROLOGICAL: Denies recent memory loss, no recent seizure activity. PSYCHIATRIC: Denies anxiety, denies depression. HEMATOLOGIC/LYMPHATIC: Denies anemia, denies enlarged lymph nodes. Past Medical History Past Medical History: Atrial Fibrillation, Coronary Artery Disease (CAD), Cancer, COPD, Diabetes Mellitus, GERD/Reflux, Hyperlipidemia, Hypertension, Osteoarthritis (OA), Renal Disease, Thyroid Disorder Additional Past Medical History / Comment(s): thyroid ca, left adrenal gland cancer, arthritis lower back and knees, slightly enlarged heart, hx migranies,diverticulitis,pinched nerve in diapragm("diaphragm does not work"), pt stated " i have natrually thin blood", cellulitis couple yrs ago-has discolored legs, no cpap tested, hiatal hernia, constipation/diarrhea, IBD, stage 3 kidney disease. COVID 01/19 History of Any Multi-Drug Resistant Organisms: None Reported Past Surgical History: Cholecystectomy, Coronary Bypass/CABG, Heart Catheterization With Stent, Tonsillectomy Additional Past Surgical History / Comment(s): thyroidectomy adrenal gland removed, 12 heart cath with 12 stents, "open heart to repair hole in heart", CABG double bypass, nasal sx for deviated septum,uvulectomy, paratyhroidectomy. Past Anesthesia/Blood Transfusion Reactions: Motion Sickness Additional Past Anesthesia/Blood Transfusion Reaction / Comment(s): claustrophobia. past blood transfusions without problems. vertigo, states he has a pinched nerve in diaphragm and "diaphragm does not work" Date of Last Stent Placement:: Past Psychological History: No Psychological Hx Reported Smoking Status: Former smoker Past Alcohol Use History: None Reported Past Drug Use History: None Reported - Past Family History Sister(s) Family Medical History: Cancer Additional Family Medical History / Comment(s): Thyroid cancer. Son(s) Family Medical History: Cancer Additional Family Medical History / Comment(s): Pancreatic cancer. Father Additional Family Medical History / Comment(s): Heart problems, . Mother Family Medical History: No Reported History Medications and Allergies Home Medications Medication Instructions Recorded Confirmed Type Cetirizine HCl [Zyrtec] 10 mg PO HS 04/23/15 06/26/22 History Clopidogrel [Plavix] 75 mg PO DAILY 04/23/15 06/26/22 History Gabapentin [Neurontin] 800 mg PO QID PRN 04/23/15 06/26/22 History Levothyroxine Sodium [Levoxyl] 200 mcg PO QAM 04/23/15 06/26/22 History Melatonin 15 mg PO HS 04/23/15 06/26/22 History Vitamin B Complex 1 cap PO DAILY 04/23/15 06/26/22 History cilostazoL [Pletal] 100 mg PO BID 04/23/15 06/26/22 History Furosemide [Lasix] 40 mg PO DAILY tab 04/26/15 06/26/22 Rx Atorvastatin Calcium [Lipitor] 40 mg PO HS 03/02/17 06/26/22 History Ubidecarenone [Co Q-10] 100 mg PO DAILY 03/02/17 06/26/22 History Ascorbic Acid [Vitamin C] 500 mg PO DAILY 03/04/17 06/26/22 History DULoxetine HCL [Cymbalta] 30 mg PO QAM 03/04/17 06/26/22 History Multivit-Min/FA/Lycopen/Lutein 1 tab PO DAILY 03/04/17 06/26/22 History [Centrum Silver Tablet] [place]-3 Fatty Acids/Fish Oil [Fish 1 cap PO HS 03/04/17 06/26/22 History Oil 1,000 mg Softgel] Insulin NPH Human Isophane 90 units SQ BID 09/25/20 06/26/22 History [NovoLIN N] Insulin Regular, Human [NovoLIN R] See Protocol SQ AC-TID PRN 09/25/20 06/26/22 History Sotalol [Betapace] 80 mg PO BID 09/25/20 06/26/22 History rOPINIRole HCL [Requip XL] 4 mg PO HS 09/25/20 06/26/22 History Calcium Carbonate 500 mg PO BID 06/26/22 06/26/22 History Cholecalciferol [Vitamin D3 (10 10 mcg PO DAILY 06/26/22 06/26/22 History Mcg = 400 Iu)] lisinopriL [Prinivil] 20 mg PO BID 06/26/22 06/26/22 History Allergies Allergy/AdvReac Type Severity Reaction Status Date / Time venom-honey bee Allergy Anaphylaxis Verified 06/26/22 08:17 [bee venom (honey bee)] [id number]-[id number]-BfU Reductase AdvReac Severe Muscle Verified 06/26/22 08:17 Inhibitor Cramping [Zpnblle-Ufg-Uto Reductase Inhibitor] aspirin AdvReac Bleeding Verified 06/26/22 08:17 Ulcers grass pollen-perennial rye, AdvReac Vertigo Verified 06/26/22 08:17 standar [grass poll-perennial rye,std] mold AdvReac Vertigo Verified 06/26/22 08:17 Physical Exam Vitals: Vital Signs Temp Pulse Resp BP Pulse Ox 06/26/22 07:32 84 18 111/47 92 L 06/26/22 04:29 99.1 F 100 19 125/63 95 06/26/22 02:48 102.9 F H 107 H 28 H 132/59 87 L Intake and Output 06/25/22 06/26/22 06/26/22 22:59 06:59 14:59 Other: Weight 131.542 kg GENERAL EXAM: Alert, pleasant 77-year-old male patient, on room air, fairly comfortable in no apparent distress. HEAD: Normocephalic. EYES: Normal reaction of pupils, equal size. NOSE: Clear with pink turbinates. THROAT: No erythema or exudates. NECK: No masses, no JVD. CHEST: No chest wall deformity. LUNGS: Equal air entry with bilateral scattered rhonchi. CVS: S1 and S2 normal with no audible murmur, regular rhythm. ABDOMEN: No hepatosplenomegaly, normal bowel sounds, no guarding or rigidity. SPINE: No scoliosis or deformity SKIN: No rashes CENTRAL NERVOUS SYSTEM: No focal deficits, tone is normal in all 4 extremities. EXTREMITIES: There is no peripheral edema. No clubbing, no cyanosis. Peripheral pulses are intact. Results - Laboratory Findings CBC and BMP: 06/26/22 03:39 06/26/22 03:39 PT/INR, D-dimer PT 10.5 sec (9.0-12.0) 06/26/22 03:39 INR 1.0 (<1.2) 06/26/22 03:39 D-Dimer 0.81 mg/L FEU (<0.60) H 06/26/22 03:39 Abnormal lab findings: Abnormal Labs 06/26/22 06/26/22 06/26/22 03:05 03:39 03:39 WBC 12.0 H RBC 4.10 L Hgb 10.4 L Hct 33.4 L RDW 16.1 H Neutrophils # 10.1 H Lymphocytes # 0.9 L D-Dimer 0.81 H Potassium BUN Creatinine Glucose POC Glucose (mg/dL) 194 H Calcium Coronavirus (PCR) 06/26/22 06/26/22 03:39 04:00 WBC RBC Hgb Hct RDW Neutrophils # Lymphocytes # D-Dimer Potassium 5.2 H BUN 35 H Creatinine 2.11 H Glucose 191 H POC Glucose (mg/dL) Calcium 8.1 L Coronavirus (PCR) Detected A - Diagnostic Findings Chest x-ray: image reviewed Assessment and Plan Assessment: Acute hypoxemic respiratory failure secondary to community acquired pneumonia versus CoVID pneumonia. The patient did test positive for COVID-19. However chest x-ray reveals bilateral infiltrates not consistent with COVID-19. Initiated on Skelaxin and azithromycin. Pro-calcitonin pending. Febrile illness secondary to above Mild leukocytosis Hypertension Hyperlipidemia Diabetes mellitus History of atrial fibrillation History of thyroid cancer History of left adrenal gland cancer Coronary artery disease with previous multiple stent placement, previous bypass surgery Former smoker Previous history of COVID-19 pneumonia in 2020 Plan: The patient was seen and evaluated Chest x-ray, medications and labs reviewed Suspect bacterial pneumonia versus viral pneumonia Procalcitonin pending Continue ceftriaxone and azithromycin Add bronchodilators No need for Decadron at this point Titrate the FiO2 as tolerated Follow-up chest x-ray and labs in a.m. We will continue to follow and make further recommendations based on his clinical status I have personally seen and examined the patient, performed the documentation and the assessment and plan as written. Number of minutes spent on the visit: 20.
[2022-06-26] MEDS ORDERED: GABAPENTIN 400 MG CAP PO PRN (13:35)
[2022-06-26] MEDS: IPRATROPIUM-ALBUTEROL 3 ML NEB INHALATION SCH ×2 (15:04→19:40)
[2022-06-26] MEDS ORDERED: NON FORMULARY DRUG (Omega-3 Fatty Acids/Fish Oil [Fish Oil 1,000 Mg Softgel] 1 EACH Capsul PO SCH (21:00)
[2022-06-26 21:34] LABS: Glucose,Whole Blood 279 mg/dL (70-110)
[2022-06-26] MEDS: INSULIN NPH 300 UNIT/3 ML VIAL SQ SCH (21:36)
[2022-06-26] MEDS: MELATONIN 5 MG TABLET PO SCH (21:38)
[2022-06-26] MEDS: LORATADINE 10 MG TAB PO SCH (21:38)
[2022-06-26] MEDS: cilostazoL 100 MG TAB PO SCH (21:39)
[2022-06-26] MEDS: lisinopriL 20 MG TAB PO SCH (21:39)
[2022-06-26] MEDS: CALCIUM CARBONATE 500 MG CHEWABLE PO SCH (21:39)
[2022-06-26] MEDS: SOTALOL 80 MG TAB PO SCH (21:41)
[2022-06-27] MEDS: LEVOTHYROXINE 100 MCG TAB PO SCH (05:36)
[2022-06-27] MEDS ORDERED: ALBUTEROL HFA INHALER INHALATION PRN (07:56)
[2022-06-27] MEDS: TIOTROPIUM 2.5 MCG INHALER INHALATION SCH (08:09)
[2022-06-27] MEDS: ALBUTEROL HFA INHALER INHALATION SCH ×4 (08:09→19:18)
[2022-06-27] MEDS: guaiFENesin SYRUP 100MG/5ML 200 MG/10 ML CUP PO PRN ×2 (08:47→23:24)
[2022-06-27] MEDS: SOTALOL 80 MG TAB PO SCH ×2 (08:48→21:53)
[2022-06-27] MEDS: ASCORBIC ACID 500 MG TAB PO SCH (08:48)
[2022-06-27] MEDS: lisinopriL 20 MG TAB PO SCH ×2 (08:48→21:52)
[2022-06-27] MEDS: CLOPIDOGREL 75 MG TAB PO SCH (08:48)
[2022-06-27] MEDS: MULTIVITAMINS, THERA 1 EACH TAB PO SCH (08:48)
[2022-06-27] MEDS: FUROSEMIDE 40 MG TAB PO SCH (08:48)
[2022-06-27] MEDS: CALCIUM CARBONATE 500 MG CHEWABLE PO SCH ×2 (08:48→21:52)
[2022-06-27] MEDS: CHOLECALCIFEROL 10 MCG (400 IU) TABLET PO SCH (08:49)
[2022-06-27] MEDS: cilostazoL 100 MG TAB PO SCH ×2 (08:49→21:53)
[2022-06-27] MEDS: DULoxetine HCL 30 MG CAPSULE.DR PO SCH (08:49)
[2022-06-27] MEDS: INSULIN NPH 300 UNIT/3 ML VIAL SQ SCH ×2 (08:50→21:54)
[2022-06-27] MEDS ORDERED: NON FORMULARY DRUG (Vitamin B Complex [Vitamin B Complex] 1 EACH Capsule) PO SCH (09:00)
[2022-06-27] MEDS ORDERED: NON FORMULARY DRUG (Ubidecarenone [Co Q-10] 100 MG Capsule) PO SCH (09:00)
[2022-06-27] MEDS: AZITHROMYCIN 500 MG TAB PO SCH ×2 (10:08→13:54)
--- NOTE | 2022-06-27 11:16 | P.PN ---
Subjective Progress Note Date: 06/27/22 This is a very pleasant 77-year-old male patient who follows with Dr. Alvarado as his primary care provider. He has a history of hyperlipidemia, depression, diabetes mellitus, thyroid cancer, left adrenal gland cancer,, diabetic neuropathy, coronary artery disease with previous stent placement, atrial fibr illation, COVID-19 infection in December 2020. He had received 1 vaccine dose prior to his infection and none since that time. He did have ongoing issues with shortness of breath and was last seen in our office in May 2021. His FEV1 value was 53% of predicted. Yesterday he developed chills, cough congestion shortness of breath and presented here to the emergency room today for the same. He is seen in consultation in the emergency department. He is currently sitting up on the stretcher. Awake and alert in no acute distress. He does have a loose productive cough and presenting temperature of 102.9. He was 87% O2 saturation on room air. Chest x-ray reveals bilateral basal infiltrates. Not consistent with COVID-19 pneumonia however he did test positive for CoVID today. He is given ceftriaxone and azithromycin. Initiated on Decadron. White count 12.0. Hemoglobin 10.4. Platelets 203. Lymphocytes 0.9. D-dimer 0.81. Sodium 137. Potassium 5.2. Chloride 102. BUN 35. Creatinine 2.11. Glucose 191. AST 31. ALT 21. ProBNP 449. Influenza screen negative. The patient is seen today 06/27/2022 in follow-up on the regular medical floor. He is currently sitting up in a chair at the bedside. Awake and alert in no acute distress. He is still having some dyspnea on exertion. Cough and congestion. Maintaining O2 saturations in the mid 90s on room air. He's been afebrile. Hemodynamically stable. Blood culture reveals no growth to date. He is Continued on ceftriaxone, azithromycin, bronchodilators. Objective - Vital Signs Vital signs: Vital Signs Temp 97.6 F 06/27/22 05:05 Pulse 75 06/27/22 05:05 Resp 18 06/27/22 05:05 BP 147/72 06/27/22 05:05 Pulse Ox 95 06/27/22 07:57 FiO2 Intake & Output 06/26/22 06/27/22 06/27/22 18:59 06:59 18:59 Weight 131.542 kg Other: Voiding Method Toilet - Exam GENERAL EXAM: Alert, pleasant 77-year-old male patient, on room air, fairly comfortable in no apparent distress. HEAD: Normocephalic. EYES: Normal reaction of pupils, equal size. NOSE: Clear with pink turbinates. THROAT: No erythema or exudates. NECK: No masses, no JVD. CHEST: No chest wall deformity. LUNGS: Equal air entry with bilateral scattered rhonchi. CVS: S1 and S2 normal with no audible murmur, regular rhythm. ABDOMEN: No hepatosplenomegaly, normal bowel sounds, no guarding or rigidity. SPINE: No scoliosis or deformity SKIN: No rashes CENTRAL NERVOUS SYSTEM: No focal deficits, tone is normal in all 4 extremities. EXTREMITIES: There is no peripheral edema. No clubbing, no cyanosis. Peripheral pulses are intact. - Labs CBC & Chem 7: 06/26/22 03:39 06/26/22 03:39 Labs: Abnormal Lab Results - Last 24 Hours (Table) 06/26/22 06/26/22 Range/Units 03:39 21:32 POC Glucose (mg/dL) 279 H (70-110) mg/dL Procalcitonin 0.15 H (0.02-0.09) ng/mL Microbiology - Last 24 Hours (Table) 06/26/22 04:24 Blood Culture - Preliminary Blood No Growth after 24 hours Assessment and Plan Assessment: Acute hypoxemic respiratory failure secondary to community acquired pneumonia versus CoVID pneumonia. The patient did test positive for COVID-19. However chest x-ray reveals bilateral infiltrates not consistent with COVID-19. Initiated on ceftriaxone and azithromycin. Pro-calcitonin 0.15. Febrile illness secondary to above, improved Mild leukocytosis Hypertension Hyperlipidemia Diabetes mellitus History of atrial fibrillation History of thyroid cancer History of left adrenal gland cancer Coronary artery disease with previous multiple stent placement, previous bypass surgery Former smoker Previous history of COVID-19 pneumonia in 2020 Plan: The patient was seen and evaluated Medications and labs reviewed Continue ceftriaxone and azithromycin Continue bronchodilators Follow-up chest x-ray and labs in a.m. We will continue to follow and make further recommendations based on his clinical status I have personally seen and examined the patient, performed the documentation and the assessment and plan as written. Number of minutes spent on the visit: 10.
[2022-06-27 11:43] LABS: Basophils # (A) 0.02 X 10*3/uL (0.00-0.10); Basophils % (A) 0.1 %; Eosinophils # (A) 0 X 10*3/uL (0.04-0.35); Eosinophils % (A) 0 %; HCT 32.5 % (39.6-50.0); Immature Grans, Automated 0.5 %; Lymphocytes # (A) 1.39 X 10*3/uL (0.90-5.00); Lymphocytes % (A) 9.1 %; MCH 24.9 pg (27.0-32.0); MCHC 30.8 g/dL (32.0-37.0); MCV 80.8 fL (80.0-97.0); Mean Platelet Volume 9.8 fL (9.5-12.2); Monocytes # (A) 1.12 X 10*3/uL (0.20-1.00); Monocytes % (A) 7.3 %; NRBC Per 100 WBC 0 /100 WBCS (0.0-0.0); Neutrophils # (A) 12.68 X 10*3/uL (1.80-7.70); Platelet Count 212 X 10*3/uL (140-440); RBC 4.02 X 10*6/uL (4.40-5.60); RDW 16.5 % (11.5-14.5); WBC 15.28 X 10*3/uL (4.50-10.00)
[2022-06-27 11:46] LABS: African American GFR (CKD) 34.4 (60.0-200.0); Albumin 3.9 g/dL (3.8-4.9); Albumin/Globulin Ratio 1.34 (1.60-3.17); Anion Gap 11.8 mmol/L (10.00-18.00); Calcium 8.2 mg/dL (8.7-10.3); Carbon Dioxide 21.2 mmol/L (20.0-27.5); Globulin 2.9 g/dL (1.6-3.3); Non-African American GFR(CKD) 29.7 (60.0-200.0); Potassium 4.9 mmol/L (3.5-5.5); Total Bilirubin 0.3 mg/dL (0.30-1.20); Total Protein 6.8 g/dL (6.2-8.2)
[2022-06-27 11:51] LABS: Glucose,Whole Blood 318 mg/dL (70-110)
--- NOTE | 2022-06-27 12:50 | P.HPIM ---
History of Present Illness H&P Date: 06/26/22 Abhi Posadas, he is a 77-year-old male who presented to [facility] emergency room with a chief complaint of cough and shortness of breath He was evaluated in the emergency room vital examination on presentation revealed a temperature of 102.9 pulse 107 respiration 28 blood pressure 132/59 pulse ox 87% on room air Laboratory data reveals a white blood count of 12.0 hemoglobin 10.4 platelet count 203 BUN 35 creatinine 2.11 Testing in the emergency room revealed chest x-ray done in the emergency room revealed patchy air space disease in the left base Patient was admitted to medical floor for further evaluation and treatment Past medical history is significant for history of diabetes mellitus, history of coronary artery disease with previous history of coronary artery bypass graft surgery, history of hypertension, history of hyperlipidemia, history of atrial fibrillation, he had a previous history of hospitalization for COVID-19 pneumonia in December 2020 he was hospitalized at [facility] at that time and had a prolonged illness. On review of systems patient is alert and oriented 3 in no apparent distress he is complaining of cough and shortness of breath otherwise he denies any complaints there is no chills no headache or dizziness no chest pain no nausea or vomiting no abdominal pain no diarrhea no blood in the stools no burning with urination no frequency or urgency and no hematuria Past Medical History Past Medical History: Atrial Fibrillation, Coronary Artery Disease (CAD), Cancer, COPD, Diabetes Mellitus, GERD/Reflux, Hyperlipidemia, Hypertension, Osteoarthritis (OA), Renal Disease, Thyroid Disorder Additional Past Medical History / Comment(s): thyroid ca, left adrenal gland c ancer, arthritis lower back and knees, slightly enlarged heart, hx migranies,diverticulitis,pinched nerve in diapragm("diaphragm does not work"), pt stated " i have natrually thin blood", cellulitis couple yrs ago-has discolored legs, no cpap tested, hiatal hernia, constipation/diarrhea, IBD, stage 3 kidney disease. COVID 01/19 History of Any Multi-Drug Resistant Organisms: None Reported Past Surgical History: Cholecystectomy, Coronary Bypass/CABG, Heart Catheterization With Stent, Tonsillectomy Additional Past Surgical History / Comment(s): thyroidectomy adrenal gland removed, 12 heart cath with 12 stents, "open heart to repair hole in heart", CABG double bypass, nasal sx for deviated septum,uvulectomy, paratyhroidectomy. Past Anesthesia/Blood Transfusion Reactions: Motion Sickness Additional Past Anesthesia/Blood Transfusion Reaction / Comment(s): claustrophobia. past blood transfusions without problems. vertigo, states he has a pinched nerve in diaphragm and "diaphragm does not work" Date of Last Stent Placement:: Past Psychological History: No Psychological Hx Reported Smoking Status: Former smoker Past Alcohol Use History: None Reported Past Drug Use History: None Reported - Past Family History Sister(s) Family Medical History: Cancer Additional Family Medical History / Comment(s): Thyroid cancer. Son(s) Family Medical History: Cancer Additional Family Medical History / Comment(s): Pancreatic cancer. Father Additional Family Medical History / Comment(s): Heart problems, . Mother Family Medical History: No Reported History Medications and Allergies Home Medications Medication Instructions Recorded Confirmed Type Cetirizine HCl [Zyrtec] 10 mg PO HS 04/23/15 06/26/22 History Clopidogrel [Plavix] 75 mg PO DAILY 04/23/15 06/26/22 History Gabapentin [Neurontin] 800 mg PO QID PRN 04/23/15 06/26/22 History Levothyroxine Sodium [Levoxyl] 200 mcg PO QAM 04/23/15 06/26/22 History Melatonin 15 mg PO HS 04/23/15 06/26/22 History Vitamin B Complex 1 cap PO DAILY 04/23/15 06/26/22 History cilostazoL [Pletal] 100 mg PO BID 04/23/15 06/26/22 History Furosemide [Lasix] 40 mg PO DAILY tab 04/26/15 06/26/22 Rx Atorvastatin Calcium [Lipitor] 40 mg PO HS 03/02/17 06/26/22 History Ubidecarenone [Co Q-10] 100 mg PO DAILY 03/02/17 06/26/22 History Ascorbic Acid [Vitamin C] 500 mg PO DAILY 03/04/17 06/26/22 History DULoxetine HCL [Cymbalta] 30 mg PO QAM 03/04/17 06/26/22 History Multivit-Min/FA/Lycopen/Lutein 1 tab PO DAILY 03/04/17 06/26/22 History [Centrum Silver Tablet] Granger-3 Fatty Acids/Fish Oil [Fish 1 cap PO HS 03/04/17 06/26/22 History Oil 1,000 mg Softgel] Insulin NPH Human Isophane 90 units SQ BID 09/25/20 06/26/22 History [NovoLIN N] Insulin Regular, Human [NovoLIN R] See Protocol SQ AC-TID PRN 09/25/20 06/26/22 History Sotalol [Betapace] 80 mg PO BID 09/25/20 06/26/22 History rOPINIRole HCL [Requip XL] 4 mg PO HS 09/25/20 06/26/22 History Calcium Carbonate 500 mg PO BID 06/26/22 06/26/22 History Cholecalciferol [Vitamin D3 (10 10 mcg PO DAILY 06/26/22 06/26/22 History Mcg = 400 Iu)] lisinopriL [Prinivil] 20 mg PO BID 06/26/22 06/26/22 History Allergies Allergy/AdvReac Type Severity Reaction Status Date / Time venom-honey bee Allergy Anaphylaxis Verified 06/26/22 08:17 [bee venom (honey bee)] [id number]-WuA Reductase AdvReac Severe Muscle Verified 06/26/22 08:17 Inhibitor Cramping [Spbixqh-Pfv-Vgc Reductase Inhibitor] aspirin AdvReac Bleeding Verified 06/26/22 08:17 Ulcers grass pollen-perennial rye, AdvReac Vertigo Verified 06/26/22 08:17 standar [grass poll-perennial rye,std] mold AdvReac Vertigo Verified 06/26/22 08:17 Physical Exam Vitals: Vital Signs Temp Pulse Resp BP Pulse Ox 06/26/22 12:31 86 20 120/66 92 L 06/26/22 07:32 84 18 111/47 92 L 06/26/22 04:29 99.1 F 100 19 125/63 95 06/26/22 02:48 102.9 F H 107 H 28 H 132/59 87 L Intake and Output 06/25/22 06/26/22 06/26/22 22:59 06:59 14:59 Other: Weight 131.542 kg In general patient is alert and oriented x 3 in no distress HEENT head normocephalic and atraumatic Neck is supple no JVD no goiter no lymphadenopathy no carotid bruit Chest examination reveals a crackles in both lung bases no wheezing Cardiac exam reveals regular heart sounds S1 and S2 no gallops no murmurs, with tachycardia Abdomen is soft nontender no organomegaly with normal bowel sounds Extremity exam reveals no edema no cyanosis or clubbing Neurological examination reveals no gross focal deficits Results CBC & Chem 7: 06/27/22 07:09 06/27/22 07:09 Labs: Abnormal Lab Results - Last 24 Hours (Table) 06/26/22 06/26/22 06/26/22 Range/Units 03:05 03:39 03:39 WBC 12.0 H (3.8-10.6) k/uL RBC 4.10 L (4.30-5.90) m/uL Hgb 10.4 L (13.0-17.5) gm/dL Hct 33.4 L (39.0-53.0) % RDW 16.1 H (11.5-15.5) % Neutrophils # 10.1 H (1.3-7.7) k/uL Lymphocytes # 0.9 L (1.0-4.8) k/uL D-Dimer 0.81 H (<0.60) mg/L FEU Potassium (3.5-5.1) mmol/L BUN (9-20) mg/dL Creatinine (0.66-1.25) mg/dL Glucose (74-99) mg/dL POC Glucose (mg/dL) 194 H (70-110) mg/dL Calcium (8.4-10.2) mg/dL Coronavirus (PCR) (Not Detectd) 06/26/22 06/26/22 Range/Units 03:39 04:00 WBC (3.8-10.6) k/uL RBC (4.30-5.90) m/uL Hgb (13.0-17.5) gm/dL Hct (39.0-53.0) % RDW (11.5-15.5) % Neutrophils # (1.3-7.7) k/uL Lymphocytes # (1.0-4.8) k/uL D-Dimer (<0.60) mg/L FEU Potassium 5.2 H (3.5-5.1) mmol/L BUN 35 H (9-20) mg/dL Creatinine 2.11 H (0.66-1.25) mg/dL Glucose 191 H (74-99) mg/dL POC Glucose (mg/dL) (70-110) mg/dL Calcium 8.1 L (8.4-10.2) mg/dL Coronavirus (PCR) Detected A (Not Detectd) Assessment and Plan Plan: Left lower lobe pneumonia, related to community-acquired pneumonia versus acute coronary pneumonia, patient started on IV antibiotic ceftriaxone and Zithromax in the emergency room Acute hypoxic respiratory failure Underlying history of coronary artery disease Underlying history of COPD Underlying history of coronary artery disease Underlying history of diabetes mellitus Underlying history of hypertension Underlying history of hyperlipidemia At this time patient is admitted to medical floor he was started on IV fluid, IV antibiotic, oxygen supplements, home medications reviewed and reordered Pulmonary consultation requested will follow closely
--- NOTE | 2022-06-27 13:11 | P.PN ---
Subjective Progress Note Date: 06/27/22 Abhi Posadas, he is a 77-year-old male who presented to [facility] emergency room with a chief complaint of cough and shortness of breath He was evaluated in the emergency room vital examination on presentation revealed a temperature of 102.9 pulse 107 respiration 28 blood pressure 132/59 pulse ox 87% on room air Laboratory data reveals a white blood count of 12.0 hemoglobin 10.4 platelet count 203 BUN 35 creatinine 2.11 Testing in the emergency room revealed chest x-ray done in the emergency room revealed patchy air space disease in the left base Patient was admitted to medical floor for further evaluation and treatment Past medical history is significant for history of diabetes mellitus, history of coronary artery disease with previous history of coronary artery bypass graft surgery, history of hypertension, history of hyperlipidemia, history of atrial fibrillation, he had a previous history of hospitalization for COVID-19 pneumonia in December 2020 he was hospitalized at [facility] at that time and had a prolonged illness. On review of systems patient is alert and oriented 3 in no apparent distress he is complaining of cough and shortness of breath otherwise he denies any complaints there is no chills no headache or dizziness no chest pain no nausea or vomiting no abdominal pain no diarrhea no blood in the stools no burning with urination no frequency or urgency and no hematuria On 06/27/2022 patient was seen and examined on the medical floor, he is alert and oriented 3 in no apparent distress he is complaining of cough and difficulty sleeping at night otherwise he denies any complaints there is no fever or chills no headache or dizziness no chest pain no shortness of breath at rest he has some shortness of breath when he tries to walk there is no nausea or vomiting no abdominal pain no diarrhea no blood in the stools no burning with urination no frequency or urgency and no hematuria Objective - Vital Signs Vital signs: Vital Signs Temp 97.7 F 06/27/22 10:42 Pulse 79 06/27/22 10:42 Resp 14 06/27/22 10:42 BP 146/71 06/27/22 10:42 Pulse Ox 95 06/27/22 10:42 FiO2 Intake & Output 06/26/22 06/27/22 06/27/22 18:59 06:59 18:59 Weight 131.542 kg Other: Voiding Method Toilet - Exam In general patient is alert and oriented x 3 in no distress HEENT head normocephalic and atraumatic Neck is supple no JVD no goiter no lymphadenopathy no carotid bruit Chest examination reveals a crackles in both lung bases no wheezing Cardiac exam reveals regular heart sounds S1 and S2 no gallops no murmurs, with tachycardia Abdomen is soft nontender no organomegaly with normal bowel sounds Extremity exam reveals no edema no cyanosis or clubbing Neurological examination reveals no gross focal deficits - Labs CBC & Chem 7: 06/27/22 07:09 06/27/22 07:09 Labs: Abnormal Lab Results - Last 24 Hours (Table) 06/26/22 06/26/22 06/27/22 Range/Units 03:39 21:32 07:09 WBC 15.28 H (4.50-10.00) X 10*3/uL RBC 4.02 L (4.40-5.60) X 10*6/uL Hgb 10.0 L (13.0-17.0) g/dL Hct 32.5 L (39.6-50.0) % MCH 24.9 L (27.0-32.0) pg MCHC 30.8 L (32.0-37.0) g/dL RDW 16.5 H (11.5-14.5) % Immature Gran # 0.07 H (0.00-0.04) X 10*3/uL Neutrophils # 12.68 H (1.80-7.70) X 10*3/uL Monocytes # 1.12 H (0.20-1.00) X 10*3/uL Eosinophils # 0 L (0.04-0.35) X 10*3/uL BUN (9.0-27.0) mg/dL Creatinine (0.6-1.5) mg/dL Est GFR (CKD-EPI)AfAm (60.0-200.0) Est GFR (CKD-EPI)NonAf (60.0-200.0) Glucose (70-110) mg/dL POC Glucose (mg/dL) 279 H (70-110) mg/dL Calcium (8.7-10.3) mg/dL AST (14-35) U/L Albumin/Globulin Ratio (1.60-3.17) g/dL Procalcitonin 0.15 H (0.02-0.09) ng/mL 06/27/22 06/27/22 Range/Units 07:09 11:49 WBC (4.50-10.00) X 10*3/uL RBC (4.40-5.60) X 10*6/uL Hgb (13.0-17.0) g/dL Hct (39.6-50.0) % MCH (27.0-32.0) pg MCHC (32.0-37.0) g/dL RDW (11.5-14.5) % Immature Gran # (0.00-0.04) X 10*3/uL Neutrophils # (1.80-7.70) X 10*3/uL Monocytes # (0.20-1.00) X 10*3/uL Eosinophils # (0.04-0.35) X 10*3/uL BUN 42.0 H (9.0-27.0) mg/dL Creatinine 2.1 H (0.6-1.5) mg/dL Est GFR (CKD-EPI)AfAm 34.4 L (60.0-200.0) Est GFR (CKD-EPI)NonAf 29.7 L (60.0-200.0) Glucose 230 H (70-110) mg/dL POC Glucose (mg/dL) 318 H (70-110) mg/dL Calcium 8.2 L (8.7-10.3) mg/dL AST 36 H (14-35) U/L Albumin/Globulin Ratio 1.34 L (1.60-3.17) g/dL Procalcitonin (0.02-0.09) ng/mL Microbiology - Last 24 Hours (Table) 06/26/22 04:24 Blood Culture - Preliminary Blood No Growth after 24 hours Assessment and Plan Plan: Left lower lobe pneumonia, related to community-acquired pneumonia versus acute coronary pneumonia, patient started on IV antibiotic ceftriaxone and Zithromax in the emergency room Acute hypoxic respiratory failure Underlying history of coronary artery disease Underlying history of COPD Underlying history of coronary artery disease Underlying history of diabetes mellitus Underlying history of hypertension Underlying history of hyperlipidemia Difficulty sleeping at night patient requesting a sleeping pill At this time patient is admitted to medical floor he was started on IV fluid, IV antibiotic, oxygen supplements, home medications reviewed and reordered Pulmonary consultation requested will follow closely
[2022-06-27 16:50] LABS: Glucose,Whole Blood 247 mg/dL (70-110)
[2022-06-27 20:14] LABS: Glucose,Whole Blood 183 mg/dL (70-110)
[2022-06-27] MEDS: MELATONIN 5 MG TABLET PO SCH (21:52)
[2022-06-27] MEDS: LORATADINE 10 MG TAB PO SCH (21:53)
[2022-06-27] MEDS: ZOLPIDEM 5 MG TAB PO PRN (23:24)
[2022-06-27] MEDS: BENZOCAINE/MENTHOL LOZENG 1 EACH LOZENGE MUCOUS MEM PRN (23:28)
[2022-06-28] MEDS: LEVOTHYROXINE 100 MCG TAB PO SCH (06:06)
[2022-06-28] MEDS: ALBUTEROL HFA INHALER INHALATION SCH ×4 (07:27→20:06)
[2022-06-28] MEDS: TIOTROPIUM 2.5 MCG INHALER INHALATION SCH (07:28)
--- NOTE | 2022-06-28 07:36 | XR ---
EXAMINATION TYPE: XR chest 1V DATE OF EXAM: 06/28/2022 6:17 AM COMPARISON: Chest radiographs from 06/26/2022 TECHNIQUE: XR chest 1V Frontal view of the chest. CLINICAL INDICATION:Male, 77 years old with history of pneumonia; FINDINGS: Lungs/Pleura: Low lung volumes are present. There is no evidence of pleural effusion, focal consolida tion, or pneumothorax. Pulmonary vascularity: Unremarkable. Heart/mediastinum: Cardiomediastinal silhouette is unremarkable. Musculoskeletal: No acute osseous pathology. Midline sternotomy wires are noted. IMPRESSION: Low lung volumes with a generalized hazy appearance which could represent atelectasis versus pulmonar y edema correlate with serum BNP.
[2022-06-28 07:40] LABS: Glucose,Whole Blood 45 mg/dL (70-110)
[2022-06-28 07:40] LABS: Glucose,Whole Blood 42 mg/dL (70-110)
[2022-06-28 08:10] LABS: Glucose,Whole Blood 55 mg/dL (70-110)
[2022-06-28] MEDS: MULTIVITAMINS, THERA 1 EACH TAB PO SCH (08:27)
[2022-06-28] MEDS: AZITHROMYCIN 500 MG TAB PO SCH (08:27)
[2022-06-28] MEDS: cilostazoL 100 MG TAB PO SCH ×2 (08:27→21:59)
[2022-06-28] MEDS: DULoxetine HCL 30 MG CAPSULE.DR PO SCH (08:27)
[2022-06-28] MEDS: lisinopriL 20 MG TAB PO SCH ×2 (08:27→21:59)
[2022-06-28] MEDS: CALCIUM CARBONATE 500 MG CHEWABLE PO SCH ×2 (08:27→21:59)
[2022-06-28] MEDS: CHOLECALCIFEROL 10 MCG (400 IU) TABLET PO SCH (08:27)
[2022-06-28] MEDS: SOTALOL 80 MG TAB PO SCH ×2 (08:27→21:59)
[2022-06-28] MEDS: ASCORBIC ACID 500 MG TAB PO SCH (08:28)
[2022-06-28] MEDS: FUROSEMIDE 40 MG TAB PO SCH (08:28)
[2022-06-28] MEDS: INSULIN NPH 300 UNIT/3 ML VIAL SQ SCH ×2 (08:28→22:00)
[2022-06-28] MEDS: CLOPIDOGREL 75 MG TAB PO SCH (08:28)
[2022-06-28] MEDS: SODIUM CHLORIDE 0.9% 1,000 ML IV SCH (08:29)
[2022-06-28 08:31] LABS: Glucose,Whole Blood 34 mg/dL (70-110)
[2022-06-28 08:34] LABS: Glucose,Whole Blood 36 mg/dL (70-110)
[2022-06-28 08:44] LABS: Glucose,Whole Blood 42 mg/dL (70-110)
[2022-06-28] MEDS ORDERED: DEXTROSE 50% SYRINGE 50 ML IVP ONE (08:44)
[2022-06-28 09:38] LABS: Glucose,Whole Blood 157 mg/dL (70-110)
--- NOTE | 2022-06-28 11:03 | P.PN ---
Subjective Progress Note Date: 06/28/22 This is a very pleasant 77-year-old male patient who follows with Dr. Alvarado as his primary care provider. He has a history of hyperlipidemia, depression, diabetes mellitus, thyroid cancer, left adrenal gland cancer,, diabetic neuropathy, coronary artery disease with previous stent placement, atrial fibr illation, COVID-19 infection in December 2020. He had received 1 vaccine dose prior to his infection and none since that time. He did have ongoing issues with shortness of breath and was last seen in our office in May 2021. His FEV1 value was 53% of predicted. Yesterday he developed chills, cough congestion shortness of breath and presented here to the emergency room today for the same. He is seen in consultation in the emergency department. He is currently sitting up on the stretcher. Awake and alert in no acute distress. He does have a loose productive cough and presenting temperature of 102.9. He was 87% O2 saturation on room air. Chest x-ray reveals bilateral basal infiltrates. Not consistent with COVID-19 pneumonia however he did test positive for CoVID today. He is given ceftriaxone and azithromycin. Initiated on Decadron. White count 12.0. Hemoglobin 10.4. Platelets 203. Lymphocytes 0.9. D-dimer 0.81. Sodium 137. Potassium 5.2. Chloride 102. BUN 35. Creatinine 2.11. Glucose 191. AST 31. ALT 21. ProBNP 449. Influenza screen negative. The patient is seen today 06/27/2022 in follow-up on the regular medical floor. He is currently sitting up in a chair at the bedside. Awake and alert in no acute distress. He is still having some dyspnea on exertion. Cough and congestion. Maintaining O2 saturations in the mid 90s on room air. He's been afebrile. Hemodynamically stable. Blood culture reveals no growth to date. He is Continued on ceftriaxone, azithromycin, bronchodilators. Patient seen today 06/28/2022 in follow-up on the regular medical floor. He is awake and alert in no acute distress. Currently sitting up in a chair at the bedside. Still with some congestion and cough. He is maintaining O2 saturations in the 90s on 2 L/m per nasal cannula. Normal saline at 20 ML's per hour. Follow-up chest x-ray reveals some improved lung volumes with consistent atelectasis versus pulmonary edema of the lower lung bases. A culture reveals no growth to date. Sputum culture pending. Blood glucose 157. He is continued on ceftriaxone and azithromycin along with albuterol and Spiriva. Objective - Vital Signs Vital signs: Vital Signs Temp 97.4 F L 06/28/22 02:00 Pulse 67 06/28/22 10:28 Resp 14 06/28/22 10:28 BP 115/73 06/28/22 10:28 Pulse Ox 97 06/28/22 10:28 FiO2 Intake & Output 06/27/22 06/28/22 06/28/22 18:59 06:59 18:59 Other: Voiding Method Toilet # Voids 8 2 # Bowel Movements 1 - Exam GENERAL EXAM: Alert, pleasant 77-year-old male patient, on 2 L nasal cannula, fairly comfortable in no apparent distress. HEAD: Normocephalic. EYES: Normal reaction of pupils, equal size. NOSE: Clear with pink turbinates. THROAT: No erythema or exudates. NECK: No masses, no JVD. CHEST: No chest wall deformity. LUNGS: Equal air entry with bilateral scattered rhonchi. CVS: S1 and S2 normal with no audible murmur, regular rhythm. ABDOMEN: No hepatosplenomegaly, normal bowel sounds, no guarding or rigidity. SPINE: No scoliosis or deformity SKIN: No rashes CENTRAL NERVOUS SYSTEM: No focal deficits, tone is normal in all 4 extremities. EXTREMITIES: There is no peripheral edema. No clubbing, no cyanosis. Peripheral pulses are intact. - Labs CBC & Chem 7: 06/27/22 07:09 06/27/22 07:09 Labs: Abnormal Lab Results - Last 24 Hours (Table) 06/27/22 06/27/22 06/27/22 Range/Units 07:09 07:09 11:49 WBC 15.28 H (4.50-10.00) X 10*3/uL RBC 4.02 L (4.40-5.60) X 10*6/uL Hgb 10.0 L (13.0-17.0) g/dL Hct 32.5 L (39.6-50.0) % MCH 24.9 L (27.0-32.0) pg MCHC 30.8 L (32.0-37.0) g/dL RDW 16.5 H (11.5-14.5) % Immature Gran # 0.07 H (0.00-0.04) X 10*3/uL Neutrophils # 12.68 H (1.80-7.70) X 10*3/uL Monocytes # 1.12 H (0.20-1.00) X 10*3/uL Eosinophils # 0 L (0.04-0.35) X 10*3/uL D-Dimer (<0.60) mg/L FEU BUN 42.0 H (9.0-27.0) mg/dL Creatinine 2.1 H (0.6-1.5) mg/dL Est GFR (CKD-EPI)AfAm 34.4 L (60.0-200.0) Est GFR (CKD-EPI)NonAf 29.7 L (60.0-200.0) Glucose 230 H (70-110) mg/dL POC Glucose (mg/dL) 318 H (70-110) mg/dL Calcium 8.2 L (8.7-10.3) mg/dL AST 36 H (14-35) U/L Albumin/Globulin Ratio 1.34 L (1.60-3.17) g/dL 06/27/22 06/27/22 06/27/22 Range/Units 12:11 16:49 20:10 WBC (4.50-10.00) X 10*3/uL RBC (4.40-5.60) X 10*6/uL Hgb (13.0-17.0) g/dL Hct (39.6-50.0) % MCH (27.0-32.0) pg MCHC (32.0-37.0) g/dL RDW (11.5-14.5) % Immature Gran # (0.00-0.04) X 10*3/uL Neutrophils # (1.80-7.70) X 10*3/uL Monocytes # (0.20-1.00) X 10*3/uL Eosinophils # (0.04-0.35) X 10*3/uL D-Dimer 0.64 H (<0.60) mg/L FEU BUN (9.0-27.0) mg/dL Creatinine (0.6-1.5) mg/dL Est GFR (CKD-EPI)AfAm (60.0-200.0) Est GFR (CKD-EPI)NonAf (60.0-200.0) Glucose (70-110) mg/dL POC Glucose (mg/dL) 247 H 183 H (70-110) mg/dL Calcium (8.7-10.3) mg/dL AST (14-35) U/L Albumin/Globulin Ratio (1.60-3.17) g/dL 06/28/22 06/28/22 06/28/22 Range/Units 07:37 07:38 08:08 WBC (4.50-10.00) X 10*3/uL RBC (4.40-5.60) X 10*6/uL Hgb (13.0-17.0) g/dL Hct (39.6-50.0) % MCH (27.0-32.0) pg MCHC (32.0-37.0) g/dL RDW (11.5-14.5) % Immature Gran # (0.00-0.04) X 10*3/uL Neutrophils # (1.80-7.70) X 10*3/uL Monocytes # (0.20-1.00) X 10*3/uL Eosinophils # (0.04-0.35) X 10*3/uL D-Dimer (<0.60) mg/L FEU BUN (9.0-27.0) mg/dL Creatinine (0.6-1.5) mg/dL Est GFR (CKD-EPI)AfAm (60.0-200.0) Est GFR (CKD-EPI)NonAf (60.0-200.0) Glucose (70-110) mg/dL POC Glucose (mg/dL) 45 L 42 L 55 L (70-110) mg/dL Calcium (8.7-10.3) mg/dL AST (14-35) U/L Albumin/Globulin Ratio (1.60-3.17) g/dL 06/28/22 06/28/22 06/28/22 Range/Units 08:29 08:32 08:42 WBC (4.50-10.00) X 10*3/uL RBC (4.40-5.60) X 10*6/uL Hgb (13.0-17.0) g/dL Hct (39.6-50.0) % MCH (27.0-32.0) pg MCHC (32.0-37.0) g/dL RDW (11.5-14.5) % Immature Gran # (0.00-0.04) X 10*3/uL Neutrophils # (1.80-7.70) X 10*3/uL Monocytes # (0.20-1.00) X 10*3/uL Eosinophils # (0.04-0.35) X 10*3/uL D-Dimer (<0.60) mg/L FEU BUN (9.0-27.0) mg/dL Creatinine (0.6-1.5) mg/dL Est GFR (CKD-EPI)AfAm (60.0-200.0) Est GFR (CKD-EPI)NonAf (60.0-200.0) Glucose (70-110) mg/dL POC Glucose (mg/dL) 34 L 36 L 42 L (70-110) mg/dL Calcium (8.7-10.3) mg/dL AST (14-35) U/L Albumin/Globulin Ratio (1.60-3.17) g/dL 06/28/22 Range/Units 09:36 WBC (4.50-10.00) X 10*3/uL RBC (4.40-5.60) X 10*6/uL Hgb (13.0-17.0) g/dL Hct (39.6-50.0) % MCH (27.0-32.0) pg MCHC (32.0-37.0) g/dL RDW (11.5-14.5) % Immature Gran # (0.00-0.04) X 10*3/uL Neutrophils # (1.80-7.70) X 10*3/uL Monocytes # (0.20-1.00) X 10*3/uL Eosinophils # (0.04-0.35) X 10*3/uL D-Dimer (<0.60) mg/L FEU BUN (9.0-27.0) mg/dL Creatinine (0.6-1.5) mg/dL Est GFR (CKD-EPI)AfAm (60.0-200.0) Est GFR (CKD-EPI)NonAf (60.0-200.0) Glucose (70-110) mg/dL POC Glucose (mg/dL) 157 H (70-110) mg/dL Calcium (8.7-10.3) mg/dL AST (14-35) U/L Albumin/Globulin Ratio (1.60-3.17) g/dL Microbiology - Last 24 Hours (Table) 06/27/22 08:18 Gram Stain - Preliminary Sputum Sputum Culture - Preliminary 06/26/22 04:24 Blood Culture - Preliminary Blood No Growth after 48 hours Assessment and Plan Assessment: Acute hypoxemic respiratory failure secondary to community acquired pneumonia versus CoVID pneumonia. The patient did test positive for COVID-19. However chest x-ray reveals bilateral infiltrates not consistent with COVID-19. Initiated on ceftriaxone and azithromycin. Pro-calcitonin 0.15. Febrile illness secondary to above, improved Mild leukocytosis Hypertension Hyperlipidemia Diabetes mellitus History of atrial fibrillation History of thyroid cancer History of left adrenal gland cancer Coronary artery disease with previous multiple stent placement, previous bypass surgery Former smoker Previous history of COVID-19 pneumonia in 2020 Plan: The patient was seen and evaluated Medications and labs reviewed Continue ceftriaxone and azithromycin Continue bronchodilators Educated the FiO2 as tolerated Increase his activity as tolerated We will continue to follow I have personally seen and examined the patient, performed the documentation and the assessment and plan as written. Number of minutes spent on the visit: 10.
--- NOTE | 2022-06-28 11:44 | P.PN ---
Subjective Progress Note Date: 06/28/22 Abhi Posadas, shiv is a 77-year-old male who presented to [facility] emergency room with a chief complaint of cough and shortness of breath He was evaluated in the emergency room vital examination on presentation revealed a temperature of 102.9 pulse 107 respiration 28 blood pressure 132/59 pulse ox 87% on room air Laboratory data reveals a white blood count of 12.0 hemoglobin 10.4 platelet count 203 BUN 35 creatinine 2.11 Testing in the emergency room revealed chest x-ray done in the emergency room revealed patchy air space disease in the left base Patient was admitted to medical floor for further evaluation and treatment Past medical history is significant for history of diabetes mellitus, history of coronary artery disease with previous history of coronary artery bypass graft surgery, history of hypertension, history of hyperlipidemia, history of atrial fibrillation, he had a previous history of hospitalization for COVID-19 pneumonia in December 2020 he was hospitalized at [facility] at that time and had a prolonged illness. On review of systems patient is alert and oriented 3 in no apparent distress he is complaining of cough and shortness of breath otherwise he denies any complaints there is no chills no headache or dizziness no chest pain no nausea or vomiting no abdominal pain no diarrhea no blood in the stools no burning with urination no frequency or urgency and no hematuria On 06/27/2022 patient was seen and examined on the medical floor, he is alert and oriented 3 in no apparent distress he is complaining of cough and difficulty sleeping at night otherwise he denies any complaints there is no fever or chills no headache or dizziness no chest pain no shortness of breath at rest he has some shortness of breath when he tries to walk there is no nausea or vomiting no abdominal pain no diarrhea no blood in the stools no burning with urination no frequency or urgency and no hematuria On 06/28/2022 patient was seen and examined on the medical floor he is alert and oriented 3 in no apparent distress he is complaining of sore throat otherwise he denies any complaints there is no fever or chills no headache or dizziness no chest pain no shortness of breath no cough no nausea or vomiting no abdominal pain no diarrhea and no urinary symptoms Objective - Vital Signs Vital signs: Vital Signs Temp 97.4 F L 06/28/22 02:00 Pulse 67 06/28/22 10:28 Resp 14 06/28/22 10:28 BP 115/73 06/28/22 10:28 Pulse Ox 97 06/28/22 10:28 FiO2 Intake & Output 06/27/22 06/28/22 06/28/22 18:59 06:59 18:59 Other: Voiding Method Toilet # Voids 8 2 # Bowel Movements 1 - Exam In general patient is alert and oriented x 3 in no distress HEENT head normocephalic and atraumatic Neck is supple no JVD no goiter no lymphadenopathy no carotid bruit Chest examination reveals a crackles in both lung bases no wheezing Cardiac exam reveals regular heart sounds S1 and S2 no gallops no murmurs, with tachycardia Abdomen is soft nontender no organomegaly with normal bowel sounds Extremity exam reveals no edema no cyanosis or clubbing Neurological examination reveals no gross focal deficits - Labs CBC & Chem 7: 06/27/22 07:09 06/27/22 07:09 Labs: Abnormal Lab Results - Last 24 Hours (Table) 06/27/22 06/27/22 06/27/22 Range/Units 07:09 07:09 11:49 WBC 15.28 H (4.50-10.00) X 10*3/uL RBC 4.02 L (4.40-5.60) X 10*6/uL Hgb 10.0 L (13.0-17.0) g/dL Hct 32.5 L (39.6-50.0) % MCH 24.9 L (27.0-32.0) pg MCHC 30.8 L (32.0-37.0) g/dL RDW 16.5 H (11.5-14.5) % Immature Gran # 0.07 H (0.00-0.04) X 10*3/uL Neutrophils # 12.68 H (1.80-7.70) X 10*3/uL Monocytes # 1.12 H (0.20-1.00) X 10*3/uL Eosinophils # 0 L (0.04-0.35) X 10*3/uL D-Dimer (<0.60) mg/L FEU BUN 42.0 H (9.0-27.0) mg/dL Creatinine 2.1 H (0.6-1.5) mg/dL Est GFR (CKD-EPI)AfAm 34.4 L (60.0-200.0) Est GFR (CKD-EPI)NonAf 29.7 L (60.0-200.0) Glucose 230 H (70-110) mg/dL POC Glucose (mg/dL) 318 H (70-110) mg/dL Calcium 8.2 L (8.7-10.3) mg/dL AST 36 H (14-35) U/L Albumin/Globulin Ratio 1.34 L (1.60-3.17) g/dL 06/27/22 06/27/22 06/27/22 Range/Units 12:11 16:49 20:10 WBC (4.50-10.00) X 10*3/uL RBC (4.40-5.60) X 10*6/uL Hgb (13.0-17.0) g/dL Hct (39.6-50.0) % MCH (27.0-32.0) pg MCHC (32.0-37.0) g/dL RDW (11.5-14.5) % Immature Gran # (0.00-0.04) X 10*3/uL Neutrophils # (1.80-7.70) X 10*3/uL Monocytes # (0.20-1.00) X 10*3/uL Eosinophils # (0.04-0.35) X 10*3/uL D-Dimer 0.64 H (<0.60) mg/L FEU BUN (9.0-27.0) mg/dL Creatinine (0.6-1.5) mg/dL Est GFR (CKD-EPI)AfAm (60.0-200.0) Est GFR (CKD-EPI)NonAf (60.0-200.0) Glucose (70-110) mg/dL POC Glucose (mg/dL) 247 H 183 H (70-110) mg/dL Calcium (8.7-10.3) mg/dL AST (14-35) U/L Albumin/Globulin Ratio (1.60-3.17) g/dL 06/28/22 06/28/22 06/28/22 Range/Units 07:37 07:38 08:08 WBC (4.50-10.00) X 10*3/uL RBC (4.40-5.60) X 10*6/uL Hgb (13.0-17.0) g/dL Hct (39.6-50.0) % MCH (27.0-32.0) pg MCHC (32.0-37.0) g/dL RDW (11.5-14.5) % Immature Gran # (0.00-0.04) X 10*3/uL Neutrophils # (1.80-7.70) X 10*3/uL Monocytes # (0.20-1.00) X 10*3/uL Eosinophils # (0.04-0.35) X 10*3/uL D-Dimer (<0.60) mg/L FEU BUN (9.0-27.0) mg/dL Creatinine (0.6-1.5) mg/dL Est GFR (CKD-EPI)AfAm (60.0-200.0) Est GFR (CKD-EPI)NonAf (60.0-200.0) Glucose (70-110) mg/dL POC Glucose (mg/dL) 45 L 42 L 55 L (70-110) mg/dL Calcium (8.7-10.3) mg/dL AST (14-35) U/L Albumin/Globulin Ratio (1.60-3.17) g/dL 06/28/22 06/28/22 06/28/22 Range/Units 08:29 08:32 08:42 WBC (4.50-10.00) X 10*3/uL RBC (4.40-5.60) X 10*6/uL Hgb (13.0-17.0) g/dL Hct (39.6-50.0) % MCH (27.0-32.0) pg MCHC (32.0-37.0) g/dL RDW (11.5-14.5) % Immature Gran # (0.00-0.04) X 10*3/uL Neutrophils # (1.80-7.70) X 10*3/uL Monocytes # (0.20-1.00) X 10*3/uL Eosinophils # (0.04-0.35) X 10*3/uL D-Dimer (<0.60) mg/L FEU BUN (9.0-27.0) mg/dL Creatinine (0.6-1.5) mg/dL Est GFR (CKD-EPI)AfAm (60.0-200.0) Est GFR (CKD-EPI)NonAf (60.0-200.0) Glucose (70-110) mg/dL POC Glucose (mg/dL) 34 L 36 L 42 L (70-110) mg/dL Calcium (8.7-10.3) mg/dL AST (14-35) U/L Albumin/Globulin Ratio (1.60-3.17) g/dL 06/28/22 Range/Units 09:36 WBC (4.50-10.00) X 10*3/uL RBC (4.40-5.60) X 10*6/uL Hgb (13.0-17.0) g/dL Hct (39.6-50.0) % MCH (27.0-32.0) pg MCHC (32.0-37.0) g/dL RDW (11.5-14.5) % Immature Gran # (0.00-0.04) X 10*3/uL Neutrophils # (1.80-7.70) X 10*3/uL Monocytes # (0.20-1.00) X 10*3/uL Eosinophils # (0.04-0.35) X 10*3/uL D-Dimer (<0.60) mg/L FEU BUN (9.0-27.0) mg/dL Creatinine (0.6-1.5) mg/dL Est GFR (CKD-EPI)AfAm (60.0-200.0) Est GFR (CKD-EPI)NonAf (60.0-200.0) Glucose (70-110) mg/dL POC Glucose (mg/dL) 157 H (70-110) mg/dL Calcium (8.7-10.3) mg/dL AST (14-35) U/L Albumin/Globulin Ratio (1.60-3.17) g/dL Microbiology - Last 24 Hours (Table) 06/27/22 08:18 Gram Stain - Preliminary Sputum Sputum Culture - Preliminary 06/26/22 04:24 Blood Culture - Preliminary Blood No Growth after 48 hours Assessment and Plan Plan: Left lower lobe pneumonia, related to community-acquired pneumonia versus acute coronary pneumonia, patient started on IV antibiotic ceftriaxone and Zithromax in the emergency room Acute hypoxic respiratory failure Underlying history of coronary artery disease Underlying history of COPD Underlying history of coronary artery disease Underlying history of diabetes mellitus Underlying history of hypertension Underlying history of hyperlipidemia Difficulty sleeping at night patient requesting a sleeping pill At this time patient is admitted to medical floor he was started on IV fluid, IV antibiotic, oxygen supplements, home medications reviewed and reordered Pulmonary consultation requested will follow closely
[2022-06-28 12:01] LABS: Glucose,Whole Blood 126 mg/dL (70-110)
[2022-06-28] MEDS: BENZOCAINE/MENTHOL LOZENG 1 EACH LOZENGE MUCOUS MEM PRN ×2 (14:10→21:59)
[2022-06-28] MEDS: guaiFENesin SYRUP 100MG/5ML 200 MG/10 ML CUP PO PRN (14:10)
[2022-06-28 16:36] LABS: Glucose,Whole Blood 151 mg/dL (70-110)
[2022-06-28] MEDS ORDERED: MELATONIN 5 MG TABLET PO SCH (21:00)
[2022-06-28 21:01] LABS: Glucose,Whole Blood 260 mg/dL (70-110)
[2022-06-28] MEDS: LORATADINE 10 MG TAB PO SCH (21:59)
[2022-06-29] MEDS: ZOLPIDEM 5 MG TAB PO PRN (00:33)
[2022-06-29] MEDS: BENZOCAINE/MENTHOL LOZENG 1 EACH LOZENGE MUCOUS MEM PRN ×2 (00:33→04:48)
[2022-06-29 02:15] LABS: Glucose,Whole Blood 223 mg/dL (70-110)
[2022-06-29] MEDS: guaiFENesin SYRUP 100MG/5ML 200 MG/10 ML CUP PO PRN (04:48)
[2022-06-29 06:57] LABS: Glucose,Whole Blood 128 mg/dL (70-110)
[2022-06-29] MEDS: ALBUTEROL HFA INHALER INHALATION SCH ×3 (07:54→15:58)
[2022-06-29] MEDS: TIOTROPIUM 2.5 MCG INHALER INHALATION SCH (07:54)
[2022-06-29] MEDS: CALCIUM CARBONATE 500 MG CHEWABLE PO SCH (08:08)
[2022-06-29] MEDS: CLOPIDOGREL 75 MG TAB PO SCH (08:08)
[2022-06-29] MEDS: MULTIVITAMINS, THERA 1 EACH TAB PO SCH (08:08)
[2022-06-29] MEDS: FUROSEMIDE 40 MG TAB PO SCH (08:08)
[2022-06-29] MEDS: CHOLECALCIFEROL 10 MCG (400 IU) TABLET PO SCH (08:09)
[2022-06-29] MEDS: ASCORBIC ACID 500 MG TAB PO SCH (08:09)
[2022-06-29] MEDS: lisinopriL 20 MG TAB PO SCH (08:09)
[2022-06-29] MEDS: DULoxetine HCL 30 MG CAPSULE.DR PO SCH (08:09)
[2022-06-29] MEDS: SOTALOL 80 MG TAB PO SCH (08:09)
[2022-06-29] MEDS: AZITHROMYCIN 500 MG TAB PO SCH (08:09)
[2022-06-29] MEDS: cilostazoL 100 MG TAB PO SCH (08:09)
[2022-06-29] MEDS: INSULIN NPH 300 UNIT/3 ML VIAL SQ SCH (08:21)
[2022-06-29] MEDS: LEVOTHYROXINE 100 MCG TAB PO SCH (08:23)
[2022-06-29 10:16] VITALS: RESP 17
[2022-06-29] MEDS: SODIUM CHLORIDE 0.9% 1,000 ML IV SCH (11:15)
[2022-06-29 11:37] LABS: Glucose,Whole Blood 182 mg/dL (70-110)
--- NOTE | 2022-06-29 12:49 | P.PN ---
Subjective Progress Note Date: 06/29/22 This is a very pleasant 77-year-old male patient who follows with Dr. Alvarado as his primary care provider. He has a history of hyperlipidemia, depression, diabetes mellitus, thyroid cancer, left adrenal gland cancer,, diabetic neuropathy, coronary artery disease with previous stent placement, atrial fibr illation, COVID-19 infection in December 2020. He had received 1 vaccine dose prior to his infection and none since that time. He did have ongoing issues with shortness of breath and was last seen in our office in May 2021. His FEV1 value was 53% of predicted. Yesterday he developed chills, cough congestion shortness of breath and presented here to the emergency room today for the same. He is seen in consultation in the emergency department. He is currently sitting up on the stretcher. Awake and alert in no acute distress. He does have a loose productive cough and presenting temperature of 102.9. He was 87% O2 saturation on room air. Chest x-ray reveals bilateral basal infiltrates. Not consistent with COVID-19 pneumonia however he did test positive for CoVID today. He is given ceftriaxone and azithromycin. Initiated on Decadron. White count 12.0. Hemoglobin 10.4. Platelets 203. Lymphocytes 0.9. D-dimer 0.81. Sodium 137. Potassium 5.2. Chloride 102. BUN 35. Creatinine 2.11. Glucose 191. AST 31. ALT 21. ProBNP 449. Influenza screen negative. The patient is seen today 06/27/2022 in follow-up on the regular medical floor. He is currently sitting up in a chair at the bedside. Awake and alert in no acute distress. He is still having some dyspnea on exertion. Cough and congestion. Maintaining O2 saturations in the mid 90s on room air. He's been afebrile. Hemodynamically stable. Blood culture reveals no growth to date. He is Continued on ceftriaxone, azithromycin, bronchodilators. Patient seen today 06/28/2022 in follow-up on the regular medical floor. He is awake and alert in no acute distress. Currently sitting up in a chair at the bedside. Still with some congestion and cough. He is maintaining O2 saturations in the 90s on 2 L/m per nasal cannula. Normal saline at 20 ML's per hour. Follow-up chest x-ray reveals some improved lung volumes with consistent atelectasis versus pulmonary edema of the lower lung bases. A culture reveals no growth to date. Sputum culture pending. Blood glucose 157. He is continued on ceftriaxone and azithromycin along with albuterol and Spiriva. The patient is seen today 06/29/2022 in follow-up on the regular medical floor. He is currently up ambulating in his room. Awake and alert in no acute distress. Maintaining O2 saturations in the low 90s on room air. Afebrile. Hemodynamically stable. Blood cultures reveal no growth. Sputum culture revealed no growth. Blood glucose 182. He remains on ceftriaxone. Completed a course of azithromycin. Continue bronchodilators. Objective - Vital Signs Vital signs: Vital Signs Temp 97.6 F 06/29/22 10:00 Pulse 78 06/29/22 10:00 Resp 17 06/29/22 10:00 BP 102/65 06/29/22 10:00 Pulse Ox 92 L 06/29/22 10:00 FiO2 Intake & Output 06/28/22 06/29/22 06/29/22 18:59 06:59 18:59 Other: # Voids 3 - Exam GENERAL EXAM: Alert, pleasant 77-year-old male patient, on room air, fairly comfortable in no apparent distress. HEAD: Normocephalic. EYES: Normal reaction of pupils, equal size. NOSE: Clear with pink turbinates. THROAT: No erythema or exudates. NECK: No masses, no JVD. CHEST: No chest wall deformity. LUNGS: Equal air entry with bilateral scattered rhonchi. CVS: S1 and S2 normal with no audible murmur, regular rhythm. ABDOMEN: No hepatosplenomegaly, normal bowel sounds, no guarding or rigidity. SPINE: No scoliosis or deformity SKIN: No rashes CENTRAL NERVOUS SYSTEM: No focal deficits, tone is normal in all 4 extremities. EXTREMITIES: There is no peripheral edema. No clubbing, no cyanosis. Peripheral pulses are intact. - Labs CBC & Chem 7: 06/27/22 07:09 06/27/22 07:09 Labs: Abnormal Lab Results - Last 24 Hours (Table) 06/28/22 06/28/22 06/29/22 Range/Units 16:34 20:57 02:13 POC Glucose (mg/dL) 151 H 260 H 223 H (70-110) mg/dL 06/29/22 06/29/22 Range/Units 06:56 11:35 POC Glucose (mg/dL) 128 H 182 H (70-110) mg/dL Microbiology - Last 24 Hours (Table) 06/27/22 08:18 Gram Stain - Final Sputum Sputum Culture - Final 06/26/22 04:24 Blood Culture - Preliminary Blood No Growth after 72 hours Assessment and Plan Assessment: Acute hypoxemic respiratory failure secondary to community acquired pneumonia versus CoVID pneumonia. The patient did test positive for COVID-19. However chest x-ray reveals bilateral infiltrates not consistent with COVID-19. Initiated on ceftriaxone and azithromycin. Pro-calcitonin 0.15. Febrile illness secondary to above, improved Mild leukocytosis Hypertension Hyperlipidemia Diabetes mellitus History of atrial fibrillation History of thyroid cancer History of left adrenal gland cancer Coronary artery disease with previous multiple stent placement, previous bypass surgery Former smoker Previous history of COVID-19 pneumonia in 2020 Plan: The patient was seen and evaluated Continue ceftriaxone Continue bronchodilators Increase his activity as tolerated We will continue to follow I have personally seen and examined the patient, performed the documentation and the assessment and plan as written. Number of minutes spent on the visit: 10. I have personally seen and examined the patient and reviewed the documentation. I performed a joint evaluation with the nurse practitioner in this evaluation was done more than 20 minutes. I fully agree with the documentation above and the plan of care.. The patient is doing well. The patient is currently testing positive for Covid 19 and the patient is suspected to have a superinfection. The patient on a combination of Rocephin and Zithromax. Pro-calcitonin level is mildly elevated. Overall condition is stable. Clinically improving. We'll continue to follow.
[2022-06-29 14:27] VITALS: BP 110/67; PULSE 84; TEMP 97.7
--- NOTE | 2022-06-29 17:02 | P.PN ---
Subjective Progress Note Date: 06/29/22 Abhi Posadas, shiv is a 77-year-old male who presented to [facility] emergency room with a chief complaint of cough and shortness of breath He was evaluated in the emergency room vital examination on presentation revealed a temperature of 102.9 pulse 107 respiration 28 blood pressure 132/59 pulse ox 87% on room air Laboratory data reveals a white blood count of 12.0 hemoglobin 10.4 platelet count 203 BUN 35 creatinine 2.11 Testing in the emergency room revealed chest x-ray done in the emergency room revealed patchy air space disease in the left base Patient was admitted to medical floor for further evaluation and treatment Past medical history is significant for history of diabetes mellitus, history of coronary artery disease with previous history of coronary artery bypass graft surgery, history of hypertension, history of hyperlipidemia, history of atrial fibrillation, he had a previous history of hospitalization for COVID-19 pneumonia in December 2020 he was hospitalized at [facility] at that time and had a prolonged illness. On review of systems patient is alert and oriented 3 in no apparent distress he is complaining of cough and shortness of breath otherwise he denies any complaints there is no chills no headache or dizziness no chest pain no nausea or vomiting no abdominal pain no diarrhea no blood in the stools no burning with urination no frequency or urgency and no hematuria On 06/27/2022 patient was seen and examined on the medical floor, he is alert and oriented 3 in no apparent distress he is complaining of cough and difficulty sleeping at night otherwise he denies any complaints there is no fever or chills no headache or dizziness no chest pain no shortness of breath at rest he has some shortness of breath when he tries to walk there is no nausea or vomiting no abdominal pain no diarrhea no blood in the stools no burning with urination no frequency or urgency and no hematuria On 06/28/2022 patient was seen and examined on the medical floor he is alert and oriented 3 in no apparent distress he is complaining of sore throat otherwise he denies any complaints there is no fever or chills no headache or dizziness no chest pain no shortness of breath no cough no nausea or vomiting no abdominal pain no diarrhea and no urinary symptoms. On 06/29/2022 patient was seen and examined on the medical floor he is alert and oriented 3 in no apparent distress he reports improvement in his cough and shortness of breath he denies any complaints there is no fever or chills no headache or dizziness no chest pain no shortness of breath no cough no nausea or vomiting no abdominal pain no diarrhea and no urinary symptoms Objective - Vital Signs Vital signs: Vital Signs Temp 97.8 F 06/29/22 06:00 Pulse 71 06/29/22 06:00 Resp 18 06/29/22 06:00 BP 121/68 06/29/22 06:00 Pulse Ox 96 06/29/22 06:00 FiO2 Intake & Output 06/28/22 06/29/22 06/29/22 18:59 06:59 18:59 Other: # Voids 3 - Exam In general patient is alert and oriented x 3 in no distress HEENT head normocephalic and atraumatic Neck is supple no JVD no goiter no lymphadenopathy no carotid bruit Chest examination reveals a crackles in both lung bases no wheezing Cardiac exam reveals regular heart sounds S1 and S2 no gallops no murmurs, with tachycardia Abdomen is soft nontender no organomegaly with normal bowel sounds Extremity exam reveals no edema no cyanosis or clubbing Neurological examination reveals no gross focal deficits - Labs CBC & Chem 7: 06/27/22 07:09 06/27/22 07:09 Labs: Abnormal Lab Results - Last 24 Hours (Table) 06/28/22 06/28/22 06/28/22 Range/Units 11:59 16:34 20:57 POC Glucose (mg/dL) 126 H 151 H 260 H (70-110) mg/dL 06/29/22 06/29/22 Range/Units 02:13 06:56 POC Glucose (mg/dL) 223 H 128 H (70-110) mg/dL Microbiology - Last 24 Hours (Table) 06/26/22 04:24 Blood Culture - Preliminary Blood No Growth after 72 hours 06/27/22 08:18 Gram Stain - Preliminary Sputum Sputum Culture - Preliminary Assessment and Plan Plan: Left lower lobe pneumonia, related to community-acquired pneumonia versus acute coronary pneumonia, patient started on IV antibiotic ceftriaxone and Zithromax in the emergency room Acute hypoxic respiratory failure Underlying history of coronary artery disease Underlying history of COPD Underlying history of coronary artery disease Underlying history of diabetes mellitus Underlying history of hypertension Underlying history of hyperlipidemia Difficulty sleeping at night patient requesting a sleeping pill At this time patient is admitted to medical floor he was started on IV fluid, IV antibiotic, oxygen supplements, home medications reviewed and reordered Pulmonary consultation requested will follow closely
--- NOTE | 2022-06-29 17:06 | P.DS ---
Providers Date of admission: 06/26/22 07:11 Expected date of discharge: 06/29/22 Attending physician: Jesica Doran Consults: 06/26/22 07:04 Consult Physician Routine Consulting Provider: Rafael Cates Consult Reason/Comments: Covid 19. Pneumonia. Low SPO2 Do you want consulting provider notified?: Yes [facility] Course: Diagnosis on discharge: Left lower lobe pneumonia, related to community-acquired pneumonia versus acute coronary pneumonia, patient started on IV antibiotic ceftriaxone and Zithromax in the emergency room Acute hypoxic respiratory failure Underlying history of coronary artery disease Underlying history of COPD Underlying history of coronary artery disease Underlying history of diabetes mellitus Underlying history of hypertension Underlying history of hyperlipidemia Difficulty sleeping at night patient requesting a sleeping pill Hospital course: Abhi Posadas, he is a 77-year-old male who presented to [facility] emergency room with a chief complaint of cough and shortness of breath He was evaluated in the emergency room vital examination on presentation revealed a temperature of 102.9 pulse 107 respiration 28 blood pressure 132/59 pulse ox 87% on room air Laboratory data reveals a white blood count of 12.0 hemoglobin 10.4 platelet count 203 BUN 35 creatinine 2.11 Testing in the emergency room revealed chest x-ray done in the emergency room revealed patchy air space disease in the left base Patient was admitted to medical floor for further evaluation and treatment Past medical history is significant for history of diabetes mellitus, history of coronary artery disease with previous history of coronary artery bypass graft surgery, history of hypertension, history of hyperlipidemia, history of atrial fibrillation, he had a previous history of hospitalization for COVID-19 pneumonia in December 2020 he was hospitalized at [facility] at that time and had a prolonged illness. On review of systems patient is alert and oriented 3 in no apparent distress he is complaining of cough and shortness of breath otherwise he denies any complaints there is no chills no headache or dizziness no chest pain no nausea or vomiting no abdominal pain no diarrhea no blood in the stools no burning with urination no frequency or urgency and no hematuria On 06/27/2022 patient was seen and examined on the medical floor, he is alert and oriented 3 in no apparent distress he is complaining of cough and difficulty sleeping at night otherwise he denies any complaints there is no fever or chills no headache or dizziness no chest pain no shortness of breath at rest he has some shortness of breath when he tries to walk there is no nausea or vomiting no abdominal pain no diarrhea no blood in the stools no burning with urination no frequency or urgency and no hematuria On 06/28/2022 patient was seen and examined on the medical floor he is alert and oriented 3 in no apparent distress he is complaining of sore throat otherwise he denies any complaints there is no fever or chills no headache or dizziness no chest pain no shortness of breath no cough no nausea or vomiting no abdominal pain no diarrhea and no urinary symptoms. On 06/29/2022 patient was seen and examined on the medical floor he is alert and oriented 3 in no apparent distress he reports improvement in his cough and shortness of breath he denies any complaints there is no fever or chills no headache or dizziness no chest pain no shortness of breath no cough no nausea or vomiting no abdominal pain no diarrhea and no urinary symptoms. On 06/29/2022 in the afternoon I received multiple messages from patient's nurse Tabatha Benitez, inquiring about the patient discharged, I have reviewed pulmonary note and it clearly states that patient is to continue on IV Rocephin there is no pulmonary clearance for discharge. I asked the nurse to contact pulmonary and see if he is ready to be discharged to add an addendum to the note, this never happened, I called Dr. Negron myself and he stated that patient would benefit of staying in the hospital and receiving more IV Rocephin. I went back and talked to the patient and he was insisting on going home. He will signed AGAINST MEDICAL ADVICE and leave the hospital Patient Condition at Discharge: Poor Plan - Discharge Summary Discharge Rx Participant: No New Discharge Prescriptions: No Action Cetirizine HCl [Zyrtec] 10 mg PO HS Gabapentin [Neurontin] 800 mg PO QID PRN PRN Reason: neuropathy cilostazoL [Pletal] 100 mg PO BID Levothyroxine Sodium [Levoxyl] 200 mcg PO QAM Clopidogrel [Plavix] 75 mg PO DAILY Vitamin B Complex 1 cap PO DAILY Melatonin 15 mg PO HS Furosemide [Lasix] 40 mg PO DAILY tab Ubidecarenone [Co Q-10] 100 mg PO DAILY Atorvastatin Calcium [Lipitor] 40 mg PO HS Ascorbic Acid [Vitamin C] 500 mg PO DAILY DULoxetine HCL [Cymbalta] 30 mg PO QAM Multivit-Min/FA/Lycopen/Lutein [Centrum Silver Tablet] 1 tab PO DAILY [place]-3 Fatty Acids/Fish Oil [Fish Oil 1,000 mg Softgel] 1 cap PO HS Insulin NPH Human Isophane [NovoLIN N] 90 units SQ BID Insulin Regular, Human [NovoLIN R] See Protocol SQ AC-TID PRN PRN Reason: Blood Sugar - High rOPINIRole HCL [Requip XL] 4 mg PO HS Sotalol [Betapace] 80 mg PO BID Cholecalciferol [Vitamin D3 (10 Mcg = 400 Iu)] 10 mcg PO DAILY Calcium Carbonate 500 mg PO BID lisinopriL [Prinivil] 20 mg PO BID Discharge Medication List Cetirizine HCl [Zyrtec] 10 mg PO HS 04/23/15 [History] Clopidogrel [Plavix] 75 mg PO DAILY 04/23/15 [History] Gabapentin [Neurontin] 800 mg PO QID PRN 04/23/15 [History] Levothyroxine Sodium [Levoxyl] 200 mcg PO QAM 04/23/15 [History] Melatonin 15 mg PO HS 04/23/15 [History] Vitamin B Complex 1 cap PO DAILY 04/23/15 [History] cilostazoL [Pletal] 100 mg PO BID 04/23/15 [History] Furosemide [Lasix] 40 mg PO DAILY tab 04/26/15 [Rx] Atorvastatin Calcium [Lipitor] 40 mg PO HS 03/02/17 [History] Ubidecarenone [Co Q-10] 100 mg PO DAILY 03/02/17 [History] Ascorbic Acid [Vitamin C] 500 mg PO DAILY 03/04/17 [History] DULoxetine HCL [Cymbalta] 30 mg PO QAM 03/04/17 [History] Multivit-Min/FA/Lycopen/Lutein [Centrum Silver Tablet] 1 tab PO DAILY 03/04/17 [History] [place]-3 Fatty Acids/Fish Oil [Fish Oil 1,000 mg Softgel] 1 cap PO HS 03/04/17 [History] Insulin NPH Human Isophane [NovoLIN N] 90 units SQ BID 09/25/20 [History] Insulin Regular, Human [NovoLIN R] See Protocol SQ AC-TID PRN 09/25/20 [History] Sotalol [Betapace] 80 mg PO BID 09/25/20 [History] rOPINIRole HCL [Requip XL] 4 mg PO HS 09/25/20 [History] Calcium Carbonate 500 mg PO BID 06/26/22 [History] Cholecalciferol [Vitamin D3 (10 Mcg = 400 Iu)] 10 mcg PO DAILY 06/26/22 [History] lisinopriL [Prinivil] 20 mg PO BID 06/26/22 [History] Follow up Appointment(s)/Referral(s): Maria T Alvarado MD [Primary Care Provider] - 1-2 days Patient Instructions/Handouts: COVID-19 (Coronavirus Disease 2019) (DC), COVID- 19 and Chronic Health Conditions (DC), COVID-19: Slow the Coronavirus Spread (DC)
== END 2022-06-29 17:00 | disposition left against medical advice (07) | DRG 177 ==
LOC: EC 02:45 → 4SSUR 07:11
PROVIDERS: ADMIT Internal Medicine; ATTEND Internal Medicine
DX: U07.1 COVID-19 (principal); J12.82 Pneumonia due to coronavirus disease 2019; J96.01 Acute respiratory failure with hypoxia; I47.1 Supraventricular tachycardia; J44.0 Chronic obstructive pulmonary disease with (acute) lower respiratory infection; E11.41 Type 2 diabetes mellitus with diabetic mononeuropathy; I13.10 Hypertensive heart and chronic kidney disease without heart failure, with stage 1 through stage 4 chronic kidney disease, or unspecified chronic kidney disease; E89.0 Postprocedural hypothyroidism; F32.A Depression, unspecified; J98.6 Disorders of diaphragm; I25.10 Atherosclerotic heart disease of native coronary artery without angina pectoris; E78.5 Hyperlipidemia, unspecified; G47.9 Sleep disorder, unspecified; I48.91 Unspecified atrial fibrillation; M47.816 Spondylosis without myelopathy or radiculopathy, lumbar region; F40.240 Claustrophobia; I45.10 Unspecified right bundle-branch block; N18.30 Chronic kidney disease, stage 3 unspecified; Z20.822 Contact with and (suspected) exposure to COVID-19; Z95.1 Presence of aortocoronary bypass graft; Z79.02 Long term (current) use of antithrombotics/antiplatelets; Z79.890 Hormone replacement therapy; Z79.4 Long term (current) use of insulin; Z91.030 Bee allergy status; Z88.8 Allergy status to other drugs, medicaments and biological substances; Z88.6 Allergy status to analgesic agent; Z85.850 Personal history of malignant neoplasm of thyroid; Z87.891 Personal history of nicotine dependence; Z95.5 Presence of coronary angioplasty implant and graft; Z85.858 Personal history of malignant neoplasm of other endocrine glands; Z90.49 Acquired absence of other specified parts of digestive tract; Z79.899 Other long term (current) drug therapy; Z98.890 Other specified postprocedural states; Z90.89 Acquired absence of other organs; Z91.048 Other nonmedicinal substance allergy status; Z80.8 Family history of malignant neoplasm of other organs or systems; Z80.0 Family history of malignant neoplasm of digestive organs; Z87.19 Personal history of other diseases of the digestive system
CPT/HCPCS: 36415; 71045; 80053; 83605; 83735; 83880; 84145; 84484; 85025; 85379; 85610; 85730; 87040; 87070; 87205; 87502; 87635; 93005; 94640; 94760; 96365; 96366; 99285

== ENCOUNTER → 2022-07-20 | Outpatient (CLI) | payer MEDICARE ==
--- NOTE | 2022-07-20 11:25 | CT ---
EXAMINATION TYPE: CT chest wo con DATE OF EXAM: 07/20/2022 COMPARISON: 02/04/2012, 03/04/2017 HISTORY: Shortness of breath, solitary pulmonary nodule CT DLP: 898 mGycm, Automated exposure control for dose reduction was used. CONTRAST: Performed injected with 0 mL of Isovue 300. TECHNIQUE: Axial images were obtained at 5 mm thick sections. Reconstructed images are reviewed on [employer] computer in the coronal plane. FINDINGS: Portion of the thyroid visualized is normal. There is some mild infiltrate just above the right diaphragm with air bronchograms particularly for a telectasis. Early pneumonia could be considered. Follow-up can be performed as clinically indicated. There is a tiny 0.5 cm nodule within the anterior right lung base measuring 0.5 cm. Series 4 image 38 . This was present previously. 0.9 cm peripheral densities at the left lateral lung base. Series 4 image 46. This may be new. Some streak opacities to the posterior right lung most likely the basis of atelectasis. No enlarged mediastinal or hilar adenopathy is evident. The ascending aorta diameter at the level o f the main pulmonary artery is 5.3 cm. The main pulmonary artery diameter at the bifurcation is 4.2 cm. Dense coronary artery calcifications present. Limited CT sections are obtained through the upper abdomen. There is mild thickening of the right pos terior limb adrenal gland measuring 1.4 cm. This was present previously may be minimally enlarged fro m comparison studies. IMPRESSIONS: 1. Small nodular density periphery of the left lung base. Follow-up exam in 6 months is recommended. Stability over the course of 2 years. 2. Ascending thoracic aortic aneurysm of 5.3 cm.
== END | disposition home or self-care (01) ==
LOC: RADCTMAIN 09:28
PROVIDERS: ATTEND Family Medicine
DX: J98.4 Other disorders of lung (principal); I71.2 Thoracic aortic aneurysm, without rupture; Z87.01 Personal history of pneumonia (recurrent); Z86.16 Personal history of COVID-19
CPT/HCPCS: 71250